=== PATIENT | female | born 1945 | race Caucasian/White ===

== ENCOUNTER 2017-06-19 12:55 | Inpatient (IN) | payer OTHER, BC ==
[~2017-06-19] VITALS: Ht 157.5 cm; Wt 77.1 kg
--- NOTE | ~2017-06-19 | H ---
[facility] [place] [address] HISTORY AND PHYSICAL Name: SARAH GROVER Room #: 463-P ADM IN M.R.#: [id number] Admission: 06/19/17 Attend Phys: Lucien Portillo MD Discharge: Date of : 47 Report #: [id number] THIS REPORT FOR: //name// CC: Lucien Dennis Harvinder DATE OF SERVICE: 06/19/2017 CHIEF COMPLAINT: Right-sided weakness. HISTORY OF PRESENT ILLNESS: The patient is a 72-year-old female with a known history of chronic intermittent relapsing multiple sclerosis who was admitted to the emergency room from [facility] for right-sided weakness. She was seen in the emergency room several days ago with just a global complaint of weakness and trouble getting around. She was asking for rehabilitation efforts at that time. As she was relatively stable she was admitted to [facility]. However, over the next couple of days, she then began complaining of right arm weakness. She had some facial and arm tingling as well. She felt this represented an exacerbation of her MS as it is very similar to symptoms she has had in her right leg previously, which has left her with a right foot drop. She was directed to the emergency room yesterday and admitted for evaluation. PAST MEDICAL HISTORY: Hypertension, chronic MS, chronic recurrent urinary tract infections, neurogenic bladder with a history of retention. She has had a right hip fracture approximately one year ago and previously a right ankle fracture 2-3 years ago. PAST SURGICAL HISTORY: Noncontributory. FAMILY HISTORY: Unknown. SOCIAL HISTORY: She lives alone in her own home. She has a daughter in town. No chronic alcohol or tobacco use. ALLERGIES: BACLOFEN, GABAPENTIN, HYDROCORTISONE, LIDOCAINE, FLAGYL, NAPROXEN, OXYBUTYNIN, PENICILLIN, LYRICA, SULFA. MEDICATIONS: BuSpar, lisinopril, metoprolol, Flomax, Protonix, amlodipine. REVIEW OF SYSTEMS: She complains of urinary frequency. Denies headache, chest pain, shortness of breath, abdominal pain, nausea, vomiting, diarrhea, constipation, dysuria, syncope. OBJECTIVE: VITAL SIGNS: Temperature 36.7, pulse 54, respirations 20, blood pressure 153/85, O2 sat 97% on room air. [address] [address] HISTORY AND PHYSICAL Name: SARAH GROVER Room #: 463-[facility] IN M.R.#: [id number] Admission: 06/19/17 Attend Phys: Lucien Portillo MD Discharge: Date of : 46 Report #: [id number] GENERAL: She is awake and alert, in no distress. HEENT: She has facial symmetry. HEAD AND NECK: Unremarkable. She has poor dentition. Her speech is clear. LUNGS: Clear. HEART: Regular. ABDOMEN: Soft, normoactive bowel sounds. EXTREMITIES: No edema. NEUROLOGIC: She moves all extremities equally. She is alert and oriented. Her global strength appears intact throughout. There is slight discoordination of the right hand at forearm. LABORATORY DATA: Urinalysis has white cells, bacteria, leukocyte esterase, white count was 12.5. Chemistry is unremarkable. CT head did not show any acute ischemic or hemorrhagic change. ASSESSMENT: 1. Multiple sclerosis exacerbation. 2. Urinary tract infection. 3. Neurogenic bladder. 4. Hypertension. PLAN: Clinically, this does not appear to be a vascular ischemic event. Her symptoms have moderated intermittently over the last couple of days with symptoms reoccurring and relapsing. Also I do not see clinical signs of an acute pneumonia. Chest x-ray more represents atelectasis. She has had no shortness of breath, hypoxia, productive cough. In fact her elevated white count may be related to oral prednisone given at the other hospital for MS exacerbation. For now empiric antibiotics given the recent urinalysis findings, which are changed from June 16. Bladder scans to rule out retention, neurology consultation, MRI of the brain. <ELECTRONICALLY SIGNED> By: Lucien Portillo MD 06/21/17 1250 0954 1051 Lucien Portillo MD /nt
--- NOTE | ~2017-06-19 | D ---
[facility] [place] [address] DISCHARGE SUMMARY Name: SARAH GROVER Room #: 463-P [facility] IN M.R.#: [id number] Admission: 06/19/17 Attend Phys: Lucien Portillo MD Discharge: 06/22/17 Date of : 46 Report #: [id number] THIS REPORT FOR: //name// CC: Lucien Dennis Harvinder FINAL DIAGNOSES: 1. Multiple sclerosis. 2. Left occipital stroke. 3. Urinary tract infection. 4. Neurogenic bladder with retention. 5. Hypertension. HOSPITAL COURSE: The patient was admitted with right arm weakness and tingling. MRI of the brain revealed a small left occipital stroke. I did not feel this MRI finding explained her right arm symptoms. She was followed by the Neurology Service. They recommended additional treatment for MS. Otherwise, no other new interventions. She had gram-negative rods in the urine, which was a change from urinalysis from ER a few days ago. She had retention issues as well. She required straight catheter patient and a Mares breathing freely overnight. PHYSICAL EXAMINATION: GENERAL: On the day of discharge, she was awake and alert, in no distress. VITAL SIGNS: She had stable vital signs. LUNGS: Clear. HEART: Regular. ABDOMEN: Soft, normoactive bowel sounds. EXTREMITIES: No edema. PLAN: She will transfer back to [facility] under the care of Dr. Andrews. I have signed her transfer orders, medications, diet and physical and occupational therapy. <ELECTRONICALLY SIGNED> By: Lucien Portillo MD 07/04/17 0923 0932 1007 Lucien Portillo MD /nt
--- NOTE | ~2017-06-19 | EKG ---
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: [id number] : 1945 Requested By: Garrick Brandon Order Number: [id number] MD: Андрей Fitzgerald Measurements Intervals [place] Rate: 63 P: -6 NJ: 268 QRS: -40 QRSD: 99 T: 2 QT: 456 QTc: 467 Interpretive Statements Sinus rhythm Prolonged [place] interval Left axis deviation Low voltage, precordial leads Abnormal R-wave progression, late transition Borderline T abnormalities, anterior leads Compared to ECG 06/30/2016 19:31:05 No significant change was found Electronically Signed On 06-20-2017 17:49:24 CDT by Андрей Fitzgerald [email or web address] <ELECTRONICALLY SIGNED> By: Андрей Fitzgerald MD, [facility] 06/20/17 1749 1327 1327 Андрей Fitzgerald MD, [facility] /EPI
[~2017-06-19 12:55] MED LIST: AMITRIPTYLINE H50 M2 PO; AMITRIPTYLINE H75 M2; AMPYRA PO; AMPYRA10 MG PO; APAP500 PO; BENADRYL ITCH28.3 G1 TOP; BUSPAR 5 MG TABL5 M1 PO; BUSPIRONE; BUSPIRONE HCL10 MG PO; BUSPIRONE HCL5 MG PO; CEFUROXIME500 MG PO; CIPRO500 MG PO; CIPROFLOXACIN500 M1 OR; CIPROFLOXACIN500 M1 PO; CITRATE OF MAG296 ML PO; CLARITIN-D 24 H1 TA1 PO; CLARITIN10 MG; CLARITIN10 MG PO; COLACE100 MG PO; COPAXONE SUBQ; COPAXONE20 M1 SQ; CORICIDIN HBP1 EACH PO; CRESTOR10 MG; CRESTOR10 MG PO; DEEP SEA NASAL44 M1 NASAL; DITROPAN XL5 M1; DOXYCYCLINE 10100 MG PO; EAR WAX DROPS15 ML OTIC; ELOCON15 GM TP; ENOXAPARIN30 MG/0.1 SUBQ; ENOXAPARIN30 MG/0.3; FLAGYL 250 MG250 MG PO; FLOMAX0.4 MG PO; FLONASE 0.05%50 MCG NASAL; HCTZ; HYDROCERIN CREA1 JAR TOP; HYDROCODONE-AP1 EAC6 PO; HYDROCORTISON-A10 ML OTIC; LEVAQUIN 500 M500 M2 PO; LIORESAL 10 MG10 MG PO; LISINOPRIL; LISINOPRIL20 MG PO; LOPRESSOR25; LOPRESSOR50 PO; MIRALAX17 GM PO; NAPROSYN500 MG PO; NORCO 5-325 TA1 EACH PO; NORVASC 5 MG TAB5 MG PO; OMEPRAZOLE; OMEPRAZOLE 20 M20 MG PO; POTASSIUM20 PO; PREDNISONE50 MG PO; ROBAXIN 750 MG750 M1 PO; ROXICODONE5 MG; TOPROL XL25 MG; TRAMADOL 50 MG50 MG PO; TYLENOL325 MG PO; ULTRAM 50MG TAB50 MG PO; VALIUM5 MG PO; VESICARE 5 MG TA5 MG PO; VESICARE10 M1 PO; ZESTRIL; [UNRECOGNIZED DRUG - OTHER]; [UNRECOGNIZED DRUG - OTHER] PO
[2017-06-19 12:56] VITALS: BP 160/69
[2017-06-19] MEDS ORDERED: PROTONIX40 M1 PO (13:17)
[2017-06-19 14:45] LABS: ABSOLUTE NEUTROPHILS 8.6 thou/uL (1.4-8.2); BASOPHILS 0.4 % (0.0-2.0); EOSINOPHILS 0.7 % (0.0-3.0); HEMATOCRIT 42.5 % (37.0-47.0); HEMOGLOBIN 14.7 gm/dL (12.0-15.0); LYMPHOCYTES 20.3 % (24.0-44.0); MCH 31.4 pg (26.0-34.0); MCHC 34.6 g/dL (28.0-37.0); MCV 90.8 fL (80.0-100.0); MONOCYTES 9.8 % (1.0-8.0); PLATELET COUNT 331 thou/uL (150-400); POLYS 68.8 % (36.0-66.0); RBC 4.68 mil/uL (4.20-5.00); WBC 12.5 thou/uL (4.0-11.0)
[2017-06-19 14:53] LABS: URINE BILIRUBIN NEGATIVE (Negative); URINE BLOOD NEGATIVE (Negative); URINE COLOR YELLOW; URINE GLUCOSE-RANDOM* NEGATIVE (Negative); URINE KETONES NEGATIVE (Negative); URINE LEUKOCYTES-REFLEX 1+ (Negative); URINE PROTEIN (DIPSTICK) NEGATIVE (Negative); URINE UROBILINOGEN 0.2 E.U./dl (0.2-1.0)
[2017-06-19 14:57] LABS: MANUAL DIFF NO
[2017-06-19 15:01] LABS: AMORPHOUS URATES Moderate /LPF (None Seen); CASTS None Seen /LPF (None Seen); SQUAMOUS 4-10 Moderate /LPF (0-3); URINE RBC None Seen /HPF (0-2); URINE WBC-REFLEX 6-15 Few /HPF (0-5)
[2017-06-19 15:07] LABS: ANION GAP 11 mmol/L (7-16); BUN 24 mg/dL (7-18); CALCIUM 9.1 mg/dL (8.5-10.1); CHLORIDE 104 mmol/L (98-107); CO2 28 mmol/L (21-32); GLUCOSE 136 mg/dL (74-106); SODIUM 143 mmol/L (136-145)
[2017-06-19 15:12] LABS: ALBUMIN 3.8 g/dL (3.4-5.0); ALKALINE PHOSPHATASE 79 U/L (46-116); SGOT 30 U/L (15-37); SGPT 26 U/L (30-65); TOTAL BILIRUBIN 0.4 mg/dL (<0.1-1.0); TOTAL PROTEIN 8.1 g/dL (6.4-8.2); TROPONIN-I < 0.04 ng/mL (<0.04-0.07)
[2017-06-19 18:18] VITALS: BP 140/74
[2017-06-19 19:47] VITALS: BP 138/56
[2017-06-19 20:09] VITALS: BP 160/84
[2017-06-20 01:18] VITALS: BP 158/70
[2017-06-20 04:05] VITALS: BP 197/87
[2017-06-20 05:39] VITALS: BP 177/88
[2017-06-20 08:46] VITALS: BP 153/85
[2017-06-20 14:28] LABS: CHOLESTEROL 297 mg/dL (<200); HDL CHOLESTEROL 36 mg/dL (>40); LDL CHOLESTEROL 205 mg/dL (<100); TC:HDL 8.3 Ratio (Not establshd); TRIGLYCERIDE 284 mg/dL (<150); VLDL 57 mg/dL (<40)
[2017-06-20 17:21] VITALS: BP 160/89
[2017-06-20 20:16] VITALS: BP 156/60
[2017-06-21 04:24] VITALS: BP 136/70
[2017-06-21 05:31] LABS: ABSOLUTE NEUTROPHILS 3.9 thou/uL (1.4-8.2); BASOPHILS 0.5 % (0.0-2.0); EOSINOPHILS 2.4 % (0.0-3.0); HEMATOCRIT 43.4 % (37.0-47.0); HEMOGLOBIN 14.4 gm/dL (12.0-15.0); MCH 30.7 pg (26.0-34.0); MCHC 33.3 g/dL (28.0-37.0); MCV 92.1 fL (80.0-100.0); MONOCYTES 11.5 % (1.0-8.0); PLATELET COUNT 300 thou/uL (150-400); POLYS 46.6 % (36.0-66.0); RBC 4.71 mil/uL (4.20-5.00); RDW 13.1 % (10.5-14.5); WBC 8.4 thou/uL (4.0-11.0)
[2017-06-21 05:38] LABS: MANUAL DIFF NO
[2017-06-21 05:47] LABS: CALCIUM 8.7 mg/dL (8.5-10.1); CREATININE 0.8 mg/dL (0.6-1.0); POTASSIUM 3.3 mmol/L (3.5-5.1)
[2017-06-21 08:30] VITALS: BP 152/76
[2017-06-21 12:27] VITALS: BP 138/72
[2017-06-21 16:08] VITALS: BP 139/66
[2017-06-21 19:57] VITALS: BP 154/75
[2017-06-22 03:38] VITALS: BP 135/69
[2017-06-22] MEDS ORDERED: LIPITOR10 MG PO (09:26)
[2017-06-22] MEDS ORDERED: ASPIR 8181 MG PO (09:26)
[2017-06-22 10:06] VITALS: BP 121/64
== END 2017-06-22 16:10 | DRG 65 ==
LOC: ER 12:55 → EROBS 15:33 → 4W 15:33
PROVIDERS: Internal Medicine Geriatric Medicine; Physician Assistant; Psychiatry & Neurology Neurology
PROC: 0HQ0XZZ Repair Scalp Skin, External Approach (ICD-10-PCS; principal; 2017-06-19)
DX: I63.9 Cerebral infarction, unspecified (principal); N39.0 Urinary tract infection, site not specified; G81.91 Hemiplegia, unspecified affecting right dominant side; H54.41 Blindness, right eye, normal vision left eye; G35 Multiple sclerosis; I10 Essential (primary) hypertension; N31.9 Neuromuscular dysfunction of bladder, unspecified; F41.9 Anxiety disorder, unspecified; S01.91XA Laceration without foreign body of unspecified part of head, initial encounter; K57.90 Diverticulosis of intestine, part unspecified, without perforation or abscess without bleeding; E78.00 Pure hypercholesterolemia, unspecified; Z60.2 Problems related to living alone; Z98.42 Cataract extraction status, left eye; Z98.41 Cataract extraction status, right eye; Z90.710 Acquired absence of both cervix and uterus; Z87.440 Personal history of urinary (tract) infections; Z88.0 Allergy status to penicillin; Z88.2 Allergy status to sulfonamides; Z88.6 Allergy status to analgesic agent; Z88.8 Allergy status to other drugs, medicaments and biological substances; Z88.1 Allergy status to other antibiotic agents; Z88.4 Allergy status to anesthetic agent; Z91.048 Other nonmedicinal substance allergy status; Z91.81 History of falling; X58.XXXA Exposure to other specified factors, initial encounter; Y93.89 Activity, other specified; Y92.89 Other specified places as the place of occurrence of the external cause; Y99.8 Other external cause status
CPT/HCPCS: 10045

== ENCOUNTER 2017-11-09 10:00 | Inpatient (IN) | payer OTHER, BC ==
[~2017-11-09] VITALS: Ht 157.5 cm; Wt 77.1 kg
--- NOTE | ~2017-11-09 | H ---
[facility] [place] [address] HISTORY AND PHYSICAL Name: SARAH GROVER Room #: 170-24 ADM IN M.R.#: [id number] Admission: 11/09/17 Attend Phys: Jeannie Blanton MD Discharge: Date of : 46 Report #: [id number] THIS REPORT FOR: //name// CC: Andrey Blanton DATE OF SERVICE: 11/09/2017 CHIEF COMPLAINT: Weakness and a fall. HISTORY OF PRESENT ILLNESS: The patient is a 72-year-old female who presented to the ER from home after sustaining a fall. She said she lost her balance and had weakness in her legs and fell over backwards, hitting her head. She denied loss of consciousness, syncope or lightheaded type feelings. She said in the last few days, she has had difficulty emptying her bladder, has had urgent urinary symptoms. She does have a long history of progressive multiple sclerosis and neurogenic bladder with recurrent urinary tract infections as a result. She has had multiple falls and admissions to the hospital and rehab in the past and several years ago, even had a right ankle fracture, then a left hip fracture that required surgical repair, hospitalization and long-term rehab. Recently, she has been at home, but has plans to move to an assisted living facility in the near future. PAST MEDICAL HISTORY: Hypertension, multiple sclerosis since 2001, dyslipidemia. She had a previous right ankle fracture approximately 4 years ago, she had recurrent UTIs. She had a right hip fracture in 05/2016. FAMILY HISTORY: Noncontributory. SOCIAL HISTORY: No chronic alcohol or tobacco use. ALLERGIES: BACLOFEN, GABAPENTIN, HYDROCORTISONE, LIDOCAINE, METRONIDAZOLE, NAPROXEN, OXYBUTYNIN, PENICILLIN, LYRICA, SULFA. MEDICATIONS: Claritin, Prilosec, BuSpar, metoprolol, lisinopril, aspirin, Lipitor, Flomax. REVIEW OF SYSTEMS: She denies headache, chest pain, shortness of breath, abdominal pain, nausea, vomiting, diarrhea, constipation, dysuria, syncope. OBJECTIVE: VITAL SIGNS: Temperature 36.7, pulse , respirations 16, blood pressure /54, O2 sat 99% on room air. GENERAL: She is awake and alert, in no distress. HEAD AND NECK: Unremarkable. There is a bruise on the back of the scalp. She has poor dentition, which is chronic. [address] [address] HISTORY AND PHYSICAL Name: SARAH GROVER Room #: 170-24 ADM IN [facility]#: [id number] Admission: 11/09/17 Attend Phys: Jeannie Blanton MD Discharge: Date of : 46 Report #: [id number] LUNGS: Clear. HEART: Regular. ABDOMEN: Soft, normoactive bowel sounds. EXTREMITIES: Trace edema. NEUROLOGIC: She has rigid weakness, especially of the right leg. LABORATORY DATA: Urinalysis had leukocyte esterase, white cells, bacteria. White count is normal. Potassium 2.7, sodium 148, calcium 6.9. CT head showed no acute intracranial process. ASSESSMENT: 1. Acute cystitis. 2. Multiple sclerosis. 3. Electrolyte disturbance. 4. Hypertension. 5. Fall. 6. Gait disturbance. PLAN: She will be admitted for medical stabilization including electrolyte replacement, IV fluids, antibiotics and therapies. Ultimately, we will have social work assess her on her transition to assisted living. <ELECTRONICALLY SIGNED> By: Lucien Portillo MD 11/10/17 0858 1308 1326 Lucien Portillo MD /nt
--- NOTE | ~2017-11-09 | EKG ---
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 Babysitter: TAMICA : 1945 Requested By: Andrey Coughlin Order Number: [id number] MD: Pradip Lui Measurements Intervals [place] Rate: 57 P: 100 CO: 281 QRS: -32 QRSD: 96 T: -2 QT: 476 QTc: 464 Interpretive Statements Sinus rhythm Prolonged [place] interval Left axis deviation Low voltage, precordial leads Abnormal R-wave progression, late transition Compared to ECG 06/19/2017 13:27:52 T-wave abnormality no longer present Electronically Signed On 11-09-2017 16:06:40 YARD WORKER by Pradip Lui [email or web address] <ELECTRONICALLY SIGNED> By: Pradip Liu MD 11/09/17 1606 1031 1031 Pradip Lui MD /EPI
[~2017-11-09 10:00] MED LIST changes: +ASPIR 8181 MG PO; +LIPITOR10 MG PO; +PRILOSEC 20 MG20 MG PO; +PROTONIX40 M1 PO
[2017-11-09 10:01] VITALS: BP 158/54
[2017-11-09 11:34] LABS: ABSOLUTE NEUTROPHILS 5.5 thou/uL (1.4-8.2); BASOPHILS 0.7 % (0.0-2.0); EOSINOPHILS 1.5 % (0.0-3.0); HEMATOCRIT 41.4 % (37.0-47.0); HEMOGLOBIN 14.3 gm/dL (12.0-15.0); LYMPHOCYTES 20.7 % (24.0-44.0); MCH 30.9 pg (26.0-34.0); MCHC 34.6 g/dL (28.0-37.0); MCV 89.3 fL (80.0-100.0); MONOCYTES 8.8 % (1.0-8.0); PLATELET COUNT 331 thou/uL (150-400); POLYS 68.3 % (36.0-66.0); RBC 4.63 mil/uL (4.20-5.00); RDW 13.2 % (10.5-14.5)
[2017-11-09 11:41] LABS: ANION GAP 13 mmol/L (7-16); BUN 10 mg/dL (7-18); CALCIUM 6.9 mg/dL (8.5-10.1); CHLORIDE 106 mmol/L (98-107); CO2 29 mmol/L (21-32); CREATININE 0.9 mg/dL (0.6-1.0); GLUCOSE 139 mg/dL (74-106); SODIUM 148 mmol/L (136-145)
[2017-11-09 11:45] LABS: POTASSIUM 2.7 mmol/L (3.5-5.1)
[2017-11-09 11:51] LABS: URINE BILIRUBIN NEGATIVE (Negative); URINE BLOOD NEGATIVE (Negative); URINE CLARITY CLEAR; URINE COLOR YELLOW; URINE GLUCOSE-RANDOM* NEGATIVE (Negative); URINE KETONES NEGATIVE (Negative); URINE NITRITE-REFLEX NEGATIVE (Negative); URINE PROTEIN (DIPSTICK) NEGATIVE (Negative); URINE UROBILINOGEN 0.2 E.U./dl (0.2-1.0)
[2017-11-09 11:53] LABS: TROPONIN-I < 0.04 ng/mL (<0.06)
[2017-11-09 11:54] LABS: URINE LEUKOCYTES-REFLEX 2+ (Negative)
[2017-11-09 11:58] LABS: BACTERIA-REFLEX >30 Many /HPF (None Seen); CASTS None Seen /LPF (None Seen); CRYSTALS None Seen /LPF (None Seen); SQUAMOUS 0-3 Few /LPF (0-3); URINE RBC None Seen /HPF (0-2)
[2017-11-09] MEDS ORDERED: VESICARE 5 MG TA5 MG PO (13:22)
[2017-11-09] MEDS ORDERED: NORVASC10 MG PO (13:22)
[2017-11-09] MEDS ORDERED: ASPIR 8181 MG PO (13:23)
[2017-11-09 15:27] VITALS: BP 136/56
[2017-11-09 16:03] VITALS: BP 152/71
[2017-11-09 16:58] VITALS: BP 155/69
[2017-11-10 06:18] VITALS: BP 135/80
[2017-11-10 08:14] LABS: CALCIUM 6.7 mg/dL (8.5-10.1); CREATININE 0.8 mg/dL (0.6-1.0)
[2017-11-10 08:16] LABS: POTASSIUM 2.8 mmol/L (3.5-5.1)
[2017-11-10 11:00] VITALS: BP 164/54
[2017-11-10 11:30] VITALS: BP 130/69
[2017-11-10 11:42] VITALS: BP 130/69
[2017-11-10 13:59] LABS: CALCIUM 6.7 mg/dL (8.5-10.1); CREATININE 0.8 mg/dL (0.6-1.0)
[2017-11-10 14:01] LABS: POTASSIUM 2.8 mmol/L (3.5-5.1)
[2017-11-10 15:34] VITALS: BP 141/65
[2017-11-10 18:56] LABS: CALCIUM 6.7 mg/dL (8.5-10.1); CREATININE 0.9 mg/dL (0.6-1.0); POTASSIUM 3.2 mmol/L (3.5-5.1)
[2017-11-10 19:01] LABS: MAGNESIUM 0.6 mg/dL (1.8-2.4)
[2017-11-10 19:43] VITALS: BP 127/55
[2017-11-10 20:30] LABS: CALCIUM 6.5 mg/dL (8.5-10.1)
[2017-11-11 00:42] LABS: POTASSIUM 3.1 mmol/L (3.5-5.1)
[2017-11-11 01:42] LABS: ALBUMIN 3.1 g/dL (3.4-5.0); CALCIUM 6.5 mg/dL (8.5-10.1); TOTAL BILIRUBIN 0.3 mg/dL (<0.1-1.0); TOTAL PROTEIN 6.9 g/dL (6.4-8.2)
[2017-11-11 08:30] LABS: MAGNESIUM 2.7 mg/dL (1.8-2.4); POTASSIUM 3.8 mmol/L (3.5-5.1)
[2017-11-11 09:57] VITALS: BP 151/62
[2017-11-11 16:07] VITALS: BP 137/66
[2017-11-11 19:31] VITALS: BP 144/59
[2017-11-12 03:57] VITALS: BP 178/76
[2017-11-12 07:33] VITALS: BP 178/67
[2017-11-12 16:23] VITALS: BP 160/65
[2017-11-12 19:32] VITALS: BP 154/62
[2017-11-13 04:25] VITALS: BP 154/52
[2017-11-13 08:46] VITALS: BP 158/68
[2017-11-13] MEDS ORDERED: CIPRO500 MG PO (13:21)
[2018-02-06] MEDS ORDERED: MAGNESIUM400 MG PO (10:19)
[2018-02-06] MEDS ORDERED: TUMS PO (10:19)
[2018-02-06] MEDS ORDERED: VITAMIN D2000 UNIT PO (10:19)
== END 2017-11-13 18:00 | DRG 690 ==
LOC: ER 10:00 → EROBS 13:04 → ER 13:04 → 4S 13:04
PROVIDERS: Emergency Medicine; Internal Medicine Geriatric Medicine; Nurse Practitioner Family
DX: N30.00 Acute cystitis without hematuria (principal); E87.6 Hypokalemia; I10 Essential (primary) hypertension; E78.5 Hyperlipidemia, unspecified; G35 Multiple sclerosis; E87.8 Other disorders of electrolyte and fluid balance, not elsewhere classified; K57.90 Diverticulosis of intestine, part unspecified, without perforation or abscess without bleeding; F41.9 Anxiety disorder, unspecified; R26.9 Unspecified abnormalities of gait and mobility; E78.00 Pure hypercholesterolemia, unspecified; W18.39XA Other fall on same level, initial encounter; Y93.89 Activity, other specified; Y92.098 Other place in other non-institutional residence as the place of occurrence of the external cause; Y99.8 Other external cause status; Z87.81 Personal history of (healed) traumatic fracture; Z88.2 Allergy status to sulfonamides; Z88.0 Allergy status to penicillin; Z88.8 Allergy status to other drugs, medicaments and biological substances; Z98.42 Cataract extraction status, left eye; Z98.41 Cataract extraction status, right eye; Z90.710 Acquired absence of both cervix and uterus; Z79.899 Other long term (current) drug therapy
CPT/HCPCS: 10195

== ENCOUNTER 2017-11-13 15:35 | Inpatient (IN) | payer OTHER, BC ==
[~2017-11-13] VITALS: Ht 157.5 cm; Wt 84.8 kg
--- NOTE | ~2017-11-13 | PLAN ---
[facility] [place] [address] REHAB UNIT PLAN OF CARE Name: SARAH GROVER Room #: 511-P ADM IN M.R.#: [id number] Admission: 11/13/17 Attend Phys: Lucien Stephens MD Discharge: Date of : 46 Report #: [id number] THIS REPORT FOR: //name// CC: Lucien Dennis Harvinder DATE OF SERVICE: 11/15/2017 The patient is seen back today in followup. She is in no distress. Last recorded temperature 37.1, pulse 67, respirations 18, blood pressure 155/73. She is working in therapies with transfers, improving to a min assist. Gait has improved to min assist 68 feet 4-wheeled walker with a right AFO. In occupational therapy, lower body dressing is min assist. ASSESSMENT: 1. Multiple sclerosis exacerbation. 2. Acute cystitis. 3. Gait instability with frequent falls. 4. Electrolyte disturbance. 5. Hypertension. 6. Functional mobility and ADL deficits with a decline from premorbid. PLAN: The overall plan of care is based on the preadmission screen, post-admission physician evaluation and information garnered from therapy assessments. 1. Estimated length of stay is set for a week from today. Planning for discharge next Monday as per team conference yesterday. 2. Medical prognosis is reasonably good. 3. Anticipated interventions includes the interdisciplinary acute inpatient rehabilitation program with PT and OT, rehab nursing assisting regarding medication management, skin care prophylaxis, bowel and bladder issues and nursing education. The tour consultant physician continues to follow along with the interdisciplinary rehab therapy team. 4. Anticipated functional outcomes would be for the patient to become modified independent at a walker level, so that she can return back to the home setting. 5. Discharge destination would be back to her home. She is currently in the process of moving into an independent living apartment. 6. Expected therapy by discipline includes PT and OT 1-1/2 hours per day each 5 days a week throughout the duration of the acute inpatient rehabilitation stay. <ELECTRONICALLY SIGNED> By: Lucien Stephens MD 11/16/17 1442 1029 1633 Lucien Stehpens MD /[facility]
--- NOTE | ~2017-11-13 | H ---
[facility] [place] [address] HISTORY AND PHYSICAL Name: SARAH GROVER Room #: 511-P ADM IN M.R.#: [id number] Admission: 11/13/17 Attend Phys: Lucien Stephens MD Discharge: Date of : 46 Report #: [id number] THIS REPORT FOR: //name// CC: Lucien Dennis Harvinder DATE OF SERVICE: 11/13/2017 HISTORY AND PHYSICAL/POST-ADMISSION PHYSICIAN EVALUATION HISTORY OF PRESENT ILLNESS: The patient is a 72-year-old white female with history of multiple sclerosis since 2001, who was originally admitted to [facility] after sustaining a fall at home. She apparently lost her balance and had weakness in her legs and fell over backwards hitting her head. She denied loss of consciousness. In the few days prior to the previous admission, she had noted difficulty emptying her bladder and had urgent urinary symptoms. She has a long history of progressive multiple sclerosis and neurogenic bladder with recurrent urinary tract infections. She has had multiple falls and has had a prior right ankle fracture and then left hip fracture requiring surgical repair. She was admitted, diagnosed with an MS exacerbation from an acute urinary tract infection. She has been treated with antibiotics. She has had a significant functional decline from her premorbid status and has now been admitted for acute in-hospital inpatient rehabilitation. PAST MEDICAL HISTORY: Includes hypertension, multiple sclerosis since 2001, dyslipidemia, prior right ankle fracture approximately 4 years ago, recurrent UTIs. She has had a prior right hip fracture in 05/2016. FAMILY HISTORY: Noncontributory. MEDICATIONS: Please see the full medication listing. Each of these was individually reconciled that includes vitamins, herbals and supplements. SOCIAL HISTORY: She lives in a single story house and has been utilizing a walker. No steps. Living alone. Plan is to move into an apartment. Family is involved in assisting with this. ALLERGIES: BACLOFEN, NEURONTIN, HYDROCORTISONE, LIDOCAINE, METRONIDAZOLE, NAPROXEN, OXYBUTYNIN, PENICILLIN, LYRICA, AND SULFA. REVIEW OF SYSTEMS: No complaints of visual problems, headache, shortness of breath, chest pain, abdominal discomfort. She notes she has stiffness, especially of the right lower extremity and has a fear of falling. No current focal extremity pain complaints. PHYSICAL EXAMINATION: [address] [address] HISTORY AND PHYSICAL Name: SARAH GROVER Room #: 511-P [facility] IN .R.#: [id number] Admission: 11/13/17 Attend Phys: Lucien Stephens MD Discharge: Date of : 46 Report #: [id number] GENERAL: A 72-year-old white female in no obvious distress. VITAL SIGNS: Last recorded temperature 97.9, pulse 69, respirations 20, blood pressure 166/70. The patient is alert. HEENT: Reveals right eye exophthalmus. She may have some lateral nystagmus. Face is otherwise appeared symmetric. She is able to express her needs. CHEST: Sounded clear to auscultation. CARDIOVASCULAR: Regular rate and rhythm. ABDOMEN: Bowel sounds positive, nontender. GENITOURINARY AND RECTAL: Deferred. EXTREMITIES: Functional range of motion of the upper extremities. Some increased tone bilaterally, plus minus Galvez's. Ttunct-vt-xvqy was slightly decreased in the lower extremities, she does have some increased tone in both lower extremities, there is no clonus at the ankles; however, except for a hint on the right. Strength is probably a 4-/5 proximally. She does have some weakness distally more of that right ankle, which is more of a 3-3+. Left ankle is probably more of a grade 3+ to 4-. DTRs of the knees were grade 1-2. Functionally, she has been min assist for bed to chair transfers, min assist to ambulate a short distance 4-5 feet using a walker. She does have a fear of falling. ASSESSMENT: A 72-year-old white female with the following problem list: 1. Multiple sclerosis exacerbation. 2. Acute cystitis. 3. Gait instability with frequent falls. 4. Functional mobility and ADL deficits with decline from premorbid. 5. Electrolyte disturbance. 6. Hypertension. 7. Prior right ankle fracture. 8. Prior right hip fracture. PLAN: The patient is admitted for acute in-hospital inpatient rehabilitation. From a postadmission physician evaluation perspective, there are no relevant changes since the preadmission screening. Please see the above review of prior and current medical and functional conditions and comorbidities. Please see the patient's previous and current functional status. As far as risk of complication, she does have the above noted comorbidities. Initial plan of care involves the interdisciplinary acute inpatient rehabilitation program with the goal of maximizing the patient's functional independence, so that she can hopefully return back to her prior living situation. Prognosis is reasonably good with estimated length of stay hopefully fairly short as I know she wants to get back to her home setting. She does want her move into the apartment. I would like to stay of 5-10 days pending progress. Potential barriers would include her multiple medical comorbidities and decreased functional status. The patient's diagnosis is appropriate for an acute in-hospital inpatient rehabilitation stay. She does meet medical necessity criteria and she has [address] [address] HISTORY AND PHYSICAL Name: SARAH GROVER Room #: 511-P ADM IN M.R.#: [id number] Admission: 11/13/17 Attend Phys: Lucien Stephens MD Discharge: Date of : 47 Report #: [id number] appropriate tolerance for therapies. We will have the hospice care sales consultant physicians continue to follow. She does have appropriate discharge goals back to the home setting. <ELECTRONICALLY SIGNED> By: Lucien Stephens MD 11/14/17 1109 0727 0751 Lucien Stephens MD /[facility]
--- NOTE | ~2017-11-13 | HC ---
[facility] [place] [address] CONSULTATION Name: SARAH GROVER Room #: 511-P ADM IN M.R.#: [id number] Admission: 11/13/17 Attend Phys: Lucien Stephens MD Discharge: Date of : 47 Report #: [id number] THIS REPORT FOR: //name// CC: Lucien Dennis Harvinder DATE OF SERVICE: 11/18/2017 NEUROBEHAVIORAL STATUS EXAM ATTENDING PHYSICIAN: Lucien Stephens MD MANAGER BAKERY: Zachery Rivas, PhD CLINICAL PRESENTATION: The patient is a 72-year-old female admitted to the rehab unit at [facility] for comprehensive inpatient rehabilitation program to improve functional mobility, activities of daily living and self-care and mental status secondary to an acute exacerbation of multiple sclerosis. The patient was initially diagnosed with MS in 2001. Most recently, she lost her balance and fell backward striking her head. She does not report a loss of consciousness. Her medical diagnoses include multiple sclerosis exacerbation, acute cystitis, gait instability with frequent falls, functional mobility and ADL deficits with decline, electrolyte disturbance, hypertension, prior right ankle fracture and right hip fracture. A complete description of her medical condition and history along with medications can be found in her medical record. Neuropsychological consultation was requested to provide assistance in the assessment of cognitive and emotional status and to provide recommendations and services. Prior to this most recent admission, she was living by herself in her home. The patient had one child that in 2014. She has one living brother. Her sister around 2000 and her in 2001. The patient is a high school graduate. 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 The patient was reluctant to acknowledge any history of treatment for anxiety and depression. She was somewhat guarded about self-disclosure. TECHNIQUES UTILIZED: Clinical interview, review of medical records, staff consultation and behavioral observation, Mini-Mental Status exam 2 standard version and category fluency and clock drawing. EXAMINATION FINDINGS: The patient was alert and cooperative with the assessment. However, she did become guarded and defensive as the evaluation progressed. Patient appears to have severe problems with dental hygiene and. [facility] [address] [place] [address] CONSULTATION Name: SARAH GROVER Room #: 511-P [facility] IN M.R.#: [id number] Admission: 11/13/17 Attend Phys: Lucien Stephens MD Discharge: Date of : 46 Report #: [id number] Her symptoms are reported to include sleep disturbance. She does not report difficulty with cognitive functioning, appetite or energy. She was guarded during the assessment. The patient is somewhat paranoid as she questioned the purpose and the meaning behind the evaluation. Her performance on the MMSE 2 brief version was within normal limits with a raw score of 14 of 16. She was 3/3 for initial registration, 5/5 for orientation to time and place. She was 1/3 for immediate recall of 3 items after a brief time delay and distraction. Her performance on the MMSE 2 standard version declined to a raw score of 23 of 30, T score of 34, percentile rank of 5. She was 1/5 for serial sevens. She was 2/2 for naming, 1/1 for repetition, 3/3 for auditory comprehension. She could read and follow a single command. Deficits are noted in upper extremity coordination and drawing. Overall, score was in the mild to moderate range of impairment. Performance in category fluency was in the borderline range with a T score of 31 and percentile rank of 3. Deficits are noted with immediate recall, sustained attention and concentration and executive functioning. Her mood appears guarded and defensive. DIAGNOSTIC IMPRESSION: Neurocognitive disorder, secondary to multiple sclerosis and possible concussion -- with decreased insight and intermittent irritability -- extent to be determined likely in the mild to moderate range. Unspecified anxiety disorder. RECOMMENDATIONS: The patient will require assistance in the management of medication, finances and nutrition. She lacks insight into the severity of her condition and is guarded in admitting to havng problems. However, she does report plans to move into a correction apartment at [facility], which will likely provide the adequate structure and supervision that she needs to maintain safety. The use of breathing strategies to assist in management and anxiety along with reassurance and praise and complements about participation in therapies will assist in acquiring cooperation. Structuring her environment so that she is able to control will also help lessen anxiety, e.g., example call light near her chair and asking if she requires any additional setup before leaving the room. [facility] [address] [place] [address] CONSULTATION Name: SARAH GROVER Room #: 511-P ADM IN M.R.#: [id number] Admission: 11/13/17 Attend Phys: Lucien Stephens MD Discharge: Date of : 46 Report #: [id number] Thank you very much for allowing me to provide the consultation on this patient. <ELECTRONICALLY SIGNED> By: Zachery Rivas, PhD 11/19/17 1305 1641 0558 Zachery Rivas, PhD /nt
[~2017-11-13 15:35] MED LIST changes: +NORVASC10 MG PO
[2017-11-13 20:00] VITALS: BP 166/70
[2017-11-14 05:02] LABS: HEMATOCRIT 39.3 % (37.0-47.0); HEMOGLOBIN 13.1 gm/dL (12.0-15.0); MCH 30.8 pg (26.0-34.0); MCHC 33.5 g/dL (28.0-37.0); RBC 4.27 mil/uL (4.20-5.00); RDW 13.6 % (10.5-14.5)
[2017-11-14 05:11] LABS: CALCIUM 8.7 mg/dL (8.5-10.1); CREATININE 0.8 mg/dL (0.6-1.0); POTASSIUM 4.2 mmol/L (3.5-5.1)
[2017-11-14 08:00] VITALS: BP 147/83
[2017-11-14 19:24] VITALS: BP 169/67
[2017-11-15 06:47] VITALS: BP 155/73
[2017-11-15 19:13] VITALS: BP 131/73
[2017-11-16 08:00] VITALS: BP 160/70
[2017-11-16 19:15] VITALS: BP 157/76
[2017-11-17 07:58] VITALS: BP 175/90
[2017-11-17 20:18] VITALS: BP 149/58
[2017-11-18 07:31] VITALS: BP 192/59
[2017-11-18 20:00] VITALS: BP 144/72
[2017-11-19 10:15] VITALS: BP 138/66
[2017-11-19 20:14] VITALS: BP 124/52
[2017-11-20 07:40] VITALS: BP 157/72
[2017-11-20 19:41] VITALS: BP 154/70
[2017-11-21 08:00] VITALS: BP 134/59
[2017-11-21] MEDS ORDERED: VESICARE10 M1 PO (09:41)
[2017-11-21 14:22] VITALS: BP 157/72
[2017-11-21 19:00] VITALS: BP 148/78
[2017-11-22 08:58] VITALS: BP 157/72
[2017-11-22 09:14] VITALS: BP 157/72
[2017-11-23 09:41] VITALS: BP 157/72
[2018-02-06] MEDS ORDERED: MAGNESIUM400 MG PO (10:19)
[2018-02-06] MEDS ORDERED: VITAMIN D2000 UNIT PO (10:19)
[2018-02-06] MEDS ORDERED: TUMS PO (10:19)
== END 2017-11-22 10:00 | disposition home health service (06) | DRG 59 ==
LOC: ENTRNSPT 11-22 09:47
PROVIDERS: Physical Medicine & Rehabilitation
DX: G35 Multiple sclerosis (principal); N30.00 Acute cystitis without hematuria; I10 Essential (primary) hypertension; R41.9 Unspecified symptoms and signs involving cognitive functions and awareness; F41.9 Anxiety disorder, unspecified; E78.5 Hyperlipidemia, unspecified; Z88.0 Allergy status to penicillin; Z88.2 Allergy status to sulfonamides; Z88.8 Allergy status to other drugs, medicaments and biological substances; Z87.81 Personal history of (healed) traumatic fracture; Z79.899 Other long term (current) drug therapy; Z79.82 Long term (current) use of aspirin
CPT/HCPCS: 10112

== ENCOUNTER 2017-12-26 16:36 | Emergency (ER) | payer OTHER, BC ==
[~2017-12-26] VITALS: Ht 162.6 cm; Wt 81.7 kg
[2017-12-26 18:44] VITALS: BP 145/72
[2018-02-06] MEDS ORDERED: VITAMIN D2000 UNIT PO (10:19)
[2018-02-06] MEDS ORDERED: TUMS PO (10:19)
[2018-02-06] MEDS ORDERED: MAGNESIUM400 MG PO (10:19)
== END 2017-12-26 18:46 | disposition home or self-care (01) ==
LOC: ER 16:36
DX: S86.211A Strain of muscle(s) and tendon(s) of anterior muscle group at lower leg level, right leg, initial encounter (principal); I10 Essential (primary) hypertension; E78.00 Pure hypercholesterolemia, unspecified; F41.9 Anxiety disorder, unspecified; Z88.1 Allergy status to other antibiotic agents; Z90.710 Acquired absence of both cervix and uterus; Z88.8 Allergy status to other drugs, medicaments and biological substances; Z88.0 Allergy status to penicillin; X58.XXXA Exposure to other specified factors, initial encounter; Y93.89 Activity, other specified; Y92.89 Other specified places as the place of occurrence of the external cause; Y99.8 Other external cause status

== ENCOUNTER 2018-02-09 19:58 | Inpatient (IN) | payer OTHER, BC ==
[~2018-02-09] VITALS: Ht 162.6 cm; Wt 75.4 kg
--- NOTE | ~2018-02-09 | D ---
[facility] [place] [address] DISCHARGE SUMMARY Name: SARAH GROVER Room #: 412-P [facility] IN M.R.#: [id number] Admission: 02/09/18 Attend Phys: Deniz Sylvester Discharge: 02/12/18 Date of : 46 Report #: [id number] THIS REPORT FOR: //name// CC: Carlos Blanton DATE OF SERVICE: 02/12/2018 FINAL DIAGNOSES: 1. Right hip pain. 2. Accidental fall. 3. Multiple sclerosis. 4. Hypertension. 5. 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 6. Right foot drop. HOSPITAL COURSE: The patient was admitted after a fall at her assisted living apartment. She complained of right hip pain, but x-rays were negative for acute fracture. She was treated conservatively. She had no other interval complications. Her usual medications from home were continued. Therapies were initiated. DISPOSITION: She will transfer to [facility]. I signed her transfer orders and medication list. PT, OT, diet, activity as tolerated. Follow up with Dr. Blanton. By: 1139 [id number] Lucien Portillo MD /nt
--- NOTE | ~2018-02-09 | H ---
[facility] [place] [address] HISTORY AND PHYSICAL Name: SARAH GROVER Room #: 412-P [facility] IN M.R.#: [id number] Admission: 02/09/18 Attend Phys: Deniz Sylvester Discharge: 02/12/18 Date of : 46 Report #: [id number] THIS REPORT FOR: //name// CC: Carlos Dennis Harvinder DATE OF SERVICE: 02/10/2018 HISTORY OF PRESENT ILLNESS: This is a 73-year-old female, just dismissed from the hospital 2 days ago and was transferred to her custodial center and apparently, she is in independent living and fell yesterday and injured her right hip that had been repaired a couple of years ago with open reduction and internal fixation. She now cannot bear weight on the right hip and is uncomfortable sitting. When she is lying down, she said that she is fine. PAST MEDICAL HISTORY: Noteworthy for multiple sclerosis and she is frail from that disease process. MEDICATIONS: Noted. PHYSICAL EXAMINATION: GENERAL: Shows her to be awake, alert and oriented. She is in no distress, lying in bed. VITAL SIGNS: Stable. HEENT: Otherwise negative. NECK: Supple without thyromegaly or adenopathy. CHEST: Clear. CARDIOVASCULAR: Shows a regular rate and rhythm. ABDOMEN: Soft and nontender. EXTREMITIES: Right hip was irritable with movement. ASSESSMENT AND PLAN: 1. After reviewing the CT image, which probably suboptimal due to metal artifact and the plain films, it is not clear to the etiology of her pain, but certainly it is a worry that there is loosening of the screw that is in the right hip due to the recent fall. We will have orthopedic service evaluate. We will manage her pain, keep her bed rest for the next 24 hours and await further information. 2. Multiple sclerosis. <ELECTRONICALLY SIGNED> By: Carlos Elam MD 02/13/18 1257 0927 0948 Carlos Elam MD /nt
[~2018-02-09 19:58] MED LIST changes: +MAGNESIUM400 MG PO; +TUMS PO; +VITAMIN D2000 UNIT PO
[2018-02-09 20:02] VITALS: BP 167/83
[2018-02-09 20:50] LABS: ABSOLUTE NEUTROPHILS 6.3 thou/uL (1.4-8.2); BASOPHILS 0.6 % (0.0-2.0); EOSINOPHILS 1.6 % (0.0-3.0); HEMATOCRIT 39.4 % (37.0-47.0); HEMOGLOBIN 13.3 gm/dL (12.0-15.0); LYMPHOCYTES 19.7 % (24.0-44.0); MCHC 33.9 g/dL (28.0-37.0); MCV 88.6 fL (80.0-100.0); MONOCYTES 11.5 % (1.0-8.0); PLATELET COUNT 340 thou/uL (150-400); POLYS 66.6 % (36.0-66.0); RBC 4.45 mil/uL (4.20-5.00); RDW 14.6 % (10.5-14.5); WBC 9.5 thou/uL (4.0-11.0)
[2018-02-09 21:01] LABS: CALCIUM 8.7 mg/dL (8.5-10.1); POTASSIUM 5.5 mmol/L (3.5-5.1)
[2018-02-09 22:01] VITALS: BP 158/77
[2018-02-09 22:22] VITALS: BP 168/84
[2018-02-10 05:19] VITALS: BP 173/100
[2018-02-10 08:47] VITALS: BP 171/80
[2018-02-10 16:00] VITALS: BP 186/65
[2018-02-10 20:07] VITALS: BP 160/86
[2018-02-11 04:00] VITALS: BP 197/97
[2018-02-11 09:39] VITALS: BP 184/82
[2018-02-11 17:13] VITALS: BP 180/78
[2018-02-11 20:44] VITALS: BP 160/75
[2018-02-12 04:49] VITALS: BP 193/89
[2018-02-12 08:47] VITALS: BP 170/89
[2018-02-12] MEDS ORDERED: ACETAMINOPHEN325 M1 PO (16:01)
[2018-02-12] MEDS ORDERED: HYDROCODON-ACE1 EAC7 PO (16:02)
== END 2018-02-12 18:16 | DRG 605 ==
LOC: ER 19:58 → 4N 21:08 → EROBS 21:08 → 4N 22:01
PROVIDERS: Nurse Practitioner Family
DX: S70.01XA Contusion of right hip, initial encounter (principal); I69.951 Hemiplegia and hemiparesis following unspecified cerebrovascular disease affecting right dominant side; G35 Multiple sclerosis; I10 Essential (primary) hypertension; E78.5 Hyperlipidemia, unspecified; K57.90 Diverticulosis of intestine, part unspecified, without perforation or abscess without bleeding; F41.9 Anxiety disorder, unspecified; R29.6 Repeated falls; Z98.42 Cataract extraction status, left eye; Z98.41 Cataract extraction status, right eye; Z90.710 Acquired absence of both cervix and uterus; Z88.2 Allergy status to sulfonamides; Z88.0 Allergy status to penicillin; Z88.8 Allergy status to other drugs, medicaments and biological substances; Z79.82 Long term (current) use of aspirin; Z79.899 Other long term (current) drug therapy; W18.39XA Other fall on same level, initial encounter; Y93.89 Activity, other specified; Y92.89 Other specified places as the place of occurrence of the external cause; Y99.8 Other external cause status
CPT/HCPCS: 10091

== ENCOUNTER 2018-03-06 02:03 | Emergency (ER) | payer OTHER, BC ==
[~2018-03-06] VITALS: Ht 162.6 cm; Wt 72.6 kg
[~2018-03-06 02:03] MED LIST changes: +ACETAMINOPHEN325 M1 PO; +HYDROCODON-ACE1 EAC7 PO
[2018-03-06 02:47] LABS: URINE BILIRUBIN NEGATIVE (Negative); URINE BLOOD NEGATIVE (Negative); URINE CLARITY CLOUDY; URINE COLOR YELLOW; URINE GLUCOSE-RANDOM* NEGATIVE (Negative); URINE KETONES NEGATIVE (Negative); URINE NITRITE-REFLEX NEGATIVE (Negative); URINE PROTEIN (DIPSTICK) 1+ (Negative); URINE SPECIFIC GRAVITY 1.015 (1.005-1.035); URINE UROBILINOGEN 0.2 E.U./dl (0.2-1.0)
[2018-03-06 02:48] LABS: URINE LEUKOCYTES-REFLEX TRACE (Negative)
[2018-03-06 02:52] LABS: ABSOLUTE NEUTROPHILS 5.5 thou/uL (1.4-8.2); BASOPHILS 0.8 % (0.0-2.0); EOSINOPHILS 1.7 % (0.0-3.0); HEMOGLOBIN 15.4 gm/dL (12.0-15.0); LYMPHOCYTES 21.6 % (24.0-44.0); MCH 30.3 pg (26.0-34.0); MCHC 34.1 g/dL (28.0-37.0); MCV 88.7 fL (80.0-100.0); MONOCYTES 10.9 % (1.0-8.0); PLATELET COUNT 395 thou/uL (150-400); RBC 5.08 mil/uL (4.20-5.00); RDW 14.9 % (10.5-14.5); WBC 8.5 thou/uL (4.0-11.0)
[2018-03-06 03:00] LABS: CALCIUM 10.5 mg/dL (8.5-10.1); CREATININE 1.4 mg/dL (0.6-1.0); POTASSIUM 3.8 mmol/L (3.5-5.1)
[2018-03-06 03:01] LABS: BACTERIA-REFLEX >30 Many /HPF (None Seen); CASTS None Seen /LPF (None Seen); CRYSTALS None Seen /LPF (None Seen); MUCUS 0-3 Light strn/LPF (None Seen); SQUAMOUS >10 Many /LPF (0-3); URINE RBC None Seen /HPF (0-2)
[2018-03-06 03:02] LABS: AMORPHOUS PHOSPHATES Many /LPF (None Seen); TRIPLE PHOSPHATE CRYSTALS >10 Many /LPF (None Seen)
[2018-03-06 03:06] LABS: ALBUMIN 4.2 g/dL (3.4-5.0); DIRECT BILIRUBIN 0.1 mg/dL (<0.1-0.3); TOTAL BILIRUBIN 0.7 mg/dL (<0.1-1.0); TOTAL PROTEIN 8.6 g/dL (6.4-8.2)
[2018-03-06] MEDS ORDERED: CIPROFLOXACIN500 M1 PO (03:45)
[2018-03-06] MEDS ORDERED: ZOFRAN ODT4 MG PO (03:45)
== END 2018-03-06 04:18 | disposition home or self-care (01) ==
LOC: ER 02:03
PROVIDERS: Emergency Medicine
DX: N39.0 Urinary tract infection, site not specified (principal); R11.0 Nausea; I10 Essential (primary) hypertension; E78.5 Hyperlipidemia, unspecified; F41.9 Anxiety disorder, unspecified; Z90.89 Acquired absence of other organs; Z88.0 Allergy status to penicillin; Z88.1 Allergy status to other antibiotic agents; Z88.6 Allergy status to analgesic agent; Z88.8 Allergy status to other drugs, medicaments and biological substances

== ENCOUNTER 2018-03-12 11:12 | Emergency (ER) | payer OTHER, BC ==
[~2018-03-12] VITALS: Ht 157.5 cm; Wt 81.7 kg
--- NOTE | ~2018-03-12 | EKG ---
[address] [address] ELECTROCARDIOGRAM REPORT Name: SARAH GROVER [facility] [id number] Admission: 03/12/18 Attend Phys: Discharge: 03/12/18 Date of : 46 Report #: [id number] THIS REPORT FOR: //name// [facility] ED Test Date: 2018-03-12 Test Time: 11:41:31 Pat Name: SARAH GROVER Department: Room: Gender: F Tie Layer: KF : 1945 Requested By: Garrick Brandon Order Number: [id number] MD: Pradip Lui Measurements Intervals [place] Rate: 60 P: 43 DC: 274 QRS: -41 QRSD: 95 T: 50 QT: 433 QTc: 433 Interpretive Statements Sinus rhythm Prolonged DC interval Left axis deviation Abnormal R-wave progression, late transition Compared to ECG 02/03/2018 10:28:43 Myocardial infarct finding no longer present Electronically Signed On 03-12-2018 15:46:22 CDT by Pradip Lui [email or web address] <ELECTRONICALLY SIGNED> By: Pradip Lui MD 03/12/18 1546 1141 1141 Pradip Lui MD /DARYN
[~2018-03-12 11:12] MED LIST changes: +ZOFRAN ODT4 MG PO
[2018-03-12 12:01] LABS: ABSOLUTE NEUTROPHILS 9.8 thou/uL (1.4-8.2); BASOPHILS 0.5 % (0.0-2.0); EOSINOPHILS 0.6 % (0.0-3.0); HEMATOCRIT 44.1 % (37.0-47.0); HEMOGLOBIN 15.1 gm/dL (12.0-15.0); LYMPHOCYTES 14.2 % (24.0-44.0); MCH 30.3 pg (26.0-34.0); MCHC 34.2 g/dL (28.0-37.0); MCV 88.5 fL (80.0-100.0); MONOCYTES 7.7 % (1.0-8.0); PLATELET COUNT 337 thou/uL (150-400); RBC 4.99 mil/uL (4.20-5.00); RDW 14.9 % (10.5-14.5); WBC 12.7 thou/uL (4.0-11.0)
[2018-03-12 12:08] LABS: ANION GAP 7 mmol/L (7-16); BUN 20 mg/dL (7-18); CALCIUM 10.1 mg/dL (8.5-10.1); CHLORIDE 104 mmol/L (98-107); CO2 28 mmol/L (21-32); CREATININE 1.1 mg/dL (0.6-1.0); GLUCOSE 141 mg/dL (74-106); POTASSIUM 3.8 mmol/L (3.5-5.1); SODIUM 139 mmol/L (136-145)
[2018-03-12 12:17] LABS: TROPONIN-I < 0.04 ng/mL (<0.06)
[2018-03-12 13:29] LABS: URINE BILIRUBIN NEGATIVE (Negative); URINE BLOOD NEGATIVE (Negative); URINE CLARITY CLOUDY; URINE COLOR YELLOW; URINE GLUCOSE-RANDOM* NEGATIVE (Negative); URINE KETONES NEGATIVE (Negative); URINE NITRITE-REFLEX NEGATIVE (Negative); URINE PROTEIN (DIPSTICK) NEGATIVE (Negative); URINE UROBILINOGEN 0.2 E.U./dl (0.2-1.0)
[2018-03-12 13:30] LABS: URINE LEUKOCYTES-REFLEX 1+ (Negative)
[2018-03-12 13:40] LABS: SSA (PROTEIN CONFIRMATORY) TRACE (APPROX. 5) mg/dL (Negative)
[2018-03-12 13:47] LABS: CASTS None Seen /LPF (None Seen); CRYSTALS None Seen /LPF (None Seen); SQUAMOUS 0-3 Few /LPF (0-3)
[2018-03-12 13:50] LABS: BACTERIA-REFLEX >30 Many /HPF (None Seen); URINE RBC None Seen /HPF (0-2); URINE WBC-REFLEX 6-15 Few /HPF (0-5)
[2018-03-12] MEDS ORDERED: KEFLEX500 M1 PO (13:53)
== END 2018-03-12 15:00 | disposition home or self-care (01) ==
LOC: ER 11:12
PROVIDERS: Physician Assistant
DX: S01.81XA Laceration without foreign body of other part of head, initial encounter (principal); N39.0 Urinary tract infection, site not specified; I10 Essential (primary) hypertension; E78.5 Hyperlipidemia, unspecified; F41.9 Anxiety disorder, unspecified; Z90.89 Acquired absence of other organs; Z88.0 Allergy status to penicillin; Z88.1 Allergy status to other antibiotic agents; Z88.6 Allergy status to analgesic agent; Z91.048 Other nonmedicinal substance allergy status; Z88.8 Allergy status to other drugs, medicaments and biological substances; W07.XXXA Fall from chair, initial encounter; Y93.89 Activity, other specified; Y92.89 Other specified places as the place of occurrence of the external cause; Y99.8 Other external cause status

== ENCOUNTER 2018-03-26 17:38 | Inpatient (IN) | payer OTHER, BC ==
[~2018-03-26] VITALS: Ht 157.5 cm; Wt 77.1 kg
--- NOTE | ~2018-03-26 | D ---
[facility] [place] [address] DISCHARGE SUMMARY Name: SARAH GROVER Room #: 408-P ADM IN M.R.#: [id number] Admission: 03/26/18 Attend Phys: Jeannie Blanton MD Discharge: Date of : 46 Report #: [id number] THIS REPORT FOR: //name// CC: Lucien Blanton DATE OF SERVICE: 03/26/2018 FINAL DIAGNOSES: 1. Weakness. 2. Falls. 3. Multiple sclerosis. 4. Hypertension. 5. Osteoarthritis of the right knee. HOSPITAL COURSE: The patient was admitted after several falls at her assisted living facility. She could not manage there without therapy intervention. Medically, there were no real issues here. A urine culture, which is growing normal samuel. X-ray of the knee showed some arthritis, otherwise was unremarkable. DISPOSITION: She is being transferred to [facility] for inpatient rehabilitation under the care of Dr. Blanton. Diet and activity as tolerated, physical and occupational therapy. I have signed her transfer orders and medication list. By: 1633 16 Lucien Portillo MD /nt
--- NOTE | ~2018-03-26 | H ---
[facility] [place] [address] HISTORY AND PHYSICAL Name: SARAH GROVER Room #: 408-P ADM IN M.R.#: [id number] Admission: 03/26/18 Attend Phys: Jeannie Blanton MD Discharge: Date of : 46 Report #: [id number] THIS REPORT FOR: //name// CC: Lucien Blanton CHIEF COMPLAINT: Falls and weakness. HISTORY OF PRESENT ILLNESS: The patient is a 73-year-old female with a history of multiple sclerosis who was admitted to the Emergency Room with multiple falls. She has been living in an assisted living facility where she reports that they have requested she not get up without assistance. She said this therefore has caused her to lie in bed most of the days for the last several weeks. She said they have been attempting some physical therapy, but she did not feel it is "aggressive enough." She has had known multiple falls in the past, even when she was living alone as a result of MS, prior fractures of hip and ankle, and foot drop. In the past at home when she has had multiple falls, generally these have been without injury. At times when this cycle has persisted, she has required rehabilitation for strengthening and then to return home. Just a few months ago, she moved to an assisted living facility and sold her house for extra assistance, but it appears that she is having some difficulty adjusting to their requirements. PAST MEDICAL HISTORY: MS, hypertension, gait disturbance chronically with multiple falls chronically, diverticulosis. She has had recurrent UTIs, previous stroke in 2016 with mild right hemiparesis. PAST SURGICAL HISTORY: Right hip fracture, right ankle fracture, hysterectomy. FAMILY HISTORY: Noncontributory. SOCIAL HISTORY: She has been living in assisted living facility for about 4-5 months. She has limited family of a brother in town and I believe another sibling. No chronic alcohol or tobacco use. ALLERGIES: BACLOFEN, GABAPENTIN, HYDROCORTISONE, LIDOCAINE, METRONIDAZOLE, NAPROXEN, OXYBUTYNIN, PENICILLIN, LYRICA, SULFA. MEDICATIONS: Metoprolol, BuSpar, Claritin, aspirin, VESIcare, vitamin D, calcium, Lipitor, hydrocodone. REVIEW OF SYSTEMS: She denies headache, chest pain, shortness of breath, abdominal pain, nausea, vomiting, diarrhea, constipation, dysuria, or syncope. OBJECTIVE: VITAL SIGNS: O2 sat 92%, blood pressure 134/70, temperature 36.7, pulse 68, respirations 18. [address] [address] HISTORY AND PHYSICAL Name: SARAH GROVER Room #: 408-P [facility] IN .R.#: [id number] Admission: 03/26/18 Attend Phys: Jeannie Blanton MD Discharge: Date of : 46 Report #: [id number] GENERAL: She is awake and alert, in no distress. LUNGS: Clear. HEART: Regular. ABDOMEN: Soft, normoactive bowel sounds. EXTREMITIES: No edema. X-rays of right knee, hip and pelvis are unremarkable for acute fracture. ASSESSMENT: 1. Recurrent falls. 2. Gait disturbance. 3. Chronic right hemiparesis. 4. Right foot drop. 5. Multiple sclerosis, chronic. 6. Hypertension. 7. Impaired ADLs. PLAN: Obtain basic lab work to ensure there is no other medical issue here, but it appears this is just an exacerbation of her underlying condition. She needs acute rehabilitation in order to return to her assisted living facility. We will ask social work look into those options. <ELECTRONICALLY SIGNED> By: Lucien Portillo MD 03/28/18 1220 0928 1311 Lucien Portillo MD /nt
[~2018-03-26 17:38] MED LIST changes: +KEFLEX500 M1 PO
[2018-03-26 17:39] VITALS: BP 134/70
[2018-03-26 20:32] VITALS: BP 170/84
[2018-03-26 23:00] VITALS: BP 133/73
[2018-03-27 04:00] VITALS: BP 151/74
[2018-03-27 07:31] VITALS: BP 154/85
[2018-03-27 10:18] LABS: HEMATOCRIT 40.4 % (37.0-47.0); HEMOGLOBIN 13.6 gm/dL (12.0-15.0); MCH 30.2 pg (26.0-34.0); MCHC 33.7 g/dL (28.0-37.0); MCV 89.4 fL (80.0-100.0); RBC 4.51 mil/uL (4.20-5.00); RDW 15.2 % (10.5-14.5); WBC 9.7 thou/uL (4.0-11.0)
[2018-03-27 10:27] LABS: CALCIUM 9.2 mg/dL (8.5-10.1); CREATININE 1.1 mg/dL (0.6-1.0); POTASSIUM 4.2 mmol/L (3.5-5.1)
[2018-03-27 12:42] LABS: URINE BILIRUBIN NEGATIVE (Negative); URINE BLOOD NEGATIVE (Negative); URINE CLARITY CLOUDY; URINE COLOR YELLOW; URINE GLUCOSE-RANDOM* NEGATIVE (Negative); URINE KETONES NEGATIVE (Negative); URINE PROTEIN (DIPSTICK) NEGATIVE (Negative); URINE UROBILINOGEN 0.2 E.U./dl (0.2-1.0)
[2018-03-27 12:43] LABS: URINE LEUKOCYTES-REFLEX TRACE (Negative); URINE NITRITE-REFLEX POSITIVE (Negative)
[2018-03-27 12:45] LABS: SSA (PROTEIN CONFIRMATORY) NEGATIVE (Negative)
[2018-03-27 12:53] LABS: SQUAMOUS >10 Many /LPF (0-3)
[2018-03-27 12:54] LABS: CASTS None Seen /LPF (None Seen); URINE RBC None Seen /HPF (0-2)
[2018-03-27 12:55] LABS: BACTERIA-REFLEX >30 Many /HPF (None Seen); TRIPLE PHOSPHATE CRYSTALS 0-3 Few /LPF (None Seen)
[2018-03-27 12:56] LABS: AMORPHOUS PHOSPHATES Moderate /LPF (None Seen)
[2018-03-27 15:22] VITALS: BP 116/73
[2018-03-27 20:00] VITALS: BP 157/82
[2018-03-28 04:00] VITALS: BP 142/67
[2018-03-28 09:19] VITALS: BP 126/76
[2018-03-28 15:51] VITALS: BP 119/68
[2018-03-28] MEDS ORDERED: TUMS PO (16:29)
[2018-03-28] MEDS ORDERED: MOBIC7.5 M1 PO (16:29)
[2018-03-28] MEDS ORDERED: SERTRALINE HCL50 MG PO (16:29)
[2018-03-28] MEDS ORDERED: PEPCID20 MG PO (16:30)
== END 2018-03-28 18:45 | DRG 58 ==
LOC: ER 17:38 → 4N 20:42 → EROBS 22:30 → 4N 22:30
PROVIDERS: Internal Medicine Geriatric Medicine
DX: G35 Multiple sclerosis (principal); E43 Unspecified severe protein-calorie malnutrition; I69.951 Hemiplegia and hemiparesis following unspecified cerebrovascular disease affecting right dominant side; R29.6 Repeated falls; I10 Essential (primary) hypertension; E78.5 Hyperlipidemia, unspecified; K57.90 Diverticulosis of intestine, part unspecified, without perforation or abscess without bleeding; F41.9 Anxiety disorder, unspecified; F32.9 Major depressive disorder, single episode, unspecified; M17.11 Unilateral primary osteoarthritis, right knee; M21.371 Foot drop, right foot; Z68.31 Body mass index [BMI] 31.0-31.9, adult; Z98.42 Cataract extraction status, left eye; Z98.41 Cataract extraction status, right eye; Z90.710 Acquired absence of both cervix and uterus; Z88.0 Allergy status to penicillin; Z88.2 Allergy status to sulfonamides; Z88.8 Allergy status to other drugs, medicaments and biological substances
CPT/HCPCS: 10091

== ENCOUNTER 2018-08-22 09:14 | Emergency (ER) | payer OTHER, BC ==
[~2018-08-22] VITALS: Ht 157.5 cm; Wt 77.1 kg
--- NOTE | ~2018-08-22 | EKG ---
[place] [address] [facility] [place] [address] ELECTROCARDIOGRAM REPORT Name: SARAH GROVER [id number] Admission: 08/22/18 Attend Phys: Discharge: 08/22/18 Date of : 46 Report #: [id number] THIS REPORT FOR: //name// [facility] ED Test Date: 2018-08-22 Test Time: 09:24:39 Pat Name: SARAH GROVER Department: Room: Gender: F Rn Informatics: : 1945 Requested By: Rosa Isela Roque Order Number: [id number] MD: Андрей Fitzgerald Measurements Intervals [place] Rate: 56 P: 22 CA: 279 QRS: -50 QRSD: 87 T: 30 QT: 430 QTc: 416 Interpretive Statements Sinus bradycardia Prolonged CA interval Left anterior fascicular block Abnormal R-wave progression, late transition Compared to ECG 03/12/2018 11:41:31 No significant change was found Electronically Signed On 08-23-2018 8:43:12 CDT by Андрей Fitzgerald [email or web address] <ELECTRONICALLY SIGNED> By: Андрей Fitzgreald MD, [facility] 08/23/18 0843 3 3 Андрей Fitzgerald MD, [facility] /EPI
[~2018-08-22 09:14] MED LIST changes: +MOBIC7.5 M1 PO; +PEPCID20 MG PO; +SERTRALINE HCL50 MG PO
[2018-08-22 09:52] LABS: ABSOLUTE NEUTROPHILS 5.4 thou/uL (1.4-8.2); BASOPHILS 0.7 % (0.0-2.0); EOSINOPHILS 1.4 % (0.0-3.0); HEMATOCRIT 42.3 % (37.0-47.0); HEMOGLOBIN 14.7 gm/dL (12.0-15.0); LYMPHOCYTES 23.7 % (24.0-44.0); MCH 30.8 pg (26.0-34.0); MCHC 34.8 g/dL (28.0-37.0); MCV 88.4 fL (80.0-100.0); MONOCYTES 7.9 % (1.0-8.0); PLATELET COUNT 297 thou/uL (150-400); POLYS 66.3 % (36.0-66.0); RBC 4.78 mil/uL (4.20-5.00); WBC 8.1 thou/uL (4.0-11.0)
[2018-08-22 10:01] LABS: ANION GAP 9 mmol/L (7-16); BUN 16 mg/dL (7-18); CALCIUM 9.2 mg/dL (8.5-10.1); CHLORIDE 105 mmol/L (98-107); CO2 26 mmol/L (21-32); CREATININE 0.9 mg/dL (0.6-1.0); GLUCOSE 125 mg/dL (74-106); SODIUM 140 mmol/L (136-145)
[2018-08-22 10:08] LABS: ALBUMIN 3.4 g/dL (3.4-5.0); SGOT 20 U/L (15-37); SGPT 27 U/L (30-65); TOTAL BILIRUBIN 0.4 mg/dL (<0.1-1.0); TOTAL PROTEIN 7.5 g/dL (6.4-8.2); TROPONIN-I <0.06 ng/mL (<0.06)
[2018-08-22 10:28] LABS: URINE BILIRUBIN NEGATIVE (Negative); URINE BLOOD 1+ (Negative); URINE CLARITY CLOUDY; URINE COLOR YELLOW; URINE GLUCOSE-RANDOM* NEGATIVE (Negative); URINE KETONES NEGATIVE (Negative); URINE NITRITE-REFLEX NEGATIVE (Negative); URINE PROTEIN (DIPSTICK) NEGATIVE (Negative); URINE SPECIFIC GRAVITY 1.015 (1.005-1.035); URINE UROBILINOGEN 0.2 E.U./dl (0.2-1.0)
[2018-08-22 10:29] LABS: URINE LEUKOCYTES-REFLEX TRACE (Negative)
[2018-08-22 10:34] LABS: SQUAMOUS >10 Many /LPF (0-3)
[2018-08-22 10:35] LABS: CASTS None Seen /LPF (None Seen); CRYSTALS None Seen /LPF (None Seen); URINE RBC 3-10 Few /HPF (0-2)
[2018-08-22 10:36] LABS: BACTERIA-REFLEX >30 Many /HPF (None Seen); URINE WBC-REFLEX 6-15 Few /HPF (0-5)
[2018-08-22 11:07] LABS: URINE BILIRUBIN NEGATIVE (Negative); URINE BLOOD TRACE (Negative); URINE CLARITY SL CLOUDY; URINE COLOR YELLOW; URINE GLUCOSE-RANDOM* NEGATIVE (Negative); URINE KETONES NEGATIVE (Negative); URINE LEUKOCYTES-REFLEX NEGATIVE (Negative); URINE NITRITE-REFLEX NEGATIVE (Negative); URINE PROTEIN (DIPSTICK) NEGATIVE (Negative); URINE SPECIFIC GRAVITY 1.015 (1.005-1.035); URINE UROBILINOGEN 0.2 E.U./dl (0.2-1.0)
[2018-08-22 11:45] VITALS: BP 162/72
[2018-08-23] MEDS ORDERED: TOLTERODINE TART4 MG PO (19:57)
[2018-08-23] MEDS ORDERED: COLACE100 MG PO (19:57)
== END 2018-08-22 12:52 | disposition home or self-care (01) ==
LOC: ER 09:14
PROVIDERS: Physician Assistant
DX: G35 Multiple sclerosis (principal); R53.1 Weakness; I10 Essential (primary) hypertension; E78.5 Hyperlipidemia, unspecified; Z87.440 Personal history of urinary (tract) infections; Z88.0 Allergy status to penicillin; Z88.2 Allergy status to sulfonamides; Z88.8 Allergy status to other drugs, medicaments and biological substances

== ENCOUNTER 2018-08-23 15:05 | Inpatient (IN) | payer OTHER, BC ==
[~2018-08-23] VITALS: Ht 157.5 cm; Wt 75.6 kg
--- NOTE | ~2018-08-23 | H ---
[facility] [place] [address] HISTORY AND PHYSICAL Name: SARAH GROVER Room #: 423-1 ADM IN M.R.#: [id number] Admission: 08/23/18 Attend Phys: Jeannie Blanton MD Discharge: Date of : 46 Report #: [id number] THIS REPORT FOR: //name// CC: Lucien Blanton DATE OF SERVICE: 08/23/2018 CHIEF COMPLAINT: Weakness. HISTORY OF PRESENT ILLNESS: The patient is a 73-year-old female who came back to the Emergency Room now for the second time in a couple of days with weakness. She said she just cannot walk at home, felt weak in her legs. There has been no recent fall. She does live in an assisted living facility and they just were unable to manage her. She has had a long-standing history of multiple sclerosis. She has also had several fractures including right ankle and right hip fracture over the years that have contributed to gait dysfunction. PAST MEDICAL HISTORY: Urinary retention, recurrent UTIs, hypertension, MS, diverticulosis, right hip fracture, right ankle fracture, anxiety, history of stroke with right hemiparesis in 2016. PAST SURGICAL HISTORY: She has had hysterectomy, ankle fixation, hip fracture repair. FAMILY HISTORY: Noncontributory. SOCIAL HISTORY: She has been living at [facility] since approximately October of this year. No chronic alcohol or tobacco use. ALLERGIES: BACLOFEN, GABAPENTIN, HYDROCORTISONE, LIDOCAINE, METRONIDAZOLE, NAPROXEN, OXYBUTYNIN, PENICILLIN, PREGABALIN, SULFA. MEDICATIONS: Metoprolol, BuSpar, aspirin, Detrol, Colace, hydrocodone. REVIEW OF SYSTEMS: She just complains of weakness. Otherwise, no headache, chest pain, shortness of breath, abdominal pain, nausea, vomiting, diarrhea, constipation, dysuria, syncope. OBJECTIVE: VITAL SIGNS: Temperature 36.2, pulse 57, respirations 18, blood pressure 173/73, O2 sat 97% on room air. GENERAL: She is awake and alert, in no distress. HEAD AND NECK: Unremarkable. LUNGS: Clear. HEART: Regular. [facility] [address] [place] [address] HISTORY AND PHYSICAL Name: SARAH GROVER Room #: 423-1 ADM IN .R.#: [id number] Admission: 08/23/18 Attend Phys: Jeannie Blanton MD Discharge: Date of : 47 Report #: [id number] ABDOMEN: Soft, normoactive bowel sounds. EXTREMITIES: No edema. NEUROLOGIC: Global strength 3-4/5 throughout. DIAGNOSTIC STUDIES: Basic laboratory data was unremarkable including urinalysis. Chest x-ray negative. ASSESSMENT: 1. Multiple sclerosis. 2. Progressive weakness. 3. Acute urinary retention. 4. Neurogenic bladder. 5. Hypertension. PLAN: She has been admitted to rule out any medical history exacerbating her MS and to see if there is an MS exacerbation. Dr. Vu is assessing her currently. She will ultimately need rehab. For now, Mares catheter will be placed, but her Detrol will be discontinued, which may be contributing. She has had this urinary retention issue in the past with a Mares several years ago, but symptoms improved with time. Resume Flomax as well. <ELECTRONICALLY SIGNED> By: Lucien Portillo MD 08/24/18 1203 1101 1150 Lucien Portillo MD /nt
--- NOTE | ~2018-08-23 | D ---
[facility] [place] [address] DISCHARGE SUMMARY Name: SARAH GROVER Room #: 226-P [facility] IN M.R.#: [id number] Admission: 08/23/18 Attend Phys: Jeannie Blanton MD Discharge: 08/26/18 Date of : 46 Report #: [id number] THIS REPORT FOR: //name// CC: Lucien Blanton DATE OF SERVICE: 08/26/2018 FINAL DIAGNOSES: 1. Acute cerebrovascular accident. 2. Multiple sclerosis. 3. Hypertension. HOSPITAL COURSE: The patient was admitted with difficulty walking. Dr. Vu assessed her of Neurology and additional imaging was obtained with MRI of the head along with spine. These results suggested an acute infarct; however, she was well beyond the window of treatment opportunity and beyond global weakness, did not really seem to have a localizing symptom, was not clear that this was an MS exacerbation. She did have urinary retention as well which required the placement of a Mares catheter, although she has had this difficulty previously. She was treated medically and with no other invasive plans for treatment. DISPOSITION: To be transferred to [facility] under the care of Dr. Blanton. Mares catheter to remain with a voiding trial at a later date. New medicines are aspirin, Lipitor, and Flomax for now. <ELECTRONICALLY SIGNED> By: Lucien Portillo MD 08/29/18 1339 1237 03 Lucien Portillo MD /mateo
--- NOTE | ~2018-08-23 | EKG ---
[place] [address] [address] [place] [address] ELECTROCARDIOGRAM REPORT Name: SARAH GROVER Room #: 423-1 ADM IN M.R.#: [id number] Admission: 08/23/18 Attend Phys: Jeannie Blanton MD Discharge: Date of : 47 Report #: [id number] THIS REPORT FOR: //name// [facility] ED Test Date: 2018-08-23 Test Time: 16:13:33 Pat Name: SARAH GROVER Department: Room: [facility] Gender: F Marketing Executive: TAMICA : 1945 Requested By: Vaishali Plummer Order Number: [id number] MD: Андрей Fitzgerald Measurements Intervals [place] Rate: 61 P: 17 PA: 280 QRS: -54 QRSD: 91 T: 16 QT: 430 QTc: 433 Interpretive Statements Sinus rhythm Prolonged PA interval Left anterior fascicular block Abnormal R-wave progression, late transition Compared to ECG 08/22/2018 09:24:39 No significant change was found Electronically Signed On 08-24-2018 8:55:01 CDT by Андрей Fitzgerald [email or web address] <ELECTRONICALLY SIGNED> By: Андрей Fitzgerald MD, [facility] 08/24/18 0855 1613 1613 Андрей Fitzgerald MD, [facility] /EPI
--- NOTE | ~2018-08-23 | HC ---
[facility] [place] [address] CONSULTATION Name: SARAH GROVER Room #: 226-P ADM IN M.R.#: [id number] Admission: 08/23/18 Attend Phys: Jeannie Blanton MD Discharge: Date of : 46 Report #: [id number] THIS REPORT FOR: //name// CC: Lucien Blanton DATE OF SERVICE: 08/24/2018 HISTORY OF PRESENT ILLNESS: This is a 73-year-old female patient who was evaluated by me for a complicated history. She has records in the computer, which I reviewed. I talked to Dr. Portillo and talked to the patient. The patient is somewhat irritable. Whenever I ask her questions, she answers, but answers in an irritable fashion. The history I get is that she was diagnosed with multiple sclerosis in the early 1999s. The records indicate that she did have a spinal tap, which indicated one oligoclonal band but synthesis rate was high and that will be consistent with multiple sclerosis. I am not sure what the symptoms were at that time. Subsequently, she has been admitted with falls. She has cindy in the patient's right leg. She has increasing difficulty in walking and she is not happy with her living arrangement. As far as Neurology followup is concerned, looks like she has seen multiple neurologists over a period of time. She originally saw Dr. Montalvo, neurologist, at [facility] now and he may have been at [place] at that time. Then, she said she did not like Dr. Montalvo and then went to Dr. Liang, who is a neurologist at [facility]. Then, she did not like Dr. Liang and she went back to Dr. Montalvo. Subsequently, she again stopped going to Dr. Montalvo and then started going to Dr. Delgado at [facility]. She claims she never received any steroids. She said she was on some disease modifying treatment. It was a pill, but she does not know what the name of the pill was. She apparently stopped taking that sometime ago because of the financial reasons. She has not been back to Dr. Delgado at [facility] for at least 2 years because she indicates that is because of the transportation problem. Trying to get a history whether she still has relapsing-remitting MS or whether it has become secondary progressive is not clear. She does not give any straight forward answers and gets irritated with that, but she claims it is a relapse. She said she was doing well and then she had a relapse and then she started having difficulty with walking which has become worse. REVIEW OF SYSTEMS: Does indicate that she has fallen down multiple times and in fact was admitted here in March because of multiple falls. She does have a neurogenic bladder. She has a history of anxiety. Last time, her vitamin D was low. Sometime she gets edema of the lower extremities. Last time, her lipid profile was also abnormal and looks like she may have had a CVA in 2016. She does have a history of hypertension and cataracts. 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 She has a history of diverticulosis. This was her relevant 14-point review of system. PAST MEDICAL HISTORY: Positive for multiple sclerosis. FAMILY HISTORY: Negative for early age stroke. SOCIAL HISTORY: She denies the use of alcohol. PHYSICAL EXAMINATION: Indicate she is alert. She is responsive. She knows what month it is. She can name the president. 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 I could not look at the fundus. Blindness is not because of optic neuritis and because of retinal damage. She moves all 4 extremities. She has a brace in the right lower extremity. Reflexes do not appear to be hyper. Cardiac examinations appear noncontributory. No respiratory difficulty. She is moderately built individual. I cannot tell about the pulses. Blood pressure is 173/73, respirations 18, pulse is 63, temperature is 97.1. LABORATORY DATA: Her white count is 8. Last vitamin D was low, but sed rate was normal. IMPRESSION: 1. History of multiple sclerosis. According to the patient, it is relapsing or remitting, but she was not able to get treatment because of financial reasons and because she does not have any transportation to go to . 2. Dyslipidemia with question of stroke in the past. Her last dyslipidemia was pretty severe and she will be predisposed to stroke, which will be difficult to distinguish from MS on MRI. 3. Last vitamin D 12 was low and we need to recheck that. RECOMMENDATIONS: 1. My strong recommendation was that she should go to Dr. Delgado at because she is sub-specialized in multiple sclerosis and her case is pretty complicated and that will be the best place to go. 2. She still has relapsing-remitting MS. She needs to be on some disease modifying treatment. 3. It is very difficult to tell whether she has a relapse or not. One of the way may be to do an MRI since she did not have one. I discussed the procedure with her. I told that we will be giving contrast. I told her that there can be multiple side effects from the contrast including untreatable and severe dermatological problems. She understood that she wanted to proceed with MRI. Sometime the cindy can also get heated and cause problem and she understands it and she wants to proceed with that. 4. I think we will ask psychosocial rehabilitation counselor to look at her to see what arrangement can be made to see her, Dr. Delgado at [facility] [address] [place] [address] CONSULTATION Name: SARAH GROVER Room #: 226-P ADM IN ..#: [id number] Admission: 08/23/18 Attend Phys: Jeannie Blanton MD Discharge: Date of : 46 Report #: [id number] 5. If vitamin D is low that needs to be corrected. We need to get an exception process approved for checking vitamin D in this hospital and we will see if that can be done. More than 50 minutes of time was spent taking care of this patient today and majority of that time was spent counseling this patient and coordinating her care. <ELECTRONICALLY SIGNED> By: Riley Vu MD 08/25/18 1711 [id number] 50 Riley Vu MD /nt
[2018-08-23 15:10] VITALS: BP 152/77
[2018-08-23 16:02] LABS: URINE BILIRUBIN NEGATIVE (Negative); URINE BLOOD NEGATIVE (Negative); URINE CLARITY CLEAR; URINE COLOR YELLOW; URINE GLUCOSE-RANDOM* NEGATIVE (Negative); URINE KETONES NEGATIVE (Negative); URINE LEUKOCYTES-REFLEX NEGATIVE (Negative); URINE NITRITE-REFLEX NEGATIVE (Negative); URINE PROTEIN (DIPSTICK) NEGATIVE (Negative); URINE SPECIFIC GRAVITY 1.015 (1.005-1.035); URINE UROBILINOGEN 0.2 E.U./dl (0.2-1.0)
[2018-08-23 16:39] LABS: ABSOLUTE NEUTROPHILS 4.6 thou/uL (1.4-8.2); BASOPHILS 0.8 % (0.0-2.0); HEMATOCRIT 44.7 % (37.0-47.0); HEMOGLOBIN 15.3 gm/dL (12.0-15.0); LYMPHOCYTES 28.9 % (24.0-44.0); MCH 30.7 pg (26.0-34.0); MCHC 34.3 g/dL (28.0-37.0); MCV 89.6 fL (80.0-100.0); MONOCYTES 10.5 % (1.0-8.0); PLATELET COUNT 315 thou/uL (150-400); POLYS 57.8 % (36.0-66.0); RBC 4.99 mil/uL (4.20-5.00); RDW 15.6 % (10.5-14.5)
[2018-08-23 16:58] LABS: ANION GAP 13 mmol/L (7-16); BUN 18 mg/dL (7-18); CALCIUM 9.4 mg/dL (8.5-10.1); CHLORIDE 105 mmol/L (98-107); CO2 23 mmol/L (21-32); CREATININE 0.9 mg/dL (0.6-1.0); GLUCOSE 110 mg/dL (74-106); POTASSIUM 4.3 mmol/L (3.5-5.1); SODIUM 141 mmol/L (136-145)
[2018-08-23 17:09] LABS: ALBUMIN 3.5 g/dL (3.4-5.0); SGOT 26 U/L (15-37); SGPT 27 U/L (30-65); TOTAL BILIRUBIN 0.5 mg/dL (<0.1-1.0); TOTAL PROTEIN 7.6 g/dL (6.4-8.2); TROPONIN-I <0.06 ng/mL (<0.06)
[2018-08-23] MEDS ORDERED: TOLTERODINE TART4 MG PO (19:57)
[2018-08-23] MEDS ORDERED: COLACE100 MG PO (19:57)
[2018-08-23 20:28] VITALS: BP 197/91
[2018-08-23 21:29] VITALS: BP 191/82
[2018-08-24 04:12] VITALS: BP 180/86
[2018-08-24 08:15] VITALS: BP 173/73
[2018-08-24 10:54] VITALS: BP 173/73
[2018-08-24 19:50] VITALS: BP 190/92
[2018-08-25 08:18] VITALS: BP 129/65
[2018-08-25 10:09] LABS: CHOLESTEROL 276 mg/dL (<200); HDL CHOLESTEROL 47 mg/dL (>40); LDL CHOLESTEROL 195 mg/dL (<100); TC:HDL 5.9 Ratio (Not establshd); TRIGLYCERIDE 173 mg/dL (<150); VLDL 35 mg/dL (<40)
[2018-08-25 19:50] VITALS: BP 131/64
[2018-08-26] MEDS ORDERED: LIPITOR 20 MG T20 M1 PO (07:55)
[2018-08-26] MEDS ORDERED: AMLODIPINE BESYL5 M1 PO (07:55)
[2018-08-26] MEDS ORDERED: FLOMAX0.4 MG PO (07:55)
[2018-08-26] MEDS ORDERED: VITAMIN D1000 UNI1 PO (07:56)
[2018-08-26] MEDS ORDERED: COZAAR100 MG PO (07:56)
[2018-08-26 07:57] VITALS: BP 114/60
== END 2018-08-26 15:30 | DRG 65 ==
LOC: ER 15:05 → EROBS 18:43 → 4E 18:43 → SICU 08-24 18:49
PROVIDERS: Nurse Practitioner Family; Psychiatry & Neurology Neuromuscular Medicine
DX: I63.9 Cerebral infarction, unspecified (principal); I69.351 Hemiplegia and hemiparesis following cerebral infarction affecting right dominant side; G35 Multiple sclerosis; I10 Essential (primary) hypertension; K57.90 Diverticulosis of intestine, part unspecified, without perforation or abscess without bleeding; E78.5 Hyperlipidemia, unspecified; H54.40 Blindness, one eye, unspecified eye; F41.9 Anxiety disorder, unspecified; R33.9 Retention of urine, unspecified; N31.9 Neuromuscular dysfunction of bladder, unspecified; Z87.81 Personal history of (healed) traumatic fracture; Z90.710 Acquired absence of both cervix and uterus; Z98.42 Cataract extraction status, left eye; Z98.41 Cataract extraction status, right eye; Z79.82 Long term (current) use of aspirin; Z79.899 Other long term (current) drug therapy; Z88.1 Allergy status to other antibiotic agents; Z88.0 Allergy status to penicillin; Z88.2 Allergy status to sulfonamides; Z88.8 Allergy status to other drugs, medicaments and biological substances
CPT/HCPCS: 10084; 15000

== ENCOUNTER 2020-08-27 17:43 | Inpatient (IN) | payer OTHER, BC ==
[~2020-08-27] VITALS: Ht 157.5 cm; Wt 79.4 kg
[~2020-08-27 17:43] MED LIST changes: +AMLODIPINE BESYL5 M1 PO; +COZAAR100 MG PO; +LIPITOR 20 MG T20 M1 PO; +TOLTERODINE TART4 MG PO; +VITAMIN D1000 UNI1 PO
[2020-08-27 17:49] VITALS: BP 174/62
[2020-08-27 18:17] LABS: ABSOLUTE NEUTROPHILS 6.9 thou/uL (1.4-8.2); BASOPHILS 0.6 % (0.0-2.0); EOSINOPHILS 1.9 % (0.0-3.0); HEMATOCRIT 40.5 % (37.0-47.0); HEMOGLOBIN 13.9 gm/dL (12.0-15.0); LYMPHOCYTES 21.3 % (24.0-44.0); MCH 32.6 pg (26.0-34.0); MCHC 34.4 g/dL (28.0-37.0); MCV 94.6 fL (80.0-100.0); MONOCYTES 8.9 % (1.0-8.0); PLATELET COUNT 328 thou/uL (150-400); POLYS 67.3 % (36.0-66.0); RBC 4.28 mil/uL (4.20-5.00); RDW 13.9 % (10.5-14.5); WBC 10.2 thou/uL (4.0-11.0)
[2020-08-27 18:31] LABS: CALCIUM 9.2 mg/dL (8.5-10.1); CREATININE 1.1 mg/dL (0.6-1.0); POTASSIUM 4.2 mmol/L (3.5-5.1)
[2020-08-27 18:35] LABS: ALBUMIN 3.7 g/dL (3.4-5.0); TOTAL BILIRUBIN 0.5 mg/dL (0.2-1.0); TOTAL PROTEIN 8.7 g/dL (6.4-8.2)
[2020-08-27 19:30] LABS: URINE BILIRUBIN NEGATIVE (Negative); URINE BLOOD 2+ (Negative); URINE CLARITY CLOUDY; URINE COLOR YELLOW; URINE GLUCOSE-RANDOM* NEGATIVE (Negative); URINE KETONES NEGATIVE (Negative); URINE LEUKOCYTES-REFLEX 2+ (Negative); URINE NITRITE-REFLEX POSITIVE (Negative); URINE PROTEIN (DIPSTICK) NEGATIVE (Negative); URINE SPECIFIC GRAVITY 1.025 (1.005-1.035); URINE UROBILINOGEN 0.2 E.U./dl (0.2-1.0)
[2020-08-27 19:38] LABS: CASTS None Seen /LPF (None Seen); CRYSTALS None Seen /LPF (None Seen); MUCUS 0-3 Light strn/LPF (None Seen); SQUAMOUS 0-3 Few /LPF (0-3); URINE RBC >20 Many /HPF (0-2); URINE WBC-REFLEX >25 Many /HPF (0-5); WBC CLUMPS Packed (None Seen)
[2020-08-27] MEDS ORDERED: KEFLEX500 M1 PO (20:27)
--- NOTE | 2020-08-27 20:34 | NUR ---
REPORT PROVIDED TO TRUONG, SPECTROSCOPIST AT [facility]. D.O.Shira, TRUONG, WANTED TO INQUIRE ABOUT PATIENT AND WHY SHE IS RETURNING TO THE FACILITY. EXPRESSED FRUSTRATION THAT PATIENT IS OUTWARDLY AGGRESSIVE VERBALLY AND AT TIME PHYSICALLY WITH STAFF. INFORMATION PROVIDED THAT PATIENT IS OF SOUND MIND AND HER OWN D.P.O.A. AND WILL BE RETURNING TO HER ASSISTED LIVING. REFUSING PSYCH EVALUATION AND HAS DIAPLAYED ABSOLUTELY NO SELF-HARM BEHAVIORS. HAS CONTINUED TO BE VERBALLY AGRESSIVE TOWARDS HOSPITAL STAFF. IT SOUNDS LIKE THIS IS BASELINE BEHAVIOR. UTI POSIITVE AND ANITBIOTICS STARTED AND COVID TEST COMPLETED, BUT NO RESULTS AT THIS TIME. TRUONG, THE SPECTROSCOPIST, HAS REQUESTED THAT COVID RESULTS BE CALLED TO HER. D.O.N. [phone]
--- NOTE | 2020-08-27 20:55 | NUR ---
PATIENT NOW DECIDES THAT SHE WOULD LIKE TO STAY AND BE ADMITTED TO THE HOSPITAL FOR HER URINARY TRACT INFECTION. SHE STATES SHE WOULD LIKE TO NOT RETURN TO [facility]
[2020-08-27] MEDS ORDERED: LORATIDINE 10 M10 M1 PO (21:46)
[2020-08-27 22:04] VITALS: BP 109/44
[2020-08-27 22:05] VITALS: BP 124/44
[2020-08-27 22:30] VITALS: BP 114/56
[2020-08-28 06:08] LABS: HEMATOCRIT 38.7 % (37.0-47.0); HEMOGLOBIN 12.8 gm/dL (12.0-15.0); MCH 32.1 pg (26.0-34.0); MCHC 33.1 g/dL (28.0-37.0); MCV 96.8 fL (80.0-100.0); RDW 13.9 % (10.5-14.5); WBC 11.8 thou/uL (4.0-11.0)
[2020-08-28 06:17] LABS: CREATININE 0.9 mg/dL (0.6-1.0); POTASSIUM 4.4 mmol/L (3.5-5.1)
--- NOTE | 2020-08-28 06:33 | NUR ---
VSS-AFEBRILE. ALERT AND ORIENTED X 3-4, WITH SPORADIC CONFUSION AND AGGRESSION. YELLS AND PUSHES STAFF AWAY WHEN DOING ANY INTERVENTIONS OR PATIENT CARE. NO REPORTED N/V, C/O PAIN IN LEGS. PAIN WAS RELIEVED WELL WITH PO PAIN MEDICATION. VERY WEAK ON FEET, FALL PRECAUTIONS IN PLACE. RIGHT LEG BRACE AT BEDSIDE. REFUSED ANT TURNS. TWICE ATTEMPTED TO PULL OUT IV, DIFFICULT TO REDIRECT. FREQUENT MONITORING.
[2020-08-28 10:00] VITALS: BP 124/63
--- NOTE | 2020-08-28 13:50 | NUR ---
ASSUMED CARE OF PT AT 0700. PT IS A&OX2-3, VITAL SIGNS ARE STABLE. PT DENIES PAIN. PT REPORTED FEELING THE NEED TO URINATE BUT STATED SHE WAS UNABLE TO. PT HAD INCONTINENT EPISODE JUST PRIOR TO BLADDER SCAN IN AM, AND BLADDER SCAN INDICATED GREATER THAN 600ML. DR. JIM NOTIFIED OF RESULT AND ORDER OBTAIED TO PLACE CASAS CATHETER. 16FR 10CC CATHETER PLACED WITHOUT DIFFICULTY, 850ML RETURN FOLLOWING INSERTION. PT REFUSED TO SEE DR MCKEON THIS SHIFT AND STATES THAT SHE IS REFUSING TO SEE ANY [facility]ORS BESIDES DR GONZALEZ WHO SHE HAS SEEN HER PCP. PT IS AGGITATED AND VERBALLY AGRESSIVE TO STAFF, HAS MADE NO ATTEMPTS TO PHYSICALLY HARM SELF OR STAFF. IV TO RIGHT FOREARM FLUSHES APPROPRIATELY. FALL PRECAUTIONS IN PLACE AND NURSING WILL CONTINUE TO MONITOR.
[2020-08-28 14:37] VITALS: BP 116/65
--- NOTE | 2020-08-28 15:29 | NUR ---
PT ADMITTED RELATED TO UTI, WEAKNESS. CM REVIEWED CHART AND SPOKE WITH CARE TEAM. CM MET WITH PT AT BEDSIDE THIS DAY. CM ROLE INTRODUCED. PT INDICATED SHE RESIDES IN ASSISTED LIVING AT [facility]. SHE INDIATED THAT SHE USES A WC TO ASSIST WITH MOBILITY THERE AND THAT SHE HAD BEEN GETTING ASSISTANCE WITH ADLS AND TRANSFERS HEARING AID DISPENSER. SHE INDICATED SHE DOESN'T WANT TO RETURN TO THE FACILITY THEY "TREAT HER LIKE A BABY THERE." CM CONTIRMED THAT PT HAD BEEN TO [facility] IN THE PAST. PT'S PCP IS DR. TAY HUSAIN. PT STATED THAT SHE DOESN'T HAVE A DPOA (NO DPOA IN SCANNED IMAGES OR ON FILE AT [facility]). SHE STATED THAT SHE DIDN'T WANT HER BROTHER CONTACTED HE DOESN'T VIST HER. PT REFUSED HOSPITALIST VISIT AND DR. MCKEON CONSULT THIS DAY. PT IS ON IV ROCEPHIN AND HAS A CASAS CATHETER IN PLACE AT TIME OF NOTE. NO WEEKEND DC ANTICPATED. CM TO FOLLOW INDICATED WITH DC PLANNING.
[2020-08-28 20:08] VITALS: BP 126/68
--- NOTE | 2020-08-29 05:18 | NUR ---
ASSUMED PT'S CARE THIS PM SHIFT. PT ALERT AND ORIENTED. CONFUSION. SOME FORGETFULNESS. PT CAN BE VERY IRRITABLE AND AGGRESSIVE. FIGHTS STAFFING. SCRATCHED RN'S ARM. PT TOOK MOST MEDS. DECLINED STOOL SOFTNER. PT SLEFT OFF AND ON THIS SHIFT. CASAS IN PLACE. PT WAS REQUESTING TO BE GO HOME LAST NIGHT. NURSING INFORMED PT TO VOICE TO THE [facility] TODAY. FALL PRECAUTIONS IN PLACE. CALL LIGHT WITHIN REACH. WILL CONTINUE TO MONITOR.
[2020-08-29 08:49] VITALS: BP 145/73
--- NOTE | 2020-08-29 12:13 | NUR ---
ASSUMED CARE AT 0700 THIS MORNING. PT. REFUSING ALL PSYCH MEDICATIONS TODAY. (QUINTEPINE) ALSO REFUSED ATROVASTATIN CALCIUM AND LOSARTAN POTASSIUM THIS MORNING. SHE WOULD STAT, "I HAVE THE RIGHT TO REFUSE!" "I AM REFUSING". SHE IS TAKING THE REMAINDER OF HER MEDICATIONS WITHOUT PROBLEMS. SHE IS ANA CRISTINA AND SHARP WITH HER TONE OF VOICE AND ANSWERS. SHE KEPT ASKING WHEN SHE WOULD BE DISCHARGED FROM THE HOSPITAL. WAS COOPERATIVE WITH ASSESSMENT. NO ABNORMAL FINDINGS AT THAT TIME. SHE IS EATING WELL.
[2020-08-29 13:05] VITALS: BP 136/56
[2020-08-29 15:39] VITALS: BP 136/56
[2020-08-29 16:29] VITALS: BP 135/55
[2020-08-29 20:06] VITALS: BP 118/59
--- NOTE | 2020-08-30 04:53 | NUR ---
Assumed pt care at 1900. Pt's A/O3-4, very fussy/irritable on initial assessment and kept telling singer songwriter to "MYOB" Also stating she wants her own doctor she fired the ones here,pt informed that her PCP no longer comes here. Asking if she'll discharge today? Informed there's no plan to dc yet and had no further questions. Pyroglazer assisited pt undress and get settled in bed eventually w/o any problems. Mares patent draining yellow urine. Pt refused to be repositioned at night. Refused to take Seroquel/colace stating she don't need them. Resting quietly in bed w/o any distress noted,will continue to monitor pt. Fall precautions in place.
[2020-08-30 08:15] VITALS: BP 148/60
--- NOTE | 2020-08-30 14:32 | NUR ---
ASSUMED CARE AT 0700 TODAY. PT. IN BED. SHE COOPERATED WITH VITALS, MEDS AND ASSESSMENT. SHE CONTINUED TO REFUSE THE CHOLECALCIFEROL AND LORATADINE THIS AM. SHE STATED SHE DOES FEEL WELL TODAY SHE DID YESTERDAY. SHE PULLED OUT HER CASAS CATHETER OVER NIGHT. SHE WAS WET IN BED SEVERAL TIMES TODAY REQUIRING BED TO BE CHANGED. SHE WAS COOPERATIVE WITH THIS. SHE ATE FAIR TODAY. CALL PLACED TO DR. HERNÁN [facility] RETURNING WITH ESCHERICHA COLI > 100,000 CFU/ML GRAM NEGATIVE RODS ON 08/30/20.
[2020-08-30 16:56] VITALS: BP 139/63
[2020-08-30 19:27] VITALS: BP 122/54
--- NOTE | 2020-08-31 04:17 | NUR ---
ASSUMED PT CARE AROUND 1930. ALERT AND AWAKE. VERY CONFUSED. REFUSED ALL MEDS EXCEPT BP MEDS. REFUSED PHYSICAL ASSESSMENTS. NO S/S ACUTE DISTRESS NOTED OR REPORTED AT THIS TIME. WILL CONT TO MONITOR FOR ANY CHAANGES IN CONDITION.
[2020-08-31 07:45] VITALS: BP 148/67
[2020-08-31] MEDS ORDERED: CEFUROXIME250 MG PO (10:02)
[2020-08-31] MEDS ORDERED: SEROQUEL 25 MG25 M1 PO (10:03)
--- NOTE | 2020-08-31 12:41 | NUR ---
ASSUMED CARE OF PATIENT AT SHIFT CHANGE. ASSESSMENT COMPLETED TO BEST OF THIS NURSES ABILITY PATIENT REFUSED MOST CARES. PATIENT REFUSED ALL MEDS EXCEPT FOR "BLOOD PRESSURE MEDS AND THE BLADDER PILL". THIS NURSE ATTEMPTED TO EDUCATE PATIENT ON RISKS OF REFUSING MEDS BUT PATIENT REFUSED TO LISTEN. PT/OT ATTEMPTED TO WORK WITH PATIENT BUT DID NOT GET MUCH DONE SINCE SHE ALSO REFUSED THEIR CARES. PATIENT HAD A BM; OT ATTEMPTED TO CLEAN PATIENT BUT SHE REFUSED. PATIENT ALSO REFUSED THIS NURSES ATTEMPT TO CHANGE HER. PATIENT IS NON-COMPLIANT WITH CARES BUT DOES FEED SELF AND IS ABLE TO EAT MEALS. PATIENT DOES NOT COMPLY WITH STAYING IN BED; BED ALARM IS ON. FREQUENT CHECKS COMPLETE ON THIS PATIENT. WILL CONTINUE TO MONITOR AND FOLLOW PLAN OF CARE.
--- NOTE | 2020-08-31 16:17 | NUR ---
CARE TEAM INDICATED THAT PT IS TO DISCHARGE TO [facility] THIS DAY LONG HER COVID TEST RESULTS BY TECHNOLOGY APPLICATIONS CONSULTANT. PT IS TO BE BROUGHT UP INVOLUNTARILARLY UNDER A HOLD. DR. MCKEON HAS AFFIDAVIT ON THE CHART. CM TO NOTIFY BONNIE ADAMS. NO OTHER CM INTERVENTION INDICATED. CASE CLOSED.
--- NOTE | 2020-08-31 19:17 | NUR ---
I AGREE WITH NURSING ASSESSMENT AND NURSING NOTE DONE BY ALIYAH/HOIST MECHANIC.
[2020-08-31 20:00] VITALS: BP 147/66
--- NOTE | 2020-08-31 23:35 | NUR ---
PT ALERT, CONFUSED. REFUSED ASSESSMENT AND MEDICATIONS EXCEPT FOR BP MED. INCONT OF URINE IN LARGE AMT. INITIALLY REFUSED TO BE CLEANED UP BUT THEN DID ALLOW VENEER MARKER TO CHANGE HER. TRANSFERRED TO ROOM 528A VIA W/C WITH PERSONAL BELONGINGS. REPORT CALLED TO WALTER JOHNSON.
== END 2020-08-31 23:47 | DRG 64 ==
LOC: ER 17:43 → EROBS 20:57 → 4W 20:57
PROVIDERS: Nurse Practitioner Family; Physician Assistant; ADMIT Hospitalist; ATTEND Hospitalist
DX: I63.9 Cerebral infarction, unspecified (principal); G92 Toxic encephalopathy; G81.91 Hemiplegia, unspecified affecting right dominant side; N39.0 Urinary tract infection, site not specified; G35 Multiple sclerosis; E78.5 Hyperlipidemia, unspecified; I10 Essential (primary) hypertension; F32.9 Major depressive disorder, single episode, unspecified; N31.2 Flaccid neuropathic bladder, not elsewhere classified; F39 Unspecified mood [affective] disorder; K57.90 Diverticulosis of intestine, part unspecified, without perforation or abscess without bleeding; F41.9 Anxiety disorder, unspecified; Z20.828 Contact with and (suspected) exposure to other viral communicable diseases; Z79.82 Long term (current) use of aspirin; Z98.42 Cataract extraction status, left eye; Z98.41 Cataract extraction status, right eye; Z90.710 Acquired absence of both cervix and uterus; Z79.899 Other long term (current) drug therapy; Z88.5 Allergy status to narcotic agent; Z88.0 Allergy status to penicillin; Z88.2 Allergy status to sulfonamides; Z88.8 Allergy status to other drugs, medicaments and biological substances
CPT/HCPCS: 10040

== ENCOUNTER 2020-08-31 22:55 | Inpatient (IN) | payer OTHER, BC ==
[~2020-08-31] VITALS: Ht 157.5 cm; Wt 71.4 kg
[~2020-08-31 22:55] MED LIST changes: +CEFUROXIME250 MG PO; +LORATIDINE 10 M10 M1 PO; +SEROQUEL 25 MG25 M1 PO
[2020-08-31 23:25] VITALS: BP 115/70
--- NOTE | 2020-09-01 00:25 | NUR ---
PATIENT ADMITTED TO [facility] FROM [facility]. SHE TRANSFERRED BY WHEEL CHAIR. SHE IS A/0X 2. SHE HAS A AFO STEEL BRACE ON RIGHT LEG. SHE STATES SHE HAD CVA AUGUST 2019. PATIENT VERY WEAK AND UNSTEADY ON FEET. PATIENT IS DELUSIONAL AND AGITATED. SHE REFUSES TO TAKE ANY MEDS EXCEPT FOR HER BP MEDS. SHE WILL NOT LET GO OF HER PURSE AND HAD TO PULL HER BAGGED BELONGINGS FROM HER SHE TRIED TO HOLD ON TO THEM. PATIENT IS NOT A HAPPY PATIENT. SHE IS PARANOID AND INSISTS ON SITTING UP IN THE DINING ROOM IN HER WC CLUTCHING HER PURSE. WHEN QUESTION ASKED WHEN WAS HER LAST BM SHE STATES, "NOYB" (NONE OF YOUR BUSINESS.) SHE STILL REFUSED WHEN I EXPLAINED WHY WE NEEDED THAT INFORMATION. PATIENT REFUSED ANY FOOD OR DRINK WHEN OFFERED. SHE STATES SHE'S GLAD TO BE ON SB BECAUSE SHE STATES ON THE 4TH FLOOR THE NURSES WERE PERFORMING ABORTIONS AND THE MALE DOCTOR KEPT TRYING TO HAVE SEX WITH HER. PATIENT STATES SHE IS FROM [facility] BUT WANTS TO LIVE AT [facility]. SHE DID SIGN CONSENTS ON HER OWN. NO DPOA NOTED. PATIENT'S VSS. 115/70 P65 R17 TEMP 97.8 0298%. LUNGS DIMINISHED BILATERALLY BUT CTA. ABDOMEN SOFT NONTENDER. RIGHT KNEE LARGER THAN LEFT. OLD BRUISING ON RIGHT FOREARM FROM BEFORE SHE WAS ADMITTED TO HOSPITAL. PATIENT IS DEMANDING. COLLEEN EARLY NP NOTIFIED FOR DR HORN'S [facility]. COVID PCR TEST NEGATIVE FROM 08/31/20. PATIENT IS INCONTINENT. MAXIMUM ASSIST X 2. PATIENT SITTING UP IN WC. PATIENT IS FALL RISK. WILL CONTINUE TO MONITOR.
--- NOTE | 2020-09-01 02:46 | NUR ---
PATIENT COMBATIVE AND YELLING AT NURSE'S WHEN TRYING TO HELP HER. SWINGING HER HANDS AT PEOPLE. YELLING HELP AND VERY AGITATED. DEMANDING AND CALLING PEOPLE STUPID. CALLED DR HAYDEN AND HE ORDERED GEODON 15MG IM STAT. PITCH FLAKER, CHOPPER OPERATOR ASSISTED THIS NURSE WHEN GIVING INJECTION D/T PT COMBATIVE. PATIENT ANGRY AND YELLING AT SECURITY AND ACCUSING THEM OF BRUISING HER ARM WHICH WAS ALREADY BRUISED. PATIENT IN BED WITH SIDERAILS UP X 4 D/T HIGH FALL RISK. PATIENT BANGING ON BED AND SIDE RAIL. CONSTANT MONITORING OF PATIENT FROM HALLWAY FOR SAFETY. BED IN LOW POSITION AND BED ALARM IS ON.
[2020-09-01 07:19] VITALS: BP 148/76
--- NOTE | 2020-09-01 11:52 | NUR ---
Patient is up with 2 assist in w/c. Flat affect but speech is clear. Pt refuses antipsycotic meds this am. Feeds self,eats 80%. Pt states she is happy to be able to go to [facility] when DC here "so that I can walk again" Pt has hx of falls and is a fall risk. bed and chair alarm on.Patient takes tylenol at 1120am for back and leg pain.Reminds this nurse that she wants her B/P med at noon. Attends group this am and dr William to see patient.Pt has brace on to right ankle. Lungs clear bilat and no cough or shortness of breath noted.
[2020-09-01 12:02] VITALS: BP 148/76
[2020-09-01 19:41] VITALS: BP 120/68
[2020-09-01 20:38] LABS: HEMATOCRIT 42.6 % (37.0-47.0); MCH 32.1 pg (26.0-34.0); MCHC 32.9 g/dL (28.0-37.0); MCV 97.5 fL (80.0-100.0); RBC 4.37 mil/uL (4.20-5.00); RDW 14.4 % (10.5-14.5); WBC 11.1 thou/uL (4.0-11.0)
[2020-09-01 20:42] LABS: CALCIUM 9.1 mg/dL (8.5-10.1); CREATININE 1.1 mg/dL (0.6-1.0); POTASSIUM 4.1 mmol/L (3.5-5.1)
--- NOTE | 2020-09-02 04:52 | NUR ---
09-01-20 CARE TRANSFERRED 1899 OBSERVED PT SITTING IN W/C IN DAY ROOM WATCHING TV. 1939 PT AAOX2, VSS, RR EVEN AND NONLABORED ON RA. PT REPORTS LOWER BACK PAIN AND SCALES AT 8 ON 0-10 SCALE. PT DENIES SI/HI. PT PRESENTED SUSPICIOUS BUT REMAINED COOPERATIVE THROUGHOUT NURSING ASSESSMENT DURING MEDICATION ADMIN PT REFUSED SOFT SOFTNER AND SEROQUEL PT STATED I HAVE NEVER TAKEN THOSE MEDICATON AND I COULD GET HIVES, I AM VERY SENSITIVE TO MEDICATION. PT PRESENTED PARANOID ABOUT TRYING ANY NEW MEDICATION. ASSISTED PT WITH REMOVAL OF BRACE AND COMPRESSION SOCKS, TRACE EDEMA BLE NOTED. PT BED WAS ADJUSTED FOR COMFORT. ZERO S/S OF ACUTE DISTRESS NOTED, PT WILL CONTINUE TO BE MONITOR PER [facility] PROTOCOL.
[2020-09-02 07:46] VITALS: BP 145/65
--- NOTE | 2020-09-02 09:41 | H ---
[facility] [place] [address] HISTORY AND PHYSICAL Name: SARAH GROVER Room #: 528A-A ADM IN M.R.#: [id number] Admission: 08/31/20 Attend Phys: Rayo William DO Discharge: Date of : 46 Report #: [id number] THIS REPORT FOR: cc: Lucien Portillo MD,Rayo Gerber MD, DO ~ CC: Rayo Portillo DATE OF SERVICE: 09/01/2020 INPATIENT PSYCHIATRIC EVALUATION ATTENDING PHYSICIAN: Rayo William DO. PAPER TESTER: Dr. Corbin. REASON FOR ADMISSION: Agitation and refusal of some care as the patient was initially admitted to the medical floor at [facility] under Dr. Hill's care. CHIEF COMPLAINT: "How long would I need to be here?" HISTORY OF PRESENT ILLNESS: This is a 75-year-old female who was initially admitted to the [facility] a few days back on 08/27/2020. At that time, she had presented for evaluation of aggressive behaviors. She had been increasingly verbal, aggressive with staff, not been taking her meds, had been refusing showers. The patient states she has COVID because "she just knows." She did not have any known exposures and her antigen and PCR was negative. PAST MEDICAL HISTORY: Her medical history is complicated with multiple sclerosis diagnosed in 2001. 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 She has diverticulosis, hiatal hernia, neurogenic bladder, sinus problems. Also borderline diabetes. PAST SURGICAL HISTORY: Includes bilateral cataract removal, right ankle fracture x 2 with excision. Also, additional surgery, right hip fracture, status post open reduction and internal fixation in 05/2016. REPORTED MEDICATIONS: Metoprolol 50 mg p.o. b.i.d., buspirone 10 mg p.o. b.i.d., aspirin 81 mg chewable daily, docusate 100 mg p.o. at bedtime. ALLERGIES: As follows: ALOE VERA, BACLOFEN, BAND-AIDS, GABAPENTIN, HYDROCORTISONE, LIDOCAINE, METRONIDAZOLE, NAPROXEN, OXYBUTYNIN, PENICILLINS, PREGABALIN, SULFA. [address] [address] HISTORY AND PHYSICAL Name: SARAH GROVER Room #: 528A-A [facility] IN ..#: [id number] Admission: 08/31/20 Attend Phys: Rayo William DO Discharge: Date of : 46 Report #: [id number] SOCIAL HISTORY: Denied alcohol, tobacco or recreational drug use. REVIEW OF SYSTEMS: The patient was not cooperative with a 10-point review of systems: Even when I would not touch her, like touched the wheel of her wheelchair, she would state it was causing her pain. She only permitted a limited exam by Dr. Corbin, the hospitalist today. Weight 79.38 kilos. I believe she is underweight well, says it was 28.8 BMI. Height 127.48 cm. LABORATORY DATA: Laboratories from 08/28: White blood cell count 11.8, H and H 12.8 and 38.7, platelet count 288, differential generally normal. Chemistries from this admission include sodium 142, potassium 4.4, chloride 105, bicarbonate 25, anion gap 12, BUN 20, creatinine 0.9, estimated GFR 61, glucose 122, calcium 9.0. AST 24, ALT 26, alkaline phosphatase 98. No recent B12 level, last one noted was in 2012 with 598. Vitamin D in 01/2018, 7.9. TSH 0.8; last one noted was 0.866 in 01/2018. Urinalysis on this admission was positive for blood, nitrites, 2+ leukocyte esterase, numerous white blood cells. Microbiology from this admission at culture, E. coli, which was mostly sensitive and resistant to ampicillin, Unasyn, looks like there were 2 strings of E. coli. PHYSICAL EXAMINATION: VITAL SIGNS: Temperature 36.8, pulse 53, respirations 16, BP 148/70, O2 sat 100%. The patient does not have a DPOA. I spoke with her brother, Stephen, who has not seen her in 6 months. Her PCP is Dr. Chisholm. She is living in an assisted living at [facility]. Dr. Chisholm reports he is concerned about an evolving dementia and substance abuse psychosis. She complains frequently, but then states she does not want to help or complaints about it when people try to help her. MUSCULOSKELETAL: AFO in her right leg, wheelchair bound. MENTAL STATUS EXAMINATION: This is a well-developed, ill-appearing, glass wearing unkempt who is slightly dirty-appearing female with long hair. Hair was not groomed well. Attention fair. Concentration limited. Speech is normal rate. Thought process: Linear and goal oriented. Thought content: Relative poverty of thought. Mood was dysphoric, irritable, angry, restricted, congruent. Denied SI or HI. Denied auditory, visual, or tactile hallucinations. Memory was not formally tested today due to her irritability, but suspecting impairment. Insight impaired, judgment impaired. Fund of knowledge, no greater than average. FORMULATION: A 75-year-old female brought to [facility], initially admitted for UTI, now discharged and admitted to Geriatric Psychiatry. She did sign in voluntarily. [facility] [address] [place] [address] HISTORY AND PHYSICAL Name: SARAH GROVER Room #: 528A-A ADM IN M.R.#: [id number] Admission: 08/31/20 Attend Phys: Rayo William, DO Discharge: Date of : 46 Report #: [id number] DIAGNOSES: At this time would be unspecified psychosis, rule out major neurocognitive disorder due likely to multiple sclerosis, cerebrovascular disease, or Alzheimer's disease. Other morbidities of attention at this point include neurogenic bladder, hypertension, history of cerebrovascular disease, history of urinary incontinence. PLAN: Evaluate, stabilize, obtain collateral, admit to the Geriatric Psychiatry. Hospitalist consulted. Continue antibiotics, cefuroxime axetil 250 mg p.o. b.i.d. duration to be determined by hospitalist. Also, continue metoprolol 50 mg p.o. b.i.d. with pulse parameters, tamsulosin 0.4 mg p.o. daily for urinary incontinence, amlodipine 5 mg p.o. daily for hypertension, Seroquel was increased to 25 mg three times a day, docusate 100 mg at bedtime and MiraLax 17 grams daily. I think we will probably see how she does with that bowel regimen for now as she is slowly getting it on the medical floor. ESTIMATED LENGTH OF STAY: 10-14 days. She is voluntary at this time. We will assess for dementia. We will check her B12, vitamin D. PT and OT were consulted who has somebody come and do evaluation of living skills. STRENGTHS: She is insured. She has been in assisted living placement. WEAKNESSES: Advancing in age, possible neurodegenerative disorder, poor coping skills. <ELECTRONICALLY SIGNED> By: Rayo William DO 09/02/20 0941 [id number] Rayo William, /nt
--- NOTE | 2020-09-02 11:51 | NUR ---
KYRIE contacted [facility] to obtain information on how pt is paying for stay there; this is because pt may be in need of a higher level of care. She scored a 09/17 on her SLUMS. SW team will continue to follow pt during her stay on this unit.
--- NOTE | 2020-09-02 11:51 | NUR ---
Patient participated in 09 recreation group this date. She provided full participation, however became irritated and disruptive during wrap up discussion. Patient asked why she was not able to go outside. It was explained to her that d/t unit policy and the unit being a locked unit, patient is to stay on the [facility] unit. Samantha was unaccepting of this and began yelling that she wanted to leave and has "rights" to go outside. After multiple attempts of redirection, she was told that she would need to leave the group d/t disrupting the group. She yelled, "do not touch me, do not touch me!" Staff explained to her that only her wheelchair would be touched, in an effort to move her away from the group. During this interaction, patient began waving her water cup around-- soaking the floor, fellow patient, and typewriter assembler. When another patient told her to stop she did and immediately became remorseful and apologetic.
--- NOTE | 2020-09-02 13:21 | NUR ---
Accepted patient from 7p-7a shift. ASSISTED PT UP TO DRESS AND ENC PT TO DO WHAT SHE CAN FOR HERSELF. QUICKLY IRRITATED WITH STAFF-"DO NOT CALL ME AMIRAH CALL ME MRS GROVER" right leg brace on along with knee hi teds. depends on. is in dayroom to eat breakfast in w/c. CONTINUES TO BE IN DAYROOM FOR AM GROUP WHERE SHE GOT IRRITATED WITH THERAPY STAFF AND THROUGH WATER ON HER. BUT SHE QUICKLY APPOLOGIZED FOR HER ACTIONS. REFUSED PSYCH MEDS THIS AM BUT WOULD TAKE B/P MED, BUT IT IS HELD FOR LOW B/P THIS AM. DR HAYDEN HERE TO DO A SLUMS TEST WHICH SHE COOPERATED IN.
[2020-09-02 14:04] VITALS: BP 145/65
[2020-09-02 19:59] VITALS: BP 126/78
--- NOTE | 2020-09-03 05:10 | NUR ---
09-02-20 CARE TRANSFERRED 1899, 1919 PT SITTING IN W/C IN ROOM PT REPORTS PAIN IN LOWER BACK AND SCORES AT 8 ON 0-10 SCALE, AAOX2, VSS, RR EVEN AND NONLABORED ON RA. PT DENIES SI/HI, PT PRESENTS ANGREY AND AGITATED AND REPORTS SHE DOES NOT KNOW WHY SHE CANNOT HAVE TYLENOL EXTRA STRENGTH. HCP WAS CONSULTED AND ORDERS RECEIVED FOR EXTRA STRENGTH TYLENOL. DURING MEDICATION ADMIN PT WAS AGITATED ABOUT MEETING AND WAS COMBATIVE DURING MEDICATION ADMIN, BUT DID COMPLY WITH TAKING MEDICATION. PT LATER THREW WATER CUP TO FLOOR, CLEAN UP AND ASKED IF PT WOULD LIKE TO BE ASSISTED INTO BED. PT REPORTED SHE JUST WANTED TO STAY IN HER W/C AT THIS TIME. PT WAS OFFERED ASSISTED TO BE ABLE ASSISTED TO BED, PT STATED THE BED HURTS HER BACK. ZERO S/S OF ACUTE DISTRESS NOTED, PT WILL CONTINUE TO BE MONITOR PER [facility] PROTOCOL.
[2020-09-03 07:40] VITALS: BP 163/72
[2020-09-03 09:57] VITALS: BP 162/72
[2020-09-03 11:34] VITALS: BP 138/76
--- NOTE | 2020-09-03 11:54 | NUR ---
1150 RESUMMED CARE FROM OVERNIGHT SHIFT THIS AM, PATIENT IN DAY ROOM QUIET. PATIENT ATE BREAKFAST AND TRIED TO GIVE ME A HARD TIME ABOUT TAKING HER MEDICATION. I EXPLAINED TO PATIENT THAT IF SHE IS REFUSING TO TAKE HER MEDICATION SHE WILL GET A IM. SHE THEN TOOK MEDICATION AND DR HAYDEN CAME AND SPOKE WITH PATIENT ABOUT BEING MED COMPLIANT. PATIENT IS ORIENTED TO SELF AND PLACE HER ABDOMEN IS SOFT ROUND. BOWEL SOUNDS PRESENT LUNGS CLEAR PATIENT COMPLAINS A LOT. PATIENT DENIES SI/HI/AH/VH AT PRESENT, PT CAME TO WORK WITH PATIENT SHE WAS COMPLIANT WITH THEM. WILL CONTINUE TO MONITOR PATIENT FOR SAFETY AND BEHAVIORS.
--- NOTE | 2020-09-03 16:48 | NUR ---
KYRIE contacted [facility] and spoke to Holley. KYRIE asked her how pt was funding her stay there. Holley said she has Medicare and BCBS. KYRIE explained that cannot be her funding sources for assisted living. Holley then tried to transfer SW to the DON. KYRIE explained the DON would not have that info, but billing would. Holley tranferred her to human resources who never answered. SW team will continue to follow pt during her stay on this unit.
[2020-09-03 19:00] VITALS: BP 118/55
[2020-09-03 21:05] LABS: SYPHILIS AB Non Reactive (Non Reactive)
--- NOTE | 2020-09-03 21:57 | NUR ---
Care assumed of patient at 1915: Patient resting in bed at start of shift. Patient answers to name being called. Patient refuses to answer other orientation questions. Patient refuses to answer questions regarding depression and anxiety. Patient did deny SI/HI. Also reported back pain. Provided PRN Tylenol. Patient yelling for nurse to get out of her room, "you don't belong here, it's an invasion of my privacy!". Patient oriented to nursing staff and being in the hospital. Yelling "I don't care, women don't take care of me!". Patient declined HS snack. Provided HS medication. Patient educated on medication ordered. Patient refused Colace then attempted to refuse all medications. Patient took a couple pills then took the pill cup and threw it across her bed. Pills were collected and provided back to patient. Patient notified that she will need to take the rest of her pills or a shot will need to be provided. Patient then willingly took pills. Offered toileting. Patient stated it was "inappropriate" for another female to assist her with toileting. No incontinent episode observed. No physical aggression observed. Primarily verbal aggression and agitation. Patient resting quietly in bed at this time.
[2020-09-04 09:04] VITALS: BP 158/80
--- NOTE | 2020-09-04 17:32 | NUR ---
PATIENT CARE ASSUMED AT 0700 - PATIENT CAN BE IRRITABLE AND SNAPPY WITH STAFF. APOLOGETIC AT TIMES - STATES ALWAYS IN PAIN AND CONTRIBUTES TO HER ATTITUDE. WILL TRY TO FIND EXCUSE NOT TO TAKE HER ANTIPSYCHOTIC MEDICATIONS BUT COMPLIANT WHEN ADVISED IM ORDERED BY PHYSICIAN. PATIENT ABLE TO FEED ONESELF. TWO PERSON ASSIST TO TRANSFER FROM CHAIR TO BED AND ASSIST WITH VOIDING. PATIENT TAKES MEDICAITONS WHOLE. DENIES ANY S/I OR H/I - TYLENOL GIVEN PRN TO AID WITH LOWER LEG DISCOMFORT AND LOWER BACK. SCHEDULED FOR D/C ON MONDAY. HAS BEEN UP AND DOWN FOR MEALS AND ASSISTED BACK TO BED - REFUSED TO GET UP FOR DINNER - STATED NOT HUNGRY AND LOWER LEGS HURT TOO MUCH TO GET UP.
[2020-09-04 19:09] VITALS: BP 136/76
--- NOTE | 2020-09-05 05:15 | NUR ---
Assumed care of pt @ 1900. Pt calm et cooperative this shift. Took medications whole without difficulty. Unable to assess ambulation as pt remained bedfast this shift. VSWNL. Health assessment with no abnormalities other than previously noted. Isolated in room most of shift. Denies SI/HI/AVH at present time. Currently resting in bed with eyes closed. Will continue to monitor per unit protocol.
--- NOTE | 2020-09-05 12:05 | NUR ---
DEMANDING AND VERBALLY ABUSIVE WITH NURSING STAFF-CALLING NURSING STAFF STUPID AND STATING "YOU NEED TO READ MY CHART-I SHOULDN'T HAVE TO ANSWER YOUR QUESTIONS" PICKING AND CHOOSING WHICH MEDS SHE WOULD LIKE TO TAKE AT 0900 MED PASS-ANGRY THAT PRN TYLENOL WAS NOT WITH AM MEDS AND INSISTING THAT IT WAS SCHEDULED STATING "YOU NEED TO DOUBLE CHECK YOUR FACTS BEFORE YOU TALK TO YOUR PT" TYLENOL 1000MG GIVEN PO PRN FOR BACK/NECK/LEG PAIN RATES A 6 ON 1/10 SCALE. SLEEPING IN WC WHEN REAPPROACHED FOR REASSESSMENT WHEN QUESTIONED STATES "IT HASN.T HELPED MUCH" ASKING MULTIPLE STAFF MEMBERS TO REPOSITION LEGS ON FOOT PEDALS OF WC-THIS WAS COMPLETED SEVERAL TIMES BUT PT STATES "YOU ARE MAKING IT WORSE-I SHOULD KNOW BETTER THAN TO ASK FOR HELP HERE" OFFERED TO PLACE IN RECLINER CHAIR BY 2 STAFF AND STATES "I CAN'T SIT IN A RECLINER" DOCTOR NOTIFIED OF REPORTS OF PAIN UNRELIEVED BY TYLENOL. COMBATIVE WITH INCONTINENT CARE THIS AM. DID TAKE SEROQUEL WHEN INFORMED IT WOULD BE ADMINISTERED IM IF PO REFUSED STATING "I GUESS I AM BEING FORCED AND THAT IS ILLEGAL"REQUIRES ASSIST OF 2 TO TRANSER TO AND FROM BED.
[2020-09-05 20:20] VITALS: BP 152/84
--- NOTE | 2020-09-06 05:23 | NUR ---
Assumed care of pt @ 1900. Pt calm et cooperative this shift. Took medications whole without difficulty. Unable to assess ambulation as pt remained bedfast during this shift. Isolated in room most of shift. VSWNL. Health assessment with no abnormalities noted at present time. Denies SI/HI/AVH at present time. Currently resting in bed with eyes closed. Will continue to monitor per unit protocol.
[2020-09-06 08:40] VITALS: BP 134/59
--- NOTE | 2020-09-06 08:42 | NUR ---
PT SITTING IN DINING ROOM. PT WANTED TO KNOW ABOUT HER MEDS SHE IS TAKING. PT NEEDED ASSISTANCE WITH GETTING UP IN W/C AND NEEDED BRACE TO RT FOOT FROM MS. PT STATED SHE DOES HAVE PAIN TO LOWER EXT. PT HAS HX OF NEUROPATHY TO FEET. PT IN W/C.
[2020-09-06 08:46] VITALS: BP 149/68
--- NOTE | 2020-09-06 15:52 | NUR ---
ADM TYLENOL 500MG 2 TABS PO FOR PAIN TO FEET OF 5, PT STATED SHE HAS BURNING FEELING TO FEET.
--- NOTE | 2020-09-06 16:06 | NUR ---
GIVING PT HER TYLENOL SHE ASKED WHAT THAT OTHER PILL WAS, HEATHER SAID IT WAS TO HELP WITH HER THINKING, SHE SAID WELL THEY DON'T HAVE TO GIVE ME A SCRIPT FOR THAT WHEN I LEAVE. SITTING WITH PT SHE IS VERY HYPERVERBAL AND TALKS ALOT, ASKS THIS ACCOUNT EXECUTIVE AGRIBUSINESS IF SHE IS BOTHERING ME, SAID NO SHE WAS NOT.
--- NOTE | 2020-09-06 16:30 | NUR ---
PT ALLOWED THIS NURSE TO TAKE OFF OLD FINGER NAIL UPPER SORBIAN. NO ISSUES WITH AGGRESSION WITH STAFF.
[2020-09-06 19:21] VITALS: BP 104/59
--- NOTE | 2020-09-07 03:58 | NUR ---
09-06-20 CARE TRANSFERRED 1899 OBSERVED PT SITTING IN WHEELCHAIR IN HALLWAY. 192 PT AAOX3, VSS, RR EVEN AND NONLABORED ON RA, PT REPORTS PAIN IN HEAD AND SCALES 7 OON 0-10 SCALE. PT DENIES SI/HI. PT CALM, COOPERATIVE AND VERY TALKATIVE. PT REPORTED SHE WOULD LIKE TO GO TO BED EARLIER BECAUSE SHE IS LEAVING TOMMORROW AND REQUESTED HER MEDICATION. PT HAD NO DIFFICULTIES WITH MEDICATION AND PT WAS ASSISTED INTO BED AND COMPRESSION SOCKS REMOVED. PT BED WAS ADJUSTED FOR COMFORT. ZERO S/S OF ACUTE DISTRESS NOTED, PT WILL CONTINUE TO BE MONITOR PER [facility] PROTOCOL.
--- NOTE | 2020-09-07 10:52 | NUR ---
KYRIE spoke with Lenka in admission at [facility]. KYRIE informed Lenka of Pt's pending discharge and also the recommendation for memory care. KYRIE also informed that Pt will need a guardian due to not having a DPOA. Lenka informed she would let her team know this infomation. D/C set for 09/08 @1400. [facility] will provide transportation
--- NOTE | 2020-09-07 11:01 | NUR ---
RT Progress Note- Samantha has been an active participant in both the milieu and recreation groups since admission. During the first few days of admission, she displayed agitation and irritability during social interactions. Samantha' social tolerance has improved and she has been able to provide constructive participation. She attends all groups and often offers ideas of leisure that she would like to continue upon discharge. Recreation therapists will continue to provide leisure opportunities and groups to further improve coping skills and social tolerance.
--- NOTE | 2020-09-07 11:09 | NUR ---
Faxed updates to [facility]
--- NOTE | 2020-09-07 11:44 | NUR ---
Nutrition: pt admit with unspecified psychosis, major neurocognitive disorder. Seen due to wound indication on nsg screen however no wounds are documented. Kris score 16. UBW appears to be around 175#. Last weight taken 157#. Unsure of accuracy, request new weight. Pt intake is suboptimal averaging < 50% of meals. Pt unwilling to provide food preferences or take supplements for RD-strongly dislikes. Encouraged pt to order meals as desired when offered by nsg in the am. Pt states "I know!". Appeared irritated at RD visit. Noted pt will D/C tomorrow. Follow nutritional parameters.
[2020-09-07 12:44] VITALS: BP 137/78
--- NOTE | 2020-09-07 15:46 | NUR ---
1545 RESUMMED CARE FROM OVERNIGHT SHIFT THIS AM, PATIENT IN ROOM SLEEPING. I WOKE PATIENT UP HELPED HER GET READY FOR BREAKFAST. PATIENT ATE BREAKFAST TOOK MEDICATION WITHOUT INCIDENCE, SHE LIKES TO KNOW WHAT MEDICATION SHE IS TAKING. PATIENTS ABDOMEN SOFT ROUND BOWEL SOUNDS PRESENT LUNGS CLEAR PATIENT DENIES SI/HI/AH/VH AT PRESENT. PATIENT IS ORIENTED TO SELF PLACE YEAR FORGOT DATE, PATIENT INTERACTS WITH OTHER PATIENTS. PATIENT HAS NOT DISPLAYED ANY BEHAVIORS WILL CONTINUE TO MONITOR PATIENT FOR SAFETY AND BEHAVIORS.
[2020-09-07 19:15] VITALS: BP 114/60
[2020-09-07 22:33] VITALS: BP 114/60
--- NOTE | 2020-09-08 04:10 | NUR ---
Assumed care of patient this pm shift. Patient somewhat irritable. Patient denies hi/si. Patient takes medications whole with thin fluids. Patient ambulates via wheelchair. Falls precautions in place. Patients affect is blunted. Patients assessment shows no signs of acute distress. Vital signs are stable. We will continue to monitor per hospital policy.
[2020-09-08 07:50] VITALS: BP 135/73
[2020-09-08 11:21] VITALS: BP 135/73
[2020-09-08] MEDS ORDERED: FLOMAX0.4 MG PO (12:04)
[2020-09-08] MEDS ORDERED: MIRALAX17 GM PO (12:06)
[2020-09-08] MEDS ORDERED: SEROQUEL 100 M100 M1 PO (12:06)
[2020-09-08] MEDS ORDERED: VITAMIN D325 MC1 PO (12:07)
--- NOTE | 2020-09-08 15:50 | NUR ---
1445-PT DISCHARGED TO [facility]. PT LEAVES UNIT WITH HER OWN COPY OF DC NOTES AND NH HERE TO PET SUPPLIES SALESPERSON PT TO RETURN TO NH.ATTEMPTED TO CALL REPORT TO NH AND MESSAGE LEFT FOR THEM TO RETURN CALL IF NECESSARY.
--- NOTE | 2020-09-09 20:54 | D ---
[facility] [place] [address] DISCHARGE SUMMARY Name: SARAH GROVER Room #: 528A-A [facility] IN M.R.#: [id number] Admission: 08/31/20 Attend Phys: Rayo William DO Discharge: 09/08/20 Date of : 47 Report #: [id number] THIS REPORT FOR: cc: Lucien Portillo MD, David W. MD Kerstein, Andrew H. DO ~ CC: Rayo Portillo DATE OF SERVICE: 09/08/2020 INPATIENT PSYCHIATRIC DISCHARGE SUMMARY ATTENDING PSYCHIATRIST: Rayo William DO SYSTEMS MECHANIC: Genna Hill MD DISCHARGE DIAGNOSES: Major neurocognitive disorder, likely due to Alzheimer's disease with behavioral disturbance, improved; unspecified psychosis, improved. Medical comorbidities are as follows: Hypertension, hyperlipidemia, history of CVA, multiple sclerosis, wears a right AFO. The patient is discharging to [facility]. Psychiatric and medical care to be provided by receiving facility. Dr. Merino had been patient pcp prior to admission DISCHARGE MEDICATIONS: Metoprolol tartrate 50 mg p.o. b.i.d., hold if pulse less than 60 for hypertension and prevention of SVT, aspirin 81 mg oral daily for hypertension; docusate 100 mg p.o., bedtime bowel motility; atorvastatin 20 mg p.o. daily, hyperlipidemia; amlodipine 5 mg p.o. daily, hold if blood pressure less than 100 systolic, for hypertension; losartan 100 mg p.o. daily for hypertension, loratadine 10 mg p.o. daily, tamsulosin 0.4 mg p.o. daily for urinary incontinence, Seroquel 100 mg p.o. 3 times a day for psychosis and mood stabilization, MiraLax 17 g p.o. daily for bowel motility, hold if diarrhea, vitamin D3 5000 international units p.o. daily. The patient's laboratories are significant this admission. Hematology: CBC: White count 11.1, H and H 14.0 and 42.6, platelet count 353. Chemistry: Sodium 138, potassium 4.1, chloride 102, bicarbonate 22, anion gap 14, BUN 26, creatinine 1.1, estimated GFR 49, glucose 184, calcium 9.1. Vitamin B12 598. Total vitamin D low at 14.6. COVID-19 PCR serology was negative. Syphilis serology was nonreactive. IMAGING: There was a brain MRI from 08/2018 that showed an unremarkable MR of [address] [address] DISCHARGE SUMMARY Name: SARAH GROVER Room #: 528A-A [facility] IN [facility]#: [id number] Admission: 08/31/20 Attend Phys: Rayo William, Discharge: 09/08/20 Date of : 47 Report #: [id number] the [place]. There was central brain atrophy noted at that time. It looks like there is a separate head MRI, which showed acute infarct involving the right basal ganglia, posterior lateral, seen under the cruz radiata and there was a periventricular signal change consistent with history of demyelinating disease. There was 2 species E. coli UTI detected this admission, it was treated with cefuroxime 14 doses. REASON FOR ADMISSION: Back on or so August, a 75-year-old female initially admitted to the Medical Unit. She has been increasingly verbal, aggressive with staff, not been taking her meds. Hospital course: She was initially admitted, I believe, under 96-hour hold and then was found her brother was her DPOA, who signed her in. The patient had poor insight into her dementia, was wanting to live elsewhere, and it was explained, she has to return to [facility]. Seroquel was titrated to 100mg three times a day during stay/ She was less irriatble than early on as final 3-4 days of stay achieved. She became more pleasant with this prospect. At the day of discharge, she was not suicidal or homicidal and felt to be stable for step down. VITAL SIGNS: On the day of discharge are as follows: Temperature 36.3, pulse 85, respirations 14, BP 135/73, O2 sat 96%. MUSCULOSKELETAL: Abnormal gait, wears right Ankle [place] [employer], mainly wheelchair bound. MENTAL STATUS EXAMINATION: This is a well-developed, older than age-appearing female. Attention limited. Concentration limited. Speech is normal rate. Thought process is linear and goal directed. Thought content, often paranoid ideations, like when answering questions, none of your business. It has lessened as the Seroquel was increased throughout the hospitalization. Denied SI or HI. Denied auditory, visual, or tactile hallucinations. Memory, formally tested and has gross impairments. Insight limited. Judgment impaired. Fund of knowledge well below average. mood/affect- constricted, congruent PROGNOSIS: For this patient is guarded due to multiple morbidities, post-stroke, having MS, age of 75, having a neurodegenerative disorder. <ELECTRONICALLY SIGNED> By: Rayo William, 09/09/202053 11 56 Rayo William, DO /nt
== END 2020-09-08 14:35 | DRG 57 ==
LOC: SBH 22:55
PROVIDERS: Hospitalist; ADMIT Psychiatry & Neurology Psychiatry; ATTEND Psychiatry & Neurology Psychiatry
DX: G30.9 Alzheimer's disease, unspecified (principal); F02.81 Dementia in other diseases classified elsewhere, unspecified severity, with behavioral disturbance; N17.9 Acute kidney failure, unspecified; F01.51 Vascular dementia, unspecified severity, with behavioral disturbance; F23 Brief psychotic disorder; I10 Essential (primary) hypertension; E78.5 Hyperlipidemia, unspecified; G35 Multiple sclerosis; K57.90 Diverticulosis of intestine, part unspecified, without perforation or abscess without bleeding; Z20.828 Contact with and (suspected) exposure to other viral communicable diseases; Z88.2 Allergy status to sulfonamides; Z88.0 Allergy status to penicillin; Z86.73 Personal history of transient ischemic attack (TIA), and cerebral infarction without residual deficits; Z99.3 Dependence on wheelchair; Z98.42 Cataract extraction status, left eye; Z98.41 Cataract extraction status, right eye; Z88.8 Allergy status to other drugs, medicaments and biological substances
CPT/HCPCS: 10880

== ENCOUNTER 2020-10-04 16:38 | Emergency (ER) | payer OTHER, BC ==
[~2020-10-04] VITALS: Ht 157.5 cm; Wt 70.3 kg
[~2020-10-04 16:38] MED LIST changes: +SEROQUEL 100 M100 M1 PO; +VITAMIN D325 MC1 PO
[2020-10-04 17:01] LABS: URINE BILIRUBIN NEGATIVE (Negative); URINE BLOOD TRACE (Negative); URINE CLARITY SL CLOUDY; URINE COLOR YELLOW; URINE GLUCOSE-RANDOM* NEGATIVE (Negative); URINE KETONES 1+ (Negative); URINE NITRITE-REFLEX NEGATIVE (Negative); URINE PROTEIN (DIPSTICK) NEGATIVE (Negative); URINE SPECIFIC GRAVITY 1.025 (1.005-1.035); URINE UROBILINOGEN 0.2 E.U./dl (0.2-1.0)
[2020-10-04 17:02] LABS: HEMATOCRIT 42.3 % (37.0-47.0); MCH 31.5 pg (26.0-34.0); MCHC 33.2 g/dL (28.0-37.0); MCV 95.1 fL (80.0-100.0); PLATELET COUNT 346 thou/uL (150-400); RBC 4.44 mil/uL (4.20-5.00); RDW 13.5 % (10.5-14.5); WBC 22.7 thou/uL (4.0-11.0)
[2020-10-04 17:03] LABS: URINE LEUKOCYTES-REFLEX 2+ (Negative)
[2020-10-04 17:14] LABS: SQUAMOUS >10 Many /LPF (0-3)
[2020-10-04 17:15] LABS: CASTS None Seen /LPF (None Seen); CRYSTALS None Seen /LPF (None Seen); YEAST-REFLEX Present (None Seen)
[2020-10-04 17:16] LABS: CALCIUM 10.1 mg/dL (8.5-10.1); CREATININE 1.1 mg/dL (0.6-1.0); POTASSIUM 3.9 mmol/L (3.5-5.1)
[2020-10-04 17:16] LABS: BACTERIA-REFLEX None Seen /HPF (None Seen); URINE RBC 3-10 Few /HPF (0-2)
[2020-10-04 17:22] LABS: ALBUMIN 3.4 g/dL (3.4-5.0); TOTAL BILIRUBIN 0.7 mg/dL (0.2-1.0); TOTAL PROTEIN 8.3 g/dL (6.4-8.2)
[2020-10-04 17:30] LABS: ABSOLUTE NEUTROPHILS 20.4 thou/uL (1.4-8.2); ANISOCYTOSIS 1+
[2020-10-04 17:31] LABS: POLYCHROMASIA OCCASIONAL
[2020-10-04 18:53] LABS: MAGNESIUM 2.2 mg/dL (1.8-2.4); TROPONIN-I <0.06 ng/mL (<0.06)
[2020-10-04] MEDS ORDERED: ONDANSETRON ODT8 MG PO (20:45)
[2020-10-04] MEDS ORDERED: PROTONIX40 MG PO (20:45)
[2020-10-04] MEDS ORDERED: KEFLEX500 M1 PO (20:49)
[2020-10-04 22:36] VITALS: BP 127/63
--- NOTE | 2020-10-05 07:23 | EKG ---
[facility] [address] [place] [address] ELECTROCARDIOGRAM REPORT Name: SARAH GROVER Room #: DEP BECKY Maya#: [id number] Admission: 10/04/20 Attend Phys: Discharge: 10/04/20 Date of : 47 Report #: [id number] <ELECTRONICALLY SIGNED> By: Андрей Fitzgerald MD, FACC 10/05/20 0723 1704 1704 Андрей Fitzgerald MD, FACC /EPI
== END 2020-10-04 23:02 ==
LOC: ER 16:38
PROVIDERS: Emergency Medicine
DX: N39.0 Urinary tract infection, site not specified (principal); K59.00 Constipation, unspecified; R11.2 Nausea with vomiting, unspecified; D72.829 Elevated white blood cell count, unspecified; I12.9 Hypertensive chronic kidney disease with stage 1 through stage 4 chronic kidney disease, or unspecified chronic kidney disease; N18.9 Chronic kidney disease, unspecified; Z86.73 Personal history of transient ischemic attack (TIA), and cerebral infarction without residual deficits; Z88.0 Allergy status to penicillin; Z88.2 Allergy status to sulfonamides; Z88.8 Allergy status to other drugs, medicaments and biological substances
CPT/HCPCS: 27000

== ENCOUNTER 2020-10-07 09:37 | Emergency (ER) | payer OTHER, BC ==
[~2020-10-07] VITALS: Ht 157.5 cm; Wt 65.8 kg
[~2020-10-07 09:37] MED LIST changes: +ONDANSETRON ODT8 MG PO; +PROTONIX40 MG PO
[2020-10-07 11:28] LABS: ABSOLUTE NEUTROPHILS 9.6 thou/uL (1.4-8.2); BASOPHILS 0.4 % (0.0-2.0); EOSINOPHILS 0.8 % (0.0-3.0); HEMATOCRIT 34.1 % (37.0-47.0); LYMPHOCYTES 9.9 % (24.0-44.0); MCH 31.4 pg (26.0-34.0); MCHC 33.1 g/dL (28.0-37.0); MCV 94.9 fL (80.0-100.0); MONOCYTES 7.1 % (1.0-8.0); PLATELET COUNT 341 thou/uL (150-400); POLYS 81.8 % (36.0-66.0); RBC 3.59 mil/uL (4.20-5.00); RDW 13.7 % (10.5-14.5); WBC 11.8 thou/uL (4.0-11.0)
[2020-10-07 11:29] LABS: HEMOGLOBIN 11.3 gm/dL (12.0-15.0)
[2020-10-07 11:39] LABS: CALCIUM 9.6 mg/dL (8.5-10.1); POTASSIUM 3.8 mmol/L (3.5-5.1)
[2020-10-07 11:46] LABS: ALBUMIN 3.2 g/dL (3.4-5.0); TOTAL BILIRUBIN 0.5 mg/dL (0.2-1.0); TOTAL PROTEIN 7.6 g/dL (6.4-8.2)
[2020-10-07] MEDS ORDERED: SOLIFENACIN SUC10 MG PO (12:01)
[2020-10-07] MEDS ORDERED: BUSPIRONE HCL10 MG PO (12:02)
[2020-10-07 12:04] LABS: URINE BILIRUBIN NEGATIVE (Negative); URINE BLOOD 3+ (Negative); URINE COLOR YELLOW; URINE GLUCOSE-RANDOM* NEGATIVE (Negative); URINE KETONES NEGATIVE (Negative); URINE NITRITE-REFLEX NEGATIVE (Negative); URINE PROTEIN (DIPSTICK) NEGATIVE (Negative); URINE SPECIFIC GRAVITY 1.015 (1.005-1.035); URINE UROBILINOGEN 0.2 E.U./dl (0.2-1.0)
[2020-10-07 12:09] LABS: URINE CLARITY HAZY; URINE LEUKOCYTES-REFLEX 2+ (Negative)
[2020-10-07 12:17] LABS: CASTS None Seen /LPF (None Seen); SQUAMOUS 4-10 Moderate /LPF (0-3); URINE WBC-REFLEX >25 Many /HPF (0-5)
[2020-10-07 12:18] LABS: BACTERIA-REFLEX 1-9 Few /HPF (None Seen); CRYSTALS None Seen /LPF (None Seen); URINE RBC 0-2 Rare /HPF (0-2); WBC CLUMPS Few (None Seen); YEAST-REFLEX Present (None Seen)
[2020-10-07] MEDS ORDERED: KEFLEX500 M2 PO (14:19)
[2020-10-07] MEDS ORDERED: ZOFRAN ODT4 MG PO (14:19)
[2020-10-07 15:15] VITALS: BP 156/74
--- NOTE | 2020-10-07 15:39 | EKG ---
[place] [address] [facility] [employer] [place] [address] ELECTROCARDIOGRAM REPORT Name: SARAH GROVER Room #: REG Zulma#: [id number] Admission: 10/07/20 Attend Phys: Discharge: Date of : 47 Report #: [id number] [facility] ED Test Date: 2020-10-07 Test Time: 11:08:54 Pat Name: SARAH GROVER Department: Room: Gender: F Advertising Designer: souleymane : 1945 Requested By: Darren Knapp Order Number: [id number] MD: Chino Lu Measurements Intervals [place] Rate: 66 P: 0 VT: 232 QRS: -22 QRSD: 114 T: 26 QT: 427 QTc: 448 Interpretive Statements Sinus rhythm Prolonged VT interval Low voltage, extremity and precordial leads Compared to ECG 10/04/2020 17:04:58 Low QRS voltage now present Left anterior fascicular block no longer present Electronically Signed On 10-07-2020 15:39:33 GENETIC COORDINATOR by Chino Lu [email or web address] <ELECTRONICALLY SIGNED> By: Chino Lu MD, [facility] 10/07/20 1539 D: 12/1107 07 Chino Lu MD, FACC /EPI
== END 2020-10-07 16:19 | disposition home or self-care (01) ==
LOC: ER 09:37
PROVIDERS: Emergency Medicine
DX: R11.0 Nausea (principal); R10.84 Generalized abdominal pain; I10 Essential (primary) hypertension; Z79.82 Long term (current) use of aspirin; Z79.899 Other long term (current) drug therapy; Z88.0 Allergy status to penicillin; Z88.2 Allergy status to sulfonamides; Z88.8 Allergy status to other drugs, medicaments and biological substances; Z88.6 Allergy status to analgesic agent; Z86.73 Personal history of transient ischemic attack (TIA), and cerebral infarction without residual deficits

== ENCOUNTER 2020-11-09 11:09 | Inpatient (IN) | payer OTHER ==
[~2020-11-09] VITALS: Ht 157.5 cm; Wt 68.0 kg
[~2020-11-09 11:09] MED LIST changes: +KEFLEX500 M2 PO; +SOLIFENACIN SUC10 MG PO
[2020-11-09 11:13] VITALS: BP 111/68
[2020-11-09 13:25] LABS: ABSOLUTE NEUTROPHILS 11.1 thou/uL (1.4-8.2); BASOPHILS 0.4 % (0.0-2.0); EOSINOPHILS 1.2 % (0.0-3.0); HEMATOCRIT 39.6 % (37.0-47.0); LYMPHOCYTES 13.8 % (24.0-44.0); MCH 31.1 pg (26.0-34.0); MCHC 32.8 g/dL (28.0-37.0); MONOCYTES 6.7 % (1.0-8.0); PLATELET COUNT 363 thou/uL (150-400); POLYS 77.9 % (36.0-66.0); RBC 4.17 mil/uL (4.20-5.00); RDW 15.1 % (10.5-14.5); WBC 14.2 thou/uL (4.0-11.0)
[2020-11-09 13:31] LABS: CALCIUM 9.9 mg/dL (8.5-10.1); CREATININE 1.2 mg/dL (0.6-1.0); POTASSIUM 3.6 mmol/L (3.5-5.1)
[2020-11-09 13:38] LABS: ALBUMIN 3.4 g/dL (3.4-5.0); TOTAL BILIRUBIN 0.5 mg/dL (0.2-1.0); TOTAL PROTEIN 8.2 g/dL (6.4-8.2)
--- NOTE | 2020-11-09 16:58 | NUR ---
75-year-old female presenting to the ER with sacral wound as well as sore throat. States that the symptoms started about 1 week ago. Caregiver noticed the wound had begun bleeding with a malodorous discharge. Notably the patient is wheelchair bout. The caregiver stated the patient has had one dose of the COVD vaccine as her facility of [facility] but did not indicate a date. COVID PCR in ED NEGATIVE. The ED records shows the patient to be A&O x4. The patient has been admitted to Dr. Angel with unstageable decubitus ulcer, SHELBY, oral juanita and sepsis. Per the ED record the patient's son Stephen Woodward at [phone] is listed as the next of kin and democrat of notification. Notably patient had discharged from [facility] on 09-08-2020 to her [facility] of [facility] from [address] [place] [address]. CM will follow for discharge needs.
[2020-11-09 17:57] VITALS: BP 127/58
[2020-11-09 20:03] VITALS: BP 101/52
[2020-11-09 20:22] VITALS: BP 105/62
--- NOTE | 2020-11-09 20:45 | NUR ---
Pt. arrived to the unit from the emergency room accompanied by staff. She is alert and oriented with some forgetfulness. Oriented to room and staff. Bed alarm is on.
[2020-11-09 20:46] VITALS: BP 110/55
--- NOTE | 2020-11-09 23:58 | NUR ---
Pt. resting quietly in bed. Admission assessment and history is completed. Pt. can be irritable at times. She refused her hs meds. Pictures taken of sacral wound and right gluteus. Pt. yelled out when turning her on her side. Explained the importance of being repositioned. Bed alarm is on.
[2020-11-10 05:40] VITALS: BP 126/70
[2020-11-10 07:30] VITALS: BP 120/77
--- NOTE | 2020-11-10 07:48 | NUR ---
DR. MARADIAGA HERE TO SEE PT FOR EVAL. OF POSS. I AND D OF WOUND ON COCCYX. SHE SAID YOU ARE HURTING ME, THIS GEOPHYSICAL MANAGER JUST TAKING GOWN OUT FROM UNDER HER. SHE DIDN'T WANT TO BE TURNED FOR WOUND TO BE SEEN, WOUND COVERED WITH WET TO DRY DRESSING. SHE KNOWS HER NAME, WHERE SHE IS, THE PRESIDENT AND MONTH. SHE SAID NOYB- NONE OF YOUR BUISNESS WHEN ASKING A QUESTION. SHE SAID SHE ISN'T GOING TO CONSENT TO ANY SURGERY TO THIS GEOPHYSICAL MANAGER.
--- NOTE | 2020-11-10 08:36 | NUR ---
PT LEFT FOR SURGERY AT THIS TIME VIA BED.
--- NOTE | 2020-11-10 09:30 | NUR ---
PT BACK FROM SURGERY, PT REFUSED TO HAVE I AND D STATING SHE WAS TRICKED TO SIGNING CONSENT PAPERS. OT WORKING WITH PT AT THIS TIME. PT YELLS YOUR HURTING ME WITH ANY TACTILE STIMULATION. PT RECIEVED TYLENOL 1000MG IN PRE-OP. PT HAS RT LE AFO ON AT THIS TIME. PT WANTS SHOES LEFT ON FOR HER FEET COMFORT.
--- NOTE | 2020-11-10 09:57 | NUR ---
PT TOOK AM MEDS WITHOUT ANY ISSUES. PT EATING YOGART AT THIS TIME AND DRINKING WATER. PT REFUSED APPLE JUICE. PT RT AC IV IS LEAKING AFTER VS TAKEN TO RT ARM. WILL ASSESS IV SITE.
--- NOTE | 2020-11-10 11:39 | NUR ---
IV SITE TO RT AC IS FLUSHING WITHOUT LEAKING. CALLED DR. FUENTES FOR TELE D/C ORDER AND ALSO PT CAN BE SL.
--- NOTE | 2020-11-10 15:38 | NUR ---
ADM TYLENOL 325MG 2 TABS PO FOR PAIN ALL OVER OF 8 ON 1-10 SCALE.
--- NOTE | 2020-11-10 15:51 | NUR ---
Case opened to follow for dc planning. Chart reviewed and case discussed with the care team. Manager Customer spoke with the director of the [facility] at [facility] where the pt resides as well as with the pt at bedside. Pt known to cm from previous admissions as well as [facility] stay in Aug 2020. The pt is alert and oriented x 3 this afternoon. She reports that she is not sure she wants to go back to and was open to discussing her options. SNF referral discussed as pt will need therapy, wound care and iv atb. She is interested in [facility] or [facility]. She may want to consider ltc private pay as well. The pt is known to suffer from schizophrenia and has a hx of difficulty with decision making and non compliance with cares. She was here previously and refused surgical debridement of her wound after agreeing to proceed. This happened again today after signing consents and visiting with the sx and staff. The pt is on ivatb and PT/OT evals are in progress. VV indicates the pt is noncompliant and will only allow cares when their WOOD CASKET ASSEMBLER Adelita is on duty. The pt can transfer with sba/min a x1 once her brace is on. They feel SNF would be benefical for the pt vs returning direclty to the [facility] level of care. They are open to her returning pending her wishes. The pt does not have a dpoa and states that her brother Aniceto is . VV indicates he is not . They report the pt is paranoid at times and believes people want to take her money. The pt has been on service with [facility] for wound care. All in favor of SNF stay at [facility]. Pt encouraged to participate in therapy and consider debridement of her wound to promote healing. The pt reports she got the fist covid vaccine at . Adelita will be working at on and available to talk with the pt for support and encouragement. Dc network planner to fax referrals to [facility] and [facility]. Will follow.
--- NOTE | 2020-11-10 16:27 | NUR ---
FAXED REFERRAL TO [facility] SPOKE WITH GIANFRANCO IN ADM SHE RECEIVED REFERRAL AND WILL REVIEW. FAXED REFERRAL TO [facility] RECEIVED CONFIRMATION LEFT MSG WITH POLLY IN ADM.
--- NOTE | 2020-11-10 17:44 | NUR ---
PT CLEANED UP OF INCON. OF URINE. PT YELLING AT STAFF TO NOT TOUCH HER AND THAT THE STAFF IS HURTING HER. PT SAID SHE WASN'T OFFERED A BED FERMIN, TOLD PT SHE NEEDED TO LET US KNOW IF SHE NEEDS TO VOID. PT DRESSING SATURATED AND CHANGED WITH STERILE ABD PAD AND PAPER TAPE. PT STATED SHE IS ALLERGIC TO ADHESIVE, TOOK OFF TELE PATCHES. PT STATED SHE IS ITCHING TO UPPER RT ARM AND WANTED CREAM. SKIN SEEMS DRY AND NO REDDNESS NOTED. PT STATED SHE IS ALLERGIC TO ALOE ALSO. PUR WICK SYSTEM PLACED FOR INCON. PT TRYING TO KICK AIDE WHEN HELPING HER WITH PUR WICK. AIDE CUTTING UP DINNER AND PT STATED TO TAKE THE FOOD AWAY DUE TO HER MESSING WITH IT, AIDE HAS GLOVES ON. PT COMPLAINING THAT SHE DIDN'T EAT ALL DAY AND SHE WANTED BREAKFAST. TOLD HER ITS 5PM AND TIME FOR DINNER.
--- NOTE | 2020-11-10 18:05 | NUR ---
DR. MCKEON HERE TO SEE PT. PT UPSET ABOUT THE AIDE PLAYING WITH HER FOOD. SHE SAID SHE HAS HAD THE WORST EXPERIENCE HERE SO FAR. TRYING TO EXPLAIN THAT WE ARE JUST TRYING TO HELP, SHE SAID WE ARE HURTING HER NOT HELPING HER.
[2020-11-10 19:10] VITALS: BP 115/79
--- NOTE | 2020-11-11 05:17 | NUR ---
Assumed pt care at 1900. A/OX4,very fussy/irritable/angry and non coperative with cares,refused seroquel at HS stating she's not crazy to take psych meds. Pt also screaming out loud "help help" when care is being provided saying "you're hurting me even w/o touching pt" Sacral wound dsg change done but refused the R inner thigh. Pt had a vanco trough d/t @0130 but pt very hesitant to and it took an hour before lab draw/IV reinsertion. Required 4 staff members to assist with the lab draw;pt scratching the staff,refuses prn meds to help calm down. Vanco trough 14,page out to awaiting call back.
[2020-11-11 08:23] VITALS: BP 130/86
--- NOTE | 2020-11-11 12:51 | NUR ---
VAT ATTEMPTED PIV BUT PT COMBATIVE AND UNCOOPERATIVE EVEN WITH ASSISTANCE FROM STAFF.
[2020-11-11 15:05] VITALS: BP 130/80
--- NOTE | 2020-11-11 16:25 | NUR ---
PT HAD DONE PREP FOR DEBRIDEMENT THIS AM WAS IN PREOP AND WAS BROUGHT BACK TO UNIT AFTER REFUSING PROCEDURE AND AGITATION. DR. MCKEON WAS CONSULTED AND SAW PT THIS DAY. NO NOTES YET RELATED TO ASSESSMENT. CM FOLLOWING REGARDING DC PLANNING. REFERRALS HAD BEEN SENT TO [facility] AND [facility]. [facility] ATTEMPTED BEDSIDE EVAL THIS AM BUT PT HAD JUST PULLED HER IV OUT AND WAS AGITATED SO THEY INDICATED THEY WOULD FOLLOW ALONE IF NEEDED.
[2020-11-11 19:58] VITALS: BP 105/68
--- NOTE | 2020-11-11 20:21 | NUR ---
Assumed pt care at 0700. pt was in her room alert. pt refused all care she was unco-operative with care and medication. Pt later took Am medication. Pt refused to get dressing change in her sacrum wound. Pt was aggressive towards staff, pt was hitting scratching staff with her finger nails. Dr otero was informed of pt behavior and her refusal of care. PT States she has the right to refuse care. Patient pulled her IV out, stating that IV burders her, AND she BELIEVES SHE WAS GETTING POISONED THROUGH THE IV. IV TEAM WAS INFORMED AND THEY SENT A STAFF TO PUT IN PT IV. pt refused to cooperate. scientific technical writer, INFORMATION ASSOC and IV nurse tried to calm pt down. pt was cursing, aggressive and aggitated. DR MCKEON visited pt. AT 1414 PT got IM 2MG PRN HALDOL FOR AGGRESSION AND AGITATION. WILL CONTINUE TO MONITOR PT. haldol for aggression and agitation.
--- NOTE | 2020-11-12 07:20 | NUR ---
11-11-20 CARE TRANSFERRED 1914. PT AAOX2, VSS, RR EVEN AND NONLABORED ON RA, PT PRESENTS AGITATED AND COMBATIVE, REPORTS PAIN AND MANAGED WITH PRN MEDICATION. PT REFUSING MEDICATION AND NURSING ACTION. RECEIVED IN REPORT THAT PT HAD PULLED IV, LATER MANAGER ADMINISTRATION WAS SUCCESS IN SETTING IV, BUT PT WAS STILL COMPLAINING THAT WE ARE HURTING HER BUT JUST STANDING IN ROOM. PT MOOD CHANGES QUICKLY AND OFTEN HAS FLIGHT OF IDEAS. PT HAS TOLERATED IV MEDICATION WELL, AND ZERO S/S OF ACUTE DISTRESS NOTED.
--- NOTE | 2020-11-12 12:11 | NUR ---
HAS CONTINUED TO REFUSE ALL TREATMENTS AND CARES TODAY STATING SEVERAL TIMES "I KNOW [place] LAW AND I KNOW YOU CAN'T MAKE ME DO ANYTHING." 'IAN BEEN THROUGH THIS BEFORE AND I KNOW" REFUSED ALL ASSESSMENTS VS CARES ETC, DOES EAT MEALS PROVIDED BUT IS COMPLAINTIVE ABOUT FOOD AND DIETERY CHOICES. NO NOTED COUGH,NO S/S OF PAIN/DISCOMFORT-POSITIONS SELF FROM SIDE TO SIDE IN BED. DOES APPEAR TO BE ORIENTED TO PERSON AND PLACE SHE MENTIONS SEVERAL TIMES BEING IN THE HOSPITAL.
--- NOTE | 2020-11-12 16:27 | NUR ---
PT CONTINUES ON TWO IV ABX CURRENTLY. FAR CM KNOWS PT STILL REFUSING SURGICAL INTERVENTION. CM NOT CERTAIN OF DR. MCKEON'S ASSESSMENT OF YET. STILL TRYING TO DETERMINE IF PT WILL BE STABLE TO DC BACK TO HER AL WITH HH OR MIGHT NEED SNF. CM TO FOLLOW INDICATED WITH DC PLANNING.
[2020-11-12 20:00] VITALS: BP 132/76
--- NOTE | 2020-11-12 22:53 | NUR ---
Assumed pt care at 1900. VSS. A/OX2-3,calmer and pleasant with staff on initial encounter. Pt lying in bed soaking in pee hesitant to have cleaned but with one prompt she agreed to it stating as long as you don't hurt me. QA LEAD/sba underwriter cleaned pt up and wound care done. Pt took all meds with a few prompts. IV dislodged on Right hand, reinserted after two attempts and Abts administered. Resting quietly at this time w/o any distress noted. Fall precautions in place.
[2020-11-13 07:50] VITALS: BP 128/61
--- NOTE | 2020-11-13 08:00 | HC ---
[facility] [place] [address] CONSULTATION Name: SARAH GROVER Room #: 461-P ADM IN M.R.#: [id number] Admission: 11/09/20 Attend Phys: Arnav Angel MD Discharge: Date of : 47 Report #: [id number] THIS REPORT FOR: cc: Jeannie Blanton MD, Stany A. MD Althoff,Dallas Bolden MD ~ DATE OF SERVICE: 11/10/2020 CHIEF COMPLAINT: Sacral pressure ulceration. HISTORY OF PRESENT ILLNESS: This is a 75-year-old female patient who was admitted to the hospital due to complaints of a sacral pressure ulceration that was apparently noticed approximately a week ago. It was noted to have significant odor. Of note, she was seen by General Surgery already who immediately scheduled the debridement. The patient apparently was angry and paranoid and refused the surgical debridement. I have seen her in her room. She remains angry and belligerent in her demeanor. PAST MEDICAL HISTORY: Significant for cerebrovascular accident with a history of right hemiparesis, history of schizophrenia, multiple sclerosis, hypertension, diverticulitis, previous ankle fracture, hiatal hernia, anxiety. Previous right hip fracture, status post open reduction and internal fixation. Neurogenic bladder. SOCIAL HISTORY: Negative for current alcohol or tobacco. She lives in a nursing care facility. MEDICATIONS: Include quetiapine, Zofran, Lipitor, Norvasc, Cozaar, metoprolol, aspirin, solifenacin, buspirone, loratadine. ALLERGIES: INCLUDE ALOE VERA, BACLOFEN, BAND-AIDS, GABAPENTIN, HYDROCORTISONE, LIDOCAINE, METRONIDAZOLE, NAPROSYN, OXYBUTYNIN, PENICILLIN, PREGABALIN and SULFA. REVIEW OF SYSTEMS: Not obtainable. The patient is combative and all pertinent positives and findings are detailed in the history of the present illness. PHYSICAL EXAMINATION: VITAL SIGNS: Include temperature of 36.8, pulse 85, respiratory rate 16, blood pressure 127/58. GENERAL: This is a somewhat chronically ill-appearing female patient once again who appears to be angry and somewhat combative in her demeanor. HEAD: Normocephalic. NECK: Supple. LUNGS: Appear to be clear. [facility] [address] [place] [address] CONSULTATION Name: SARAH GROVER Room #: 461-P ADM IN M.R.#: [id number] Admission: 11/09/20 Attend Phys: Arnav Angel MD Discharge: Date of : 47 Report #: [id number] HEART: Regular rhythm. ABDOMEN: Soft. EXTREMITIES: Sacral region demonstrates an unstageable pressure ulcer to the sacral region. There is odor. There is drainage and there is a moderate fibrin. I cannot see the base due to the fibrin and slough present. I am not able to clean any of the area up as she will not permit me to do anything to her at the bedside. NEUROLOGIC: The patient's level of orientation cannot be assessed. LABORATORY STUDIES: Include sodium 143, potassium 3.6, chloride 104, CO2 of 27, BUN 29, creatinine 1.2, glucose 142. Albumin is 3.4. White blood cell count is 14.2 with a hemoglobin of 13.0. CLINICAL IMPRESSION: 1. Unstageable sacral pressure ulceration. 2. Sepsis and urinary tract infection. 3. Multiple sclerosis. 4. Mild protein-calorie malnutrition, albumin 3.4. RECOMMENDATIONS: At this point in time, I am in complete agreement that optimal care of the sacral ulcer would be a surgical debridement with postoperative wound care, possible wound VAC. With the patient's current mental status, it is unclear as to whether she is competent to make her own decisions, but for the time being, she has not been declared incompetent. We are not able to proceed with either operative debridement nor bedside debridement. We will recommend a quarter strength Dakin's moist gauze twice daily, low air loss mattress, q. 2 hour turning and positioning. We appreciate the input from General Surgery and would like to have a debridement performed if she would ever consent or should she have a DPOA appointed. We will do the best we can with what she will allow at present. Once again, continue with nutritional support. I appreciate being asked to see her in consultation. <ELECTRONICALLY SIGNED> By: Dallas Walls MD 11/13/20 0800 1612 1843 Dallas Walls MD /nt
--- NOTE | 2020-11-13 13:57 | NUR ---
PATIENT WAS IN BED AWAKE WHEN CARE ASSUMED. PATIENT IS ALERT, FORGETFUL, CONFUSED, HYPERVERBAL. PATIENT INSISTED LAYING FLAT IN BED TO EAT BREAKFAST DESPITE ENCOURAGEMENT FROM MULTIPLE STAFF. EDUCATION ON THE RISK OF ASPIRATION COMPLETED, PATIENT SEEM NOT TO UNDERSTAND THE RISK. "I KNOW, I WILL DO IT MY WAY, I DON'T NEED YOUR HELP, GO AWAY" PATIENT TOOK ALL MEDICATIONS WHOLE WITH LOTS OF ENCOURAGMENT. PATIENT REFUSED WOUND CARE, WOUN'T LET THIS SMALL PARTS ASSEMBLER TOUCH HER, OR ATTEMPT TO TURN HER. "I HAVE THE RIGHT TO REFUSE CARE, I HAVE DECIDED THAT THE DOCTOR THAT SAW ME THIS MORNING IS GOING TO DO MY SURGERY. HE IS MY NEIGHBOR. NOT DOCTOR LEXUS". PATIENT IS CURRENTLY IN BED TAKING A NAP, CALL LIGHT IN REACH. WILL CONTINUE TO ENCOURAGE CARE COMPLIANT, AND MONITOR FOR SAFETY.
--- NOTE | 2020-11-13 14:59 | NUR ---
CARE TEAM INDICATED THAT THERE HAD BEEN SOME NEW PSYC MEDS ORDERED AND ADMINISTERED. THEY INDICATED THAT THEY WANTED TO SEE HOW PT RESPONDS TO THESE CHANGES. CARE TEAM ANTICIPATE REAPPROACHING PT BEGINGING OF NEXT WEEK REGARDING DEBRIDEMENT. CM PROVIDED UPDATE TO ODALIS AT [facility]. CM TO FOLLOW INDICATED WITH DC PLANNING. IT IS ANTICPATED THAT PT WILL BE HERE OVER THE WEEKEND.
[2020-11-13 15:05] VITALS: BP 130/61
[2020-11-13 19:48] VITALS: BP 144/82
--- NOTE | 2020-11-14 05:43 | NUR ---
Pt. has had periods of being uncooperative with her care. She has been incontinent of urine. When staff provides jack care she becomes angry. Yelling at the staff and attempting to strike out at them with her hands. Scheduled psych meds given and patient rested quietly until needing direct care. Accuses staff of hurting her during turns and will refuse to be turned at times. Po tylenol given for c/o sacral pain (see emar) with some relief noted. Bed alarm is on.
[2020-11-14 07:26] VITALS: BP 118/67
[2020-11-14 15:12] VITALS: BP 127/75
--- NOTE | 2020-11-14 16:32 | NUR ---
Received awake on bed. Due medications given as prescribed. Pt verbally abusive to staff saying everyone is trying to hurt her- explained to the patient that we are just trying to take care of her but pt still aggressive and combative to staff. On MS, not on telemetry; no complains and signs of chest pain, crushing sensation and heaviness. On room air. Vital signs stable. On regular diet- tolerating well; no nausea, no vomiting and no abdominal pain noted. Incontinent of bowel and bladder, checked and changed as needed.
[2020-11-14 19:49] VITALS: BP 148/85
--- NOTE | 2020-11-15 04:13 | NUR ---
Pt. rested quietly at intervals during the night when checked on during frequent rounds. She can be hateful at times to staff. Refused some of her hs meds. Refuses to be turned and repositioned. She did allow this nurse to do her sacral wound dressing and then started yelling out loudly that we were hurting her during the treatment. Attempted to strike out at protective signal operator. Po tylenol given (see emar) for sacral pain with little relief. Bed alarm is on.
[2020-11-15 07:30] VITALS: BP 150/84
[2020-11-15 15:20] VITALS: BP 147/83
[2020-11-15 19:29] VITALS: BP 148/76
--- NOTE | 2020-11-15 19:52 | NUR ---
PT A&OX2-3, VSS, PAIN AT COCCYX. PATIENT ONLY WANTS EXTRA STRENGTH TYLENOL FOR PAIN. PATIENT REFUSES TURNS AND MEDICATION. PATIENT SCRATCHES AND HITS WHEN STAFF TURNS HER FOR ANDREI CARE. NO SIGNS OF DISTRESS. WILL CONTINUE TO MONITOR.
--- NOTE | 2020-11-16 04:29 | NUR ---
Assumed pt care at 1900. A/OX3-4,VSS.Gets irritable easily during cares. Pt took all HS meds w/o any problems. Medicated with Tylenol for sacral pain with relief reported. Wound care done w/o any problems. Pt incontinent of B&B this shift. Has been NPO since midnight for possible I&D today,pt aware of situation. Pt awake at this time stating she wants to get up and get dressed for Drs appt,reoriented and encouraged to sleep some more. Fall precautions in place.
[2020-11-16 09:30] VITALS: BP 160/82
--- NOTE | 2020-11-16 09:30 | NUR ---
PT BACK FROM SURGERY. PT STATED SHE FEELS TERRIBLE. PT WANTING SOMETHING FOR SORE THROAT. THIS MEAT SALES AND STORAGE MANAGER STATED WE HAVE LOZENGERS OR SPRAY, SHE REFUSED AND SAID I CHANGE MY MIND. PT DID HAVE A FEW BITES OF KAZAKH MUFFIN. PT SWALLOWED THIN WATER WITHOUT ISSUES. PT STATED SHE WAS OK NOW. ATTEMPTED TO GIVE MEDS WHOLE, PT REFUSED AND SAID SHE WILL TAKE LATER. ASKED PT IF SHE WANTED YOGART TO ASSIST WITH SORE THROAT AND ALSO TO GET SOME PROTIEN TO ASSIST IN HEALING. PT ACCEPTED SOME YOGART, CRUSHED MEDS AND PLACED IN YOGART, PT ATE 100% OF YOGART WITH MEDS. OFFERED ANOTHER SIP OF WATER, PT REFUSED AT THIS TIME. PT VERY SLEEPY AFTER SURGERY. VSS.
--- NOTE | 2020-11-16 13:34 | NUR ---
ADM HALDOL AND LORAZEPAM WHOLE WITH TYLENOL MEDICATION.
--- NOTE | 2020-11-16 13:36 | NUR ---
PHYSICAL THERAPY WORKING WITH HER AND SHE SAYS YOUR HURTING ME. PT CHANGED DUE TO INCON. URINE. PT ALSO HAVING ACTIVE BM. PT TRYING TO GRAB AT NURSE AND CLAW. PT TOTAL BED MADE DUE TO INCON. PT STATED SHE WANTED SOME BREAKFAST. TOLD PT THAT THEY STOP MAKING BREAKFAST AFTER A PERIOD OF TIME. PT ASKING WHY CAN'T SHE HAVE IT. ASKED PT WHAT SHE WOULD LIKE FOR DINNER. SHE STATED STEAK. PT DID HAVE A FEW BITES OF JELLO, AND PUDDING. PLACED A PUREWICK INTO PLACE FOR INCON. PT COMPLAINING THAT SHE HURTS. ADM TYLENOL 500MG 2 TABS PO FOR PAIN OF 10 TO BUTT. PT ASKING WHY HER BUTTOCKS HURTS. PT PULLING AT IV ALSO, STATED TO PT SHE NEEDS THAT FOR ABX. SHE SAID THAT THEY SAID SHE DIDN'T NEED ABX ANYMORE.
--- NOTE | 2020-11-16 15:41 | NUR ---
ADM NORCO 5MG PO FOR PAIN TO BUTTOCKS OF 8 ON 1-10 SCALE.
--- NOTE | 2020-11-16 19:43 | NUR ---
STARTED VANCO ABX. PT STILL SLEEPING WITH EYES CLOSED. DIDN'T SEE ANY URINE IN PUREWICK SYSTEM AT THIS TIME.
[2020-11-17 05:54] LABS: HEMATOCRIT 33.4 % (37.0-47.0); HEMOGLOBIN 10.8 gm/dL (12.0-15.0); MCH 31.1 pg (26.0-34.0); MCHC 32.2 g/dL (28.0-37.0); MCV 96.3 fL (80.0-100.0); PLATELET COUNT 294 thou/uL (150-400); RBC 3.47 mil/uL (4.20-5.00); RDW 15.6 % (10.5-14.5); WBC 9.3 thou/uL (4.0-11.0)
[2020-11-17 06:12] LABS: ALBUMIN 2.3 g/dL (3.4-5.0); CREATININE 0.5 mg/dL (0.6-1.0); POTASSIUM 4.7 mmol/L (3.5-5.1); TOTAL BILIRUBIN 0.5 mg/dL (0.2-1.0); TOTAL PROTEIN 6.1 g/dL (6.4-8.2)
[2020-11-17 07:34] VITALS: BP 158/95
--- NOTE | 2020-11-17 08:12 | NUR ---
Assumed pt care at 1900. A/OX3 with forgetfulness noted but able to make needs known. Post I&D sacral wound.Pt coperative with cares this shift. Wound care done as ordered. Medicated with Medina for Back pain with relief reported.Incontinent of bladder,keeps pulling off the purewick. Fall precauitions in place.
[2020-11-17 08:16] LABS: ABSOLUTE NEUTROPHILS 8.1 thou/uL (1.4-8.2)
[2020-11-17 08:17] LABS: ANISOCYTOSIS 1+
--- NOTE | 2020-11-17 15:16 | NUR ---
PT HAD I& D YESTERDAY PT CONTINUES ON TWO IV ABX. CLINICAL UPDATES SENT TO [facility] THIS DAY FRO REVIEW FOR CONTINUED WC AND IV ABX DC READY IN 24-48HRS. CM TO FOLLOW INDICATED WITH DC PLANNING.
--- NOTE | 2020-11-17 16:28 | NUR ---
FAXED CLINICAL UPDATE TO [facility] RECEIVED CONFIRMATIONL. FAXED CLINICAL UPDATE TO [facility] RECEIVED CONFIRMATION LEFT G WITH GIANFRANCO IN ADM.
--- NOTE | 2020-11-17 19:41 | NUR ---
Assumed pt care this am, pt is beligerent and would refuse q2 turns, wound care and dressing changes. Refuse meals stating this did not taste good and would throw tray cover to the floor. Would always cry out she was being hurt when no one was even near her bed. Very verbally abuse and condescending. Wound care was done, ext rocha in place but would pull this out. POC followed, endorsed to the night nurse.
[2020-11-17 19:57] VITALS: BP 155/80
--- NOTE | 2020-11-18 05:05 | NUR ---
Assumed pt care at 1900. A/OX3,able to make needs known.Co-operative with cares this shift,wound care/pictures taken. Incontinent of bladder,pericare done as needed. Medicated for back pain with relief reported. Fall precautions in place,calls approp for help. Will continue to monitor pt.
[2020-11-18 08:00] VITALS: BP 140/67
[2020-11-18 15:00] LABS: URINE BILIRUBIN NEGATIVE (Negative); URINE BLOOD 2+ (Negative); URINE CLARITY CLOUDY; URINE COLOR YELLOW; URINE GLUCOSE-RANDOM* NEGATIVE (Negative); URINE KETONES NEGATIVE (Negative); URINE NITRITE-REFLEX NEGATIVE (Negative); URINE PROTEIN (DIPSTICK) TRACE (Negative)
[2020-11-18 15:01] LABS: URINE LEUKOCYTES-REFLEX 3+ (Negative)
[2020-11-18 15:20] LABS: CASTS None Seen /LPF (None Seen); CRYSTALS None Seen /LPF (None Seen); SQUAMOUS 0-3 Few /LPF (0-3)
[2020-11-18 15:21] LABS: BACTERIA-REFLEX 1-9 Few /HPF (None Seen); URINE RBC 0-2 Rare /HPF (0-2); YEAST-REFLEX Present (None Seen)
--- NOTE | 2020-11-18 16:10 | NUR ---
[facility] INDICATED THEY CAN'T ACCEPT PT DUE TO BEHAVIORS. IGNITE STILL FOLLOWING. THEY WERE CONCERNED ABOUT TAKING PT IF SHE DECIDES SHE WASNT LTC BUT NOW [facility] INDICATED THAT THEY MAY CONSIDER TAKING LTC ON CASE BY CASE BASIS. LIASION TO VISIT WITH PT TOMORROW AM AT 9:00. PT HAD CASAS PLACE THIS DAY. CM MET WITH HER AT BEDSIDE AND SHE INDICATED SHE WAS INTERESTED IN SKILLED THEN LTC AND NOT RETURNING TO [facility]. CM CALLED AND LEFT VM WITH ODALIS AT [facility] AWAITING RESPONSE. CM TO FOLLOW INDICATED WITH DC PLANNING.
[2020-11-18 19:48] VITALS: BP 130/73
--- NOTE | 2020-11-18 20:02 | NUR ---
Assumed pt care this am vs stabe, still agressive and beligerent to staff refusing Q2 turns and wound care. FC placed as per order UA sent down d/t milk tea colored urine. Started bailee Clinimix, poor oral intake noted, refuses most meal through out the day. POC followed, pain is managed with medication. endorsed to the night nurse.
--- NOTE | 2020-11-19 04:14 | NUR ---
ASSUMED CARE OF PT AT 1900HRS. PT AOX2 AND NEEDS MUST BE ANTICIPATED. FALL PRECAUITON IN PLACE. PT REFUSED SOME TURNS. WOUND DRESSING CHANGED. PPN CONTINUED. PT DENIED PAIN, NAUSEA OR SOA. PT WAS ABLE TO TAKE ALL HS MEDS WHOLE WITH WATER. PT SLEPT PART OF THE SHIFT. VSS AND NO S/S OF ACUTE DISTRESS. WILL CONTINUE TO MONITOR.
[2020-11-19 07:26] VITALS: BP 154/77
[2020-11-19 11:01] VITALS: BP 154/77
--- NOTE | 2020-11-19 14:39 | NUR ---
BRUCE MATA CAME TO SPEAK WITH PT THIS AM BUT SHE HAD GOTTEN HALDOL LAST NIGHT AND WASN'T PARTICULARLY CONVERSANT DURING VISIT. CM SPOKE WITH DR. MCKEON REGARDING PT AND SHE INDICATED THAT SHE INTENDED TO ADJUST SOME MEDS. CM TO REACH OUT TO ODALIS AT [facility] AGAIN TO DISCUSS DC PLANNING. PT STATED YESTERDAY THAT SHE IS RECEPTIVE TO SKILLED AND POSSIBLY LTC PLACEMENT. CM TO FOLLOW INDICATED WITH DC PLANNING.
[2020-11-19 15:38] VITALS: BP 147/80
--- NOTE | 2020-11-19 19:14 | NUR ---
ASSUMED CARE OF PATIENT AT 0700. ASSESSMENT CHARTED. MEDICATIONS ADMINISTERED PER EMAR. VSS. PATIENT WAS LETHARGIC/SLEEPY THIS SHIFT AND DID NOT OPEN HER EYES. C/O PAIN WHEN TURNED AND WORKING W PT/OT. PRN PAIN MED ADMINSTERED HOWEVER SEDATIVES HELD FOR SLEEPINESS. PATIENT HAS BEEN GETTING REPOSITIONED EVERY [address] MARADIAGA SAW PATIENT AND DETERMINED SACRAL WOUND NEEDS ADDITIONAL DEBRIDEMENT. PATIENT WILL BE NPO AFTER MIDNIGHT. CONSENT WILL NEED TO BE VERBAL OVER PHONE FROM [facility] PATIENT IS UNABLE TO SIGN FOR HERSLEF. REPORT ENDORSED TO NOC. WALTER.
[2020-11-19 20:17] VITALS: BP 129/77
--- NOTE | 2020-11-20 04:54 | NUR ---
ASSUMED CARE OF PT AT 1900HRS. PT IS DORWSY BUT AROUSEABLE THIS SHIFT. FALL PRECAUTION IN PLACE. CASAS IN PLACE AND IS PATIENT. PT TURNED Q2-3H. PPN CONTINUED. PT PLACED NPO AT [place] FOR PROCEDURE IN THE AM. ATIVAN HELD THIS SHIFT. PT WAS ABLE TO SLEEP MOST OF THE SHIFT. VSS AND NO S/S OF ACUTE DISTRESS. WILL CONTINUE TO MONITOR.
[2020-11-20 04:57] LABS: ALBUMIN 2.4 g/dL (3.4-5.0); CALCIUM 8.6 mg/dL (8.5-10.1); CREATININE 0.5 mg/dL (0.6-1.0); HEMATOCRIT 35.2 % (37.0-47.0); HEMOGLOBIN 11.7 gm/dL (12.0-15.0); MCH 31.9 pg (26.0-34.0); MCHC 33.2 g/dL (28.0-37.0); MCV 96.1 fL (80.0-100.0); RBC 3.66 mil/uL (4.20-5.00); RDW 15.9 % (10.5-14.5); TOTAL BILIRUBIN 0.3 mg/dL (0.2-1.0); TOTAL PROTEIN 6.3 g/dL (6.4-8.2); WBC 9.8 thou/uL (4.0-11.0)
[2020-11-20 07:31] VITALS: BP 142/80
--- NOTE | 2020-11-20 14:47 | NUR ---
ASSUMED CARE OF PATIENT AT 0700. ASSESSMENT CHARTED. MEDICATIONS HELD PER NPO STATUS. VSS. PATIENT IS ALERT TO SELF AND PLACE, FORGETFUL. PATIENT HAD DEBRIDEMENT COMPLETED THIS DAY BY DR. MARADIAGA. PATIENT TOLERATED WELL. PPN TO INFUSE ON L FA UPON RETURN TO UNIT POST ABX THX. PATIENTS DIET ENTERED BACK TO REGULAR ON COMPUTER. AWAITING REPORT FROM PACU.
--- NOTE | 2020-11-20 15:43 | NUR ---
PT HAD REPEAT DEBRIDEMENT DONE THIS DAY. PT CONTIUNUES ON TWO IV ABX. CM SENT LEVEL 11 SCREENING TO PSYCHIATRIST FOR COMPLETION FOR SHORT TERM SKILLED REHAB STAY [place] BEGINING OF NEXT WEEK. CM FOLLOWING REGARDING DC PLANNING.
[2020-11-20 16:33] VITALS: BP 158/84
--- NOTE | 2020-11-20 16:58 | PATH ---
[facility] [address] [place] [address] PATHOLOGY RPT PROCEDURE Name: SAMANTHA GROVER Room #: 461-P ADM IN M.R.#: [id number] Admission: 11/09/20 Date of : 47 Discharge: Report #: [id number] Path Case #: [id number] [facility] Accession Number: [id number] . 01 Material submitted: . sacrum - SACRAL ULCER TISSUE . 01 Clinical history: . SEPSIS UNSPECIFIED ORGANISM UNSPECIFIED PROTEIN-CALORIE MALNUTRITION . 02 Diagnosis: Sacral ulcer tissue, incision and drainage: - Marked acute inflammation along with fibrinoid degeneration, gangrenous necrosis as well as fat necrosis, compatible with wound tissue. (IUV/db; 11/18/2020) LBQ 11/18/2020 1245 Local . 02 Electronically signed: . Ashlyn lElison MD, Pathologist NPI- [id number] . 01 Gross description: . The specimen is received in formalin, labeled "Edna, Samantha, sacral ulcer tissue" and consists of necrotic dark coleman skin and underlying tissue measuring 3.0 x 1.8 x 1.4 cm. Physician Relations Representative sections are submitted in A1. (SDY; 11/17/2020) SYU/SYU 11/17/2020 1037 Local . 02 Pathologist provided ICD-10: L08.9, L89.159 . 02 CPT . 317079 Specimen Comment: A courtesy copy of this report has been sent to [phone] Specimen Comment: [id number] Specimen Comment: Report sent to / DR HUSAIN Specimen Comment: A duplicate report has been generated due to demographic updates. Performed at: [address] [id number] MD Seth Lantigua MD Phone: [phone] Performed at: [address] [address] PATHOLOGY RPT PROCEDURE Name: SAMANTHA GROVER Room #: 461-P ADM IN M.R.#: [id number] Admission: 11/09/20 Date of : 47 Discharge: Report #: [id number] Path Case #: [id number] [address] [id number] MD Ashlyn Ellison MD Phone: [phone]
[2020-11-20 20:03] VITALS: BP 136/78
--- NOTE | 2020-11-21 06:36 | NUR ---
ASSUMED CARE OF PT AT 1900. PT IS A/O X2 AND IS ON BEDREST. APPEARS DROWSY AND C/O PAIN GENERALIZED AND TO HER SACRUM. PRN PAIN MEDICATION PROVIDED DIRECTED. ROOM AIR. CASAS IN PLACE AND DRAINING YELLOW URINE. LORAZEPAM NOT GIVEN THIS AM WAS NOT INDICATED. PT STILL APPEARS DROWSY. FALL PRECAUTIONS IN PLACE, CALL LIGHT IS WITHIN REACH.
[2020-11-21 07:12] VITALS: BP 138/72
--- NOTE | 2020-11-21 13:09 | NUR ---
ASSUMED PT CARE THIS AM. PT COMBATIVE AND NONCOOPERATIVE WITH CARES. REFUSING FULL BODY ASSESSMENT. ASSESSED ALLOWED. CASAS IN PLACE. REFUSED MEDS THIS AM. PPN HUNG THIS AM, NO PPN HANGING WHEN COMING ON SHIFT THIS AM. IV PATENT. PT BEING REPOSITIONED ALLOWED. FALL PRECAUTIONS IN PLACE.
[2020-11-21 15:21] VITALS: BP 131/84
[2020-11-21 21:42] VITALS: BP 148/81
--- NOTE | 2020-11-22 03:37 | NUR ---
PT IS A/O X2 AND IS ON BEDREST. DRSGS TO SACRUM CHANGED AND ARE CURRENTLY C/D/I. REFUSED HS MEDS. PULLED OUT CASAS. NO APPARENT TRAUMA NOTED. REPLACED WITH A NEW CASAS. PT AT THIS TIME IS LYING IN HER BED AND APPEARS TO BE SLEEPING.FALL PRECAUTIONS IN PLACE, CALL LIGHT IS WITHIN REACH.
[2020-11-22 05:49] VITALS: BP 146/92
[2020-11-22 07:22] VITALS: BP 126/55
--- NOTE | 2020-11-22 12:12 | NUR ---
ASSUMED PT CARE THIS AM. WOUND DRESSING CHANGED, PT TOLERATED WELL. IV PATENT, PPN INFUSING WITHOUT ISSUE. CASAS CATHETER IN PLACE DRAINING WELL. PT COMBATIVE WITH TURNS, BUT REPOSITIONING ALLOWED. REFUSED ALL PO MEDS OTHER THAN PAIN PILL, DIVALPROEX, AND PO ANTIBIOTIC. ON ROOM AIR. GIVEN A PAIN MED FOR GENERALIZED PAIN, SLEEPING UPON REASSESSMENT. FALL PRECAUTIONS IN PLACE, PT CALLS WHEN NEEDED OCASIONALLY.
[2020-11-22 19:45] VITALS: BP 126/76
--- NOTE | 2020-11-23 02:51 | NUR ---
PT CARE ASSUMED WITH PT IN BED .PT IS A/O X2.PT IS CONFUSE AND FORGETFUL.PT REFUSED MEDICATIONS AND LATER ASKED THE NURSE TO BRING MEDICATIONS FOR HER TO TAKE.PT RESIST ADL AND TURNING AND DOESNOT WANT TO BE TOUCH.PPN RUNNING AT 75CC/HR AND IV ACCESS ON RFA .WILL CONTINUE TO MONITOR POC
[2020-11-23 07:29] VITALS: BP 103/59
[2020-11-23 10:07] LABS: ABSOLUTE NEUTROPHILS 6.8 thou/uL (1.4-8.2); BASOPHILS 0.6 % (0.0-2.0); EOSINOPHILS 4.2 % (0.0-3.0); HEMOGLOBIN 11.9 gm/dL (12.0-15.0); LYMPHOCYTES 20.9 % (24.0-44.0); MCH 31.5 pg (26.0-34.0); MCV 95.7 fL (80.0-100.0); MONOCYTES 10.5 % (1.0-8.0); PLATELET COUNT 410 thou/uL (150-400); POLYS 63.8 % (36.0-66.0); RBC 3.76 mil/uL (4.20-5.00); RDW 15.9 % (10.5-14.5); WBC 10.7 thou/uL (4.0-11.0)
[2020-11-23 10:22] LABS: ALBUMIN 2.8 g/dL (3.4-5.0); CALCIUM 9.3 mg/dL (8.5-10.1); CREATININE 0.6 mg/dL (0.6-1.0); MAGNESIUM 2.3 mg/dL (1.8-2.4); POTASSIUM 4.2 mmol/L (3.5-5.1); TOTAL BILIRUBIN 0.4 mg/dL (0.2-1.0)
--- NOTE | 2020-11-23 10:55 | NUR ---
ASSUMED PT CARE THIS AM. PT VSS, A&OX2. PT CALLING OUT NEEDED ONCE INSTRUCTED HOW TO USE THE CALL LIGHT. PT BEING COOPERATIVE WITH STAFF AND TURNING ALLOWED. CASAS CATHETER IN PLACE, DRAINING WELL. IV PATENT, PPN INFUSING. ON ROOM AIR. HYDRATION ENCOURAGED. FALL PRECAUTIONS IN PLACE.
--- NOTE | 2020-11-23 16:17 | NUR ---
PT HAD REPEAT I&D MONDAY. CONTINUES ON 2 IV ABX. LEVEL II SCREENING HAD BEEN PROVIDED TO PSYCHIATRIST TO COMPLETE. IGNITE FOLLOWING FOR POSSIBLE ADMISSION FOR SKILLED THEN POSSIBLE PP LTC. CLINICAL UPDATE SENT THIS DAY. PT ALSO ON PPN. CM TO FOLLOW INDICATED WITH DC PLANNING.
[2020-11-23 17:46] VITALS: BP 145/73
[2020-11-23 21:58] VITALS: BP 138/78
[2020-11-24 04:19] VITALS: BP 123/64
--- NOTE | 2020-11-24 04:30 | NUR ---
Assumed pt care at 1900. A/OX2-3,confused on and off screams "you're hurting me" during repositioning/woundcare. Refused to take her Depakote stating "those blues pills make my stomach sick" I have a right to refuse them right? Pt only took Ativan at HS. Pt's IV on RFA leaking, reinserted on the LFA with one attempt and PPN infusing at this time w/o any problems. Mares to DD with yellow urine.Repositioned as allows. Fall precautions in place,resting quietly w/o any distress. Will continue to monitor pt.
[2020-11-24 07:54] VITALS: BP 111/56
--- NOTE | 2020-11-24 12:17 | NUR ---
ASSUMED PT CARE THIS AM. PT VSS, A&OX2. PT COMBATIVE AT FIRST, BUT HAS SINCE ALLOWED STAFF TO TURN HER AND ASSESS HER. WOUND DRESSING CHANGED. PT RECEIVED A COMPLETE BATH TODAY. COMPLAINS OF GENERALIZED PAIN, RESPONDS WELL TO MEDS GIVEN PER EMAR. CASAS CATHETER IN PLACE. PPN INFUSING. REFUSED MOST MEDS THIS AM OTHER THAN PO ANTIBIOTIC AND PAIN MED. ON ROOM AIR. FALL PRECAUTIONS IN PLACE.
--- NOTE | 2020-11-24 14:19 | NUR ---
CM FOLLOWED UP WITH PT AT BEDSIDE THIS DAY AND SHE INDICATED THAT SHE WAS INTERESTED IN SPEAKING TO SOMEONE FROM [facility] REGARDING SKILLED AND THEN TRANSITION TO LTC PRIVATE PAY. SHE INDICATED THAT SHE'S NOT DESTITUTE THAT SHE WOULD BE ABLE TO PAY RPRIVATLY FOR A TIME AFTER REHAB. PT EXPRESSED UNDERSTANDING ABOUT DIFFERENCE BETWEEN MEDICARE AND MEDICAID. CM NOTIFIED LIAISON AT [facility] THAT PT WAS INTERESTED IN SPEAKING ABOUT OPTIONS. GIANFRANCO VISITING WITH PT CURRENTLY. CM FOLLOWING. THERE HAD BEEN BEEN DISUSSION ABOUT TRANSFERING PT FOR REV CODES FOR LTAC. CM FOLLOWING. DR. TERRIE NOGUERA MET WITH PT THIS AM AND PT HAD NOT BEEN RECEPTIVE TO PALLIATIVE CARE DISCUSSION AT TIME OF VISIT STATED "MIND YOUR OWN BUISSNESS." CM TO FOLLOW INDICTED WITH DC PLANNING.
--- NOTE | 2020-11-24 14:36 | NUR ---
FAXED CLINICAL UPDATE TO [facility] RECEIVED CONFIRMATION AND LEFT MSG WITH GIANFRANCO IN ADM.
--- NOTE | 2020-11-24 14:58 | NUR ---
GENE VISITED AND INDICATED THAT AFTER DISCUSSION COST WITH PT SHE INDIATED THAT SHE ISN'T ABLE TO AFFORD 6 MONTHS LTC PAYMENT UP FRONT. IT WAS INDICATED THAT [facility] MIGHT BE ABLE TO REVIEW REFERRAL AND POSSIBLE ACCEPT BUT THEY WOULD LIKELY WANT PT TO HAVE A PENDICATED MEDICAID APPLICATION. MORIAH SPOKE WITH PT AND SHE IS RECEPTIVE TO SPEAKING WITH [facility]. MORIAH ALSO SPOKE WIHT PT ABOUT POSSIBLY TRANSFERING TO ANOTHER UNIT TO QUALIFY FOR LTAC PLACEMENT AND SHE STATED THAT SHE WAS AGREEABLE TO WHATEVER WOULD GET HER OUT OF HERE. CM TO FOLLOW INDICATED WITH DC PLANNING.
[2020-11-24 21:02] VITALS: BP 137/67
--- NOTE | 2020-11-25 05:03 | NUR ---
Assumed pt care at 1900. A/OX2-3,able to make needs known and states she has a right to refuse care. Pt refused HS meds only took pain meds/ativan, lovenox and IV abts stated she doesn't need stool softners thats her business not to poop in so many days. Pt had no IV at shift change, IV inserted with one attempt on LFA,wrapped in coban and PPN infusing w/o any problems. Pt repositoned w/o any problems, wound care done as ordered. Resting quietly at this time will continue to monitor pt.
[2020-11-25 07:10] VITALS: BP 127/65
--- NOTE | 2020-11-25 11:52 | NUR ---
ASSUMED PT CARE THIS AM. PT VSS, A&OX2. PT DROWSY THIS AM, DOSE OF LORAZEPAM HELD DUE TO THIS. PT BEING REPOSITIONED ALLOWED. WOUND DRESSING CHANGED, WOUND PICTURE TAKEN. PT HAD A BOWEL MOVEMENT TODAY, WAS LIGHT BROWN IN COLOR, SMALL IN SIZE. IV PATENT, PPN INFUSING. ON ROOM AIR. FALL PRECAUTIONS IN PLACE. ENCOURAGED TO EAT, BUT POOR APPETITE.
[2020-11-25 15:40] VITALS: BP 123/79
[2020-11-25 19:29] VITALS: BP 153/88
--- NOTE | 2020-11-26 06:06 | NUR ---
ASSUMED PT'S CARE BEGINNING OF THIS PM SHIFT. ALERT AND ORIENTED X2. CONFUSION. FORGETFULNESS. NONCOMPLIANT WITH PO MEDS. PT VOICED THAT SHEW WANTED PAIN MEDS AT BEDTIME. MEDS PROVIDED, PT VOICED SHE WOULD NOT TAKE MED SHE "HAS THE RIGHT TO REFUSE MEDS'. DR GARDNER VOICED THAT PT CAN HAVE TYLENOL IF SHE TAKES HER MEDS. PT DID NOT TAKE ANY MEDS. PT SLEPT OFF AND ON. PT HAD A LARHE BM THIS SHIFT. CASAS IN PLACE FOR VOIDING. CALL LIGHT WITHIN REACH. WILL CONTINUE TO MONITOR.
[2020-11-26 08:20] VITALS: BP 120/78
[2020-11-26 09:57] VITALS: BP 120/78
--- NOTE | 2020-11-26 11:24 | NUR ---
FAXED REFERRAL TO [facility]/ [facility] SPOKE WITH ROSEY IN ADM SHE CAN ACCEPT WILL NEED A MORE RECENT COVID TEST RESULT.
--- NOTE | 2020-11-26 14:58 | NUR ---
Patient was agitated during attempted IV insertion in the Left forearm. Provider was notified. Student Nurse administerd Lorazepam 0.5 mL IM injection. Injection was supervised by Jennifer RN. Patient responded well to injection.
--- NOTE | 2020-11-26 16:56 | NUR ---
A LONG #22 PERIPHERAL IV PLACED WITH ULTRASOUND. AFTER PLACEMENT A PICC WAS ORDERED TO BE PLACED WHEN THE IV IS NO LONGER FUNCTIONING. ORDER NOTED
--- NOTE | 2020-11-26 18:01 | NUR ---
ASSUMED CARE OF PATIENT AT SHIFT CHANGE. ASSESSMENT CHARTED. MEDS ADMINSTERED PER EMAR. PATIENT IS A&OX3 AND MAKES NEEDS KNOWN. VOICES PAIN AT 7/10 BUT REFUSES PAIN MEDS WHEN GIVEN TO HER. PATIENT OFFERED REPOSITIONING EVERY 2 HRS; PATIENT DOES NOT LIKE TO BE MOVED AND YELLS OUT "YOU'RE HURTING ME" WHEN REPOSITIONED. IV ON L FA DISCOVERED TO BE INFILTRATED; IV DISCONTINUED AND SITE/EXTREMITY ELEVATED; COLD COMPRESS APPLIED. NEW IV ON R UA; ORDER FOR IV PICC INSERTION TO BE COMPLETED IF CURRENT IV FAILS. PATIENT VERY SLEEPY/TEARFUL THIS SHIFT. WOUND VAC CHANGED BY WOUND RN. REFUSED WOUND CARE TO STAGE IV ULCER; REFUSED Z GUARD BUT STAFF MANAGED TO APPLY. NO BM THIS SHIFT. PATIENT CONTINUES VOICING DESIRE TO LEAVE; "I WANT O-U-T OUT!". NURSING STAFF AND STUDENTS ATTEMPTED TO PROVIDE COMFORT TO PATIENT. FALL PRECAUTIONS IN PLACE. PATIENT NOT IMPULSIVE THIS SHIFT BUT NEAR NURSES STATION. WILL CONTINUE TO MONITOR AND FOLLOW PLAN OF CARE
[2020-11-26 20:59] VITALS: BP 116/71
--- NOTE | 2020-11-27 04:09 | NUR ---
ASSUMED CARE OF PT AT 1900. PT IS A/O X2 AND IS ON BEDREST. PT C/O BACK PAIN. PRN PAIN MEDICATION GIVEN. ROOM AIR. CASAS IN PLACE AND DRAINING YELLOW URINE. WOUND VAC IN PLACE AND WORKING APPROPRIATELY. IV INFILTRATED. AWAITING IV TEAM TO ARRIVE IN THE AM FOR A PICC LINE TO BE INSERTED PER PHYSCIAN ORDERS. AT THIS TIME, PT IS LYING IN HER BED AND APPEARS TO BE SLEEPING. WILL CONTINUE TO MONITOR.
[2020-11-27 07:38] VITALS: BP 120/66
--- NOTE | 2020-11-27 09:39 | NUR ---
MORIAH SPOKE WITH ROSEY AT [facility] YESTERDAY AND SHE INDICATED THAT THEY WEREN'T SURE THEY WOULD BE ABLE TO ACCEPT PT. SHE INDICATED SHE WOULD HAVE TO RUN REFERRAL BY THE ED AND WOULD FOLLOW UP WITH CM. REFERRAL SENT TO [facility] TO SEE IF THEY MIGHT BE ABLE TO ACCEPT PT SITE NEUTRAL FOR CONTINUED WC AND IV ABX. CM TO FOLLOW INDICATED WITH DC PLANNING. PT HAVING PICC PLACED THIS DAY.
--- NOTE | 2020-11-27 11:24 | NUR ---
FAXED REFERRAL TO [facility] SPOKE WITH YAMIL IN ADM HE CAN ACCEPT PT TODAY.
--- NOTE | 2020-11-27 11:44 | NUR ---
WOUND CARE F/U; I AM HERE TODAY ROUNDING WITH VAIBHAV THEODORE RN. THE WOUNDS SHOW SUBSTANTIALLY LESS SLOUGH TODAY USING A VERAFLOW KCI VAC. THE WOUND IS CONFUSED AND EASILLY AGITATED. NON ODOROUS WOUND. THE WOUND IS REDPONDING WELL TO THE WOUND VAC. SARA THEODORE PRESENT. RECOMMENDATIONS; CONTINUE VAC THERAPY WITH VERAFLOW. DISCUSSED WITH RN
--- NOTE | 2020-11-27 12:19 | NUR ---
VAT CALLED TO PLACE PICC LINE. PT'S LABS,MEDS,HX,ORDER AND CONSENT VERIFIED. SILVIA BASILIC WAS WIDELY PATENT WITH USG. 4FR DL POWER PICC TRIMMED TO 40CM INSERTED TO 2CM EXTERNAL. PT TOLERATED WELL. STAT CXR DONE. CONFIRMED PLACEMENT AT [facility]. PICC RELEASED FOR IMMEDIATE USE PER PROTOCOL. BLEEDING AT SITE,GAUZE PLACED UNDER DRG. LOOSE COBAN ON SO PT DOES NOT PULL LINE OUT.
[2020-11-27] MEDS ORDERED: NYSTATIN100000 UNI PO (13:08)
[2020-11-27] MEDS ORDERED: HYDROCODON-ACE1 EAC7 PO (13:08)
[2020-11-27] MEDS ORDERED: MIRALAX17 GM PO (13:08)
[2020-11-27] MEDS ORDERED: VITAMIN B-12100 MC1 PO (13:08)
[2020-11-27] MEDS ORDERED: FOLIC ACID1 MG PO (13:08)
[2020-11-27] MEDS ORDERED: DEPAKOTE SPRIN125 MG PO (13:08)
[2020-11-27] MEDS ORDERED: LORAZEPAM 0.50.5 MG PO (13:08)
[2020-11-27] MEDS ORDERED: MEROPENEM1 GM IV (13:09)
--- NOTE | 2020-11-27 13:54 | NUR ---
REFERRAL HAD BEEN SENT TO [facility] FOR REVIEW FOR POSSIBLE ADMISSION. [facility] INDICATED THEY COULD ACCEPT PT THIS DAY. CHART COPY ORDERED. CM NOTIFIED PT AND SHE IS AWARE AND AGREEABLE. KC IS ARRANGED FOR 1700. PT IS BEING ACCEPTED TO DR. TIAN. PHONE NUMBER FOR REPORT IS . CM NOTIFIED BROTHER, BONNIE GARZA, AND [facility]. NO OTHER CM INTERVENTION INDICATED. CASE CLOSED.
--- NOTE | 2020-11-27 16:52 | NUR ---
ASSUMED CARE OF PATIENT AT SHIFT CHANGE. ASSSESSMENT CHARTED. MEDS ADMINISTERED PER EMAR. VSS. PATIENT IS A&OX3 BUT VERY DELUSIONAL AND CONFUSED. WOUND VAC CHNAGED THIS DAY AND D/C'D FOR DISCHARGE. PICTURES TAKEN. NEW PICC INSERTION BY VASCULAR ACCESS NURSE. PPN AND ABX INFUSED W NO ISSUES. PATIENT ANXIOUS ABOUT "GOING BACK HOME". DISCHARGE APPROVED AND PATIENT GOING TO [facility]. TRANSPORTATION ARRIVED AT 1630 AND PATIENT LEFT UNIT SHORTLY AFTER. VOICED NO NEEDS AT TIME OF DISCHARGE.
== END 2020-11-27 18:04 | DRG 853 ==
LOC: ER 11:09 → 4W 14:23 → EROBS 14:23 → 4W 20:20
PROVIDERS: Internal Medicine; Physician Assistant; Psychiatry & Neurology Psychiatry; Specialist; ADMIT Hospitalist; ATTEND Hospitalist
PROC: 0JB70ZZ Excision of Back Subcutaneous Tissue and Fascia, Open Approach (ICD-10-PCS; principal; 2020-11-16)
PROC: 0JBC0ZZ Excision of Pelvic Region Subcutaneous Tissue and Fascia, Open Approach (ICD-10-PCS; principal; 2020-11-16)
PROC: 0JB70ZZ Excision of Back Subcutaneous Tissue and Fascia, Open Approach (ICD-10-PCS; 2020-11-20)
PROC: 02HV33Z Insertion of Infusion Device into Superior Vena Cava, Percutaneous Approach (ICD-10-PCS; 2020-11-27)
DX: A41.9 Sepsis, unspecified organism (principal); L89.154 Pressure ulcer of sacral region, stage 4; E43 Unspecified severe protein-calorie malnutrition; L89.213 Pressure ulcer of right hip, stage 3; N17.9 Acute kidney failure, unspecified; B37.0 Candidal stomatitis; I69.351 Hemiplegia and hemiparesis following cerebral infarction affecting right dominant side; I10 Essential (primary) hypertension; F41.9 Anxiety disorder, unspecified; G35 Multiple sclerosis; E78.5 Hyperlipidemia, unspecified; F32.9 Major depressive disorder, single episode, unspecified; N31.9 Neuromuscular dysfunction of bladder, unspecified; F09 Unspecified mental disorder due to known physiological condition; M81.0 Age-related osteoporosis without current pathological fracture; G47.00 Insomnia, unspecified; R63.0 Anorexia; K59.00 Constipation, unspecified; R13.10 Dysphagia, unspecified; Z51.5 Encounter for palliative care; Z20.822 Contact with and (suspected) exposure to COVID-19; Z98.41 Cataract extraction status, right eye; Z98.42 Cataract extraction status, left eye; Z79.899 Other long term (current) drug therapy; Z88.1 Allergy status to other antibiotic agents; Z88.2 Allergy status to sulfonamides; Z88.8 Allergy status to other drugs, medicaments and biological substances; Z79.82 Long term (current) use of aspirin; Z68.27 Body mass index [BMI] 27.0-27.9, adult; Z88.0 Allergy status to penicillin
CPT/HCPCS: 10040; 10045; 27000; 50010; 50101; 50386; 50403; 57091; 57119; 57120; 57188; 57189; 62110; 62900; 70005